=== PATIENT | female | born 1960 | race Caucasian/White ===

== ENCOUNTER 2018-10-12 08:25 | Outpatient (REF) | payer BC, SELFPAY ==
[2018-10-12 15:25] LABS: ALT 30 U/L (12-78); AST 21 U/L (15-37); Calculated LDL 143 mg/dL; Cholesterol 227 mg/dL (50-200); HDL Cholesterol 69 mg/dL (40-60); Triglyceride 79 mg/dL (30-150)
== END 2018-10-12 08:45 ==
LOC: NCHCN 08:25
PROVIDERS: PCP Nurse Practitioner Family; Visit Provider Nurse Practitioner Family
DX: Z13.220 Encounter for screening for lipoid disorders (principal)
CPT/HCPCS: 80061; 83721; 84450; 84460

== ENCOUNTER 2018-10-29 13:44 | Outpatient (REF) | payer BC, SELFPAY ==
--- NOTE | 2018-10-29 09:45 | PAPFT_PTH ---
PATIENT: Whitney Fam LOC: [facility] U#:[id number] AGE/SX: 58/F ROOM: RE10/29/[address]: Bernice Cheung : 1960 BED: DIS: 10/29/2018 SPEC #: [id number] RECD: 10/30/18 13:01 STATUS: KYLE REViri #: [id number] SETH: 10/29/18 09:[address]: Bernice Cheung DEPT: [facility] Cytology RECD BY: Xiomara Rees Tissues: 1 - CX/ENDOCX FOR PAP SMEARS Procedures: PAP THIN PREP/UVM Screening HPV DNA PROBE Comments: [id number]
== END 2018-10-29 14:04 ==
LOC: NCHCN 13:44
PROVIDERS: PCP Nurse Practitioner Family; Visit Provider Nurse Practitioner Family
DX: Z00.00 Encounter for general adult medical examination without abnormal findings (principal); Z12.4 Encounter for screening for malignant neoplasm of cervix; Z11.51 Encounter for screening for human papillomavirus (HPV); Z01.419 Encounter for gynecological examination (general) (routine) without abnormal findings
CPT/HCPCS: 88142; 87624

== ENCOUNTER 2018-12-28 01:28 | Outpatient (CLI) | payer BC, SELFPAY ==
--- NOTE | 2018-12-28 10:58 | DI.MAMMO_ITS ---
EXAM: MG MAMMO SCREENING CLINICAL HISTORY: SCREENING, Z12.31 TECHNIQUE: Mammograms were interpreted according to the usual protocol including computer analysis w [employer]ocent CAD system, tomosynthesis and C-view imaging. COMPARISON: [id number] FINDINGS: The breasts are composed of scattered areas of fibroglandular density, breast density category B. Th ere are no suspicious masses or suspicious microcalcifications. There is no significant interval lim ge when compared with the previous images. IMPRESSION: Category 1, negative mammogram. Yearly screening mammography is recommended. BI-RADS Cat 1 - Negative Breast Density - Category B - Scattered areas of fibroglandular density
== END 2018-12-28 01:48 ==
PROVIDERS: PCP Nurse Practitioner Family; Visit Provider Nurse Practitioner Family
DX: Z12.31 Encounter for screening mammogram for malignant neoplasm of breast (principal)
CPT/HCPCS: 77063; 77067

== ENCOUNTER 2019-10-08 17:56 | Outpatient (REF) | payer BC, SELFPAY | END 2019-10-08 18:16 | LOC: NCHCN 17:56 | PROVIDERS: PCP Nurse Practitioner Family; Visit Provider Family Medicine | DX: N39.0 Urinary tract infection, site not specified (principal) | CPT/HCPCS: 87077; 87086; 87186 ==

== ENCOUNTER 2020-02-07 02:24 | Outpatient (CLI) | payer BC, SELFPAY ==
[2020-02-08 20:59] LABS: COVID-19 RT-PCR UVMMC Result Negative (Negative)
== END 2020-02-07 02:44 ==
PROVIDERS: PCP Nurse Practitioner Family; Visit Provider Surgery
DX: Z11.59 Encounter for screening for other viral diseases (principal); Z01.818 Encounter for other preprocedural examination
CPT/HCPCS: U0003

== ENCOUNTER 2020-02-29 02:52 | Outpatient (CLI) | payer BC, SELFPAY ==
[2020-03-01 19:29] LABS: COVID-19 RT-PCR UVMMC Result Negative (Negative)
== END 2020-02-29 03:12 ==
PROVIDERS: PCP Nurse Practitioner Family; Visit Provider Surgery
DX: Z11.59 Encounter for screening for other viral diseases (principal); Z01.818 Encounter for other preprocedural examination
CPT/HCPCS: U0003

== ENCOUNTER 2021-03-05 01:34 | Outpatient (CLI) | payer BC, SELFPAY ==
--- NOTE | 2021-03-05 | DI.MAMMO_ITS ---
Exam(s) MAMMO SCREENING EXAM: MAMMO SCREENING CLINICAL HISTORY: SCREENING, Z12.31 TECHNIQUE: Mammograms were interpreted according to the usual protocol including computer analysis w Deep-[employer]ure CAD system, tomosynthesis and C-view imaging. COMPARISON: FINDINGS: The breasts are of moderate density with fairly symmetrical distribution of fibroglandular tissue. N o dominant mass or clumped microcalcification is identified in either breast. The current examinatio n is compared with previous examinations including December 2018 and there has been no gross interval change in appearance in comparison with the prior studies. IMPRESSION: No specific evidence of malignancy at this time. Routine screening examinations are suggested at yea rly intervals in this age group according to the ACS ACR guidelines. BI-RADS Category 1 - Negative Breast Density - Category B - Scattered areas of fibroglandular density
== END 2021-03-05 01:54 ==
PROVIDERS: PCP Nurse Practitioner Family; Visit Provider Nurse Practitioner Family
DX: Z12.31 Encounter for screening mammogram for malignant neoplasm of breast (principal)
CPT/HCPCS: 77063; 77067

== ENCOUNTER 2021-08-20 11:06 | Outpatient (REF) | payer BC, SELFPAY ==
--- NOTE | 2021-08-20 10:20 | PAPFT_PTH ---
PATIENT: Whitney Fam LOC: [facility] U#:[id number] AGE/SX: 61/F ROOM: RE08/20/[address]: Juliette Cates DO : 1960 BED: DIS: 08/20/2021 SPEC #: [id number] RECD: 08/20/21 13:14 STATUS: KYLE REQ #: [id number] SETH: 08/20/21 10:[address]: Juliette Cates DEPT: [facility] Cytology RECD BY: Xiomara Rees ENTERED: 08/20/21 13:15 SP TYPE: PAPFT OTHR DR: Bernice Cheung Tissues: 1 - CX/ENDOCX FOR PAP SMEARS Procedures: PAP THIN PREP/UVM Screening HPV DNA PROBE Comments: [id number]
== END 2021-08-20 11:07 | disposition home or self-care (01) ==
LOC: LBN 11:06
PROVIDERS: PCP Nurse Practitioner Family; Visit Provider Obstetrics & Gynecology
DX: Z11.51 Encounter for screening for human papillomavirus (HPV) (principal)
CPT/HCPCS: 88142; 87624

== ENCOUNTER 2021-10-25 16:15 | Outpatient (REF) | payer BC, SELFPAY ==
--- NOTE | 2021-10-25 16:00 | ENDOMET_PTH ---
PATIENT: Whitney Fam LOC: [facility] U#:[id number] AGE/SX: 61/F ROOM: RE10/25/[address]: Juliette Cates DO : 1960 BED: DIS: 10/25/2021 SPEC #: [id number] RECD: 10/25/21 17:20 STATUS: KYLE REQ #: [id number] SETH: 10/25/21 16:[address]: Juliette Cates DEPT: Surgical Specimen RECD BY: Xiomara Rees ENTERED: 10/25/21 17:22 SP TYPE: Endomet OTHR DR: Bernice Cheung Tissues: 1 - ENDOMETRIUM BX/LUCIANO Procedures: GROSS AND MICRO LEVEL 4 Comments: [id number]
== END 2021-10-25 16:16 | disposition home or self-care (01) ==
LOC: LBN 16:15
PROVIDERS: PCP Nurse Practitioner Family; Visit Provider Obstetrics & Gynecology
DX: R87.618 Other abnormal cytological findings on specimens from cervix uteri (principal)
CPT/HCPCS: 88305

== ENCOUNTER 2023-10-08 01:15 | Outpatient (CLI) | payer BC, SELFPAY ==
--- OUTSIDE RECORDS SUMMARY | 2023-10-08 01:16 | XMS_ITS | Encounter Summary ---
Author Organization [facility] Address [address] [place] [address] Care Team Providers Care Stitcher Hand Name Role Phone Unavailable Primary Care Provider Unavailabl e Encounter Details Date Type Department Care Team (Late st Contact Info) Description 12/06/2011 Results Only [facility] Laboratory Services - [facility] [place] [place] [address] [place] [address] Brigitte Almanza MD [address] [place] [phone] Social History Tobacco Use Types Packs/Day Years Used Date Smoking Tobacco: Never Assessed Sex and Gender Information Value Date Recorded Sex Assigned at Not on file Gender Identity Not on file Sexual Orientation Not on file documented as of this encounter Plan of Treatment Not on file documented as of this encounter Procedures Procedure Name Priority Date/Time Associated Diagnosis Comments PAP TEST- RESULT ONLY Routine 12/06/2011 0:00 EDT documented in this encounter Results * PAP TEST- RESULT ONLY (12/06/2011 0:00 EDT) Pathology Report: CYTOPATHOLOGY REPORT Reports generated via electronic interface contain original data; however they are lacking the format of the original report. Caution should be taken when reading/interpreti ng unformatted reports. Name: ? RAY FAM ? Accession #: ? [id number] ? : ? 1960 (Age: 51) ??F ?Collect Date: ? 12/06/2011 ? Location: ? [facility] ? Receive Date: ? 12/10/2011 ? Provider: BRIGITTE ALMANZA MD Copy to: ? Final Report SPECIMEN ADEQUACY ? Satisfactory for Evaluation - transformation zone component present GENERAL CATEGORIZATION ? Other, see interpretation INTERPRETATION ? Reactive cellular changes associated with inflammation present (includes repair). Endometrial cells present in a woman equal to or greater than age 40. Negative for Intraepithelial Lesion. EDUCATIONAL NOTES/RECOMMENDATI ONS ? Benign appearing endometrial cells on Pap tests are usually a normal finding in women with regular menstrual cycles, especially if the Pap test was collected during the first half of the menstrual cycle. There is data showing that endometrial cells on Pap tests may be associated with endometrial/uterin e abnormalities in post menopausal women or in perimenopausal women with abnormal bleeding. There is limited data on the significance of benign endometrial cells in post menopausal women on HRT. ??Clinical correlation is recommended. Note: ??The Pap test is not an accurate test for the screening of endometrial lesions and should not be used as a follow up in patients with clinical suspicion of endometrial pathology. Specimen/Source: ??Pap Test, Endocervix, ThinPrep Imaging System with manual evaluation Document reviewed and electronically signed by: ? BRIGITTE PISANO MD ? Report ??Date: 12/16/2011 16:49 HPV with Pap Test ? Date Ordered: ? 12/16/2011 ? Status: ?? Signed Out ?Date Complete: ? 12/18/2011 ? By: ??System Interface ? Date Reported: ? 12/18/2011 ? Interpretation RESULT: Negative for HPV. No E6 or E7 mRNA is detected from HPV types 16,18,31,33,35, 39,45,51,52,56,58, 59,66, and 68 by ship boss mediated amplification. Comments Document reviewed and electronically signed by: ? System Interface ? Report date: 12/18/2011 By the signature above, the attending physician certifies that he/she has personally conducted a gross and/or microscopic examination of the described specimens and rendered or confirmed the above diagnosis. End of Report SHARRON MURPHY 12/06/2011 12/10/2011 Brigitte Almanza MD PATHOLOGY ORDERABLES Performing Organization Address City/State/[facility] Co de Phone Number SHARRON MURPHY [address] [place] [address] documented in this encounter Visit Diagnoses Not on filedocumented in this encounter
--- OUTSIDE RECORDS SUMMARY | 2023-10-08 01:16 | XMS_ITS | Encounter Summary ---
Author Organization [facility] Address [address] [place] [address] Care Team Providers Care Shampoo Technician Name Role Phone Unavailable Primary Care Provider Unavailabl e Encounter Details Date Type Department Care Team (Late st Contact Info) Description 10/29/2018 Results Only [facility]- [facility] [phone] Reed Cheung FNP [address] [facility] [address] [place] [address] Social History Tobacco Use Types Packs/Day Years [...] Diagnosis Comments PAP TEST- RESULT ONLY Routine 10/29/2018 0:00 EDT documented in this encounter Results * PAP TEST- RESULT ONLY (10/29/2018 0:00 EDT) Pathology Report: CYTOPATHOLOGY REPORT Reports generated via electronic interface contain original data; however they are lacking the format of the original report. Caution should be taken when reading/interpreti ng unformatted reports. Name: ? RAY FAM ? Accession #: ? [id number] ? : ? 1960 (Age: 58) ??F ?Collect Date: ? 10/29/2018 ? Location: ? [facility] ? Receive Date: ? 11/02/2018 ? Provider: REED CHEUNG MUSICAL INSTRUMENT SUPERVISOR Copy to: ? Final Report SPECIMEN ADEQUACY ? Satisfactory for Evaluation - transformation zone component present GENERAL CATEGORIZATION ? Negative for Intraepithelial Lesion or Malignancy ?? Menstrual/Pregnanc y Status: ??Menopausal Other: Additional clinical information: Z00.00 Z12.4 Z01.419 Specimen/Source: ??Pap Test, Cervix/Endocervix, ThinPrep Imaging System with manual evaluation Document reviewed and electronically signed by: ? Fe Foreman, CT(ASCP) ? Report ??Date: 11/05/2018 11:38 HPV with Pap Test ? Date Ordered: ? 11/05/2018 ? Status: ?? Signed Out ?Date Complete: ? 11/06/2018 ? By: ??System Interface ? Date Reported: ? 11/06/2018 ? Interpretation RESULT: Negative for HPV. No E6 or E7 mRNA is detected from HPV types 16,18,31,33,35, 39,45,51,52,56,58, 59,66, and 68 by paramedic rn mediated amplification. Comments Document reviewed and electronically signed by: ? System Interface ? Report date: 11/06/2018 By the signature above, the attending physician certifies that he/she has personally conducted a gross and/or microscopic examination of the described specimens and rendered or confirmed the above diagnosis. End of Report [facility] 10/29/2018 11/02/2018 Reed Cheung MUSICAL INSTRUMENT SUPERVISOR PATHOLOGY ORDERABLES [facility] [address] [place] [address] documented in this encounter Visit Diagnoses Not on filedocumented in this encounter
--- OUTSIDE RECORDS SUMMARY | 2023-10-08 01:16 | XMS_ITS | Clinical Summary ---
Author Organization [facility] Address [address] [place] [address] Care Team Providers Care Junior High Math Teacher Name Role Phone Bernice Cheung ANA Primary Care Provider [phone] Social History Tobacco Use Types Packs/Day Years Used Date Smoking Tobacco: Never Assessed Sex and Gender Information Value Date Recorded Sex Assigned at Not on file Gender Identity Not on file Sexual Orientation Not on file Plan of Treatment Health Maintenance Due Date Last Done Comments Hepatitis C Screen 1960 RSV Immunization ( o r 60+ Years) (1 - 1-dose 60+ series) 2021 COVID-19 Vaccine (2022-24 season) 2022 Care Teams Junior High Math Teacher Relationship Specialty Start Date End Date Bernice Cheung FNP [address] [place] [phone] PCP - General 10/25/21
--- OUTSIDE RECORDS SUMMARY | 2023-10-08 01:16 | XMS_ITS | Encounter Summary ---
Author Organization [facility] Address [address] [place] [address] Care Team Providers Care Head Waiter Name Role Phone Bernice Cheung ANA Primary Care Provider [phone] Encounter Details Date Type Department Care Team (Late st Contact Info) Description 08/21/2021 Lab Requisition [facility] Pathology & Laboratory Medicine - [address] [address] Juliette Cates [address] [place] [address] [place] [address] Encounter for other general examination Social History Tobacco Use Types Packs/Day Years Used Date Smoking Tobacco: Never Assessed Sex and Gender Information Value Date Recorded Sex Assigned at Not on file Gender Identity Not on file Sexual Orientation Not on file documented as of this encounter Plan of Treatment Not on file documented as of this encounter Procedures Procedure Name Priority Date/Time Associated Diagnosis Comments PAP TEST Today 08/20/2021 10:20 EDT Encounter for other general examination HPV DNA DETECTION WITH GENOTYPING, PCR Today 08/20/2021 10:20 EDT Encounter for other general examination documented in this encounter Results * HUMAN PAPILLOMAVIRUS (HPV) DETECTION-HIGH RISK TYPES (08/20/2021 10:20 EDT) HPV other High Risk types, PCR Negative Negative 08/25/2021 7:55 EDT [facility] Comment:No E6 or E7 mRNA is detected from HPV types 16,18,31,33,35,39,45,51,52,56,58,59,66, and 68 by adult education manager mediated amplification. Papanicolaou smear specimen (specimen) CERVIX UTERI STRUCTURE / Unknown 08/20/2021 10:20 EDT 08/23/2021 11:00 EDT Juliette Cates MICROBIOLOGY - GENER AL ORDERABLES [facility] [address] [place] [address] * PAP TEST (08/20/2021 10:20 EDT) Specimens A. Cervix and/or Endocervix , ThinPrep Imaging System with Manual Evaluation 08/25/2021 7:55 EDT [facility] Specimen Adequacy Satisfactory for Evaluation - transformation zone component present 08/25/2021 7:55 EDT [facility] General Categorization Negative for intraepithelial lesion or malignancy 08/25/2021 7:55 EDT [facility] Attestation . 08/25/2021 7:55 T [facility] at 0755 Clinical History See below 08/26/19 7:55 T [facility] HPV The result for the Human Papillomavirus (HPV) Detection-High Risk Types is Negative. No E6 or E7 mRNA is detected from HPV types 16,18,31,33,35,39 ,45,51,52,56,58,5 9,66, and 68 by adult education manager mediated amplification.Amanda ting was performed on specimen [id number] and was resulted on 08/25/2021 0753 EDT by [facility], LAB INSTRUMENT RESULTS IN 08/25/2021 7:55 EDT [facility] Performing Lab [facility] 08/25/2021 7:55 EDT [facility] Scanned Images 08/25/2021 7:55 EDT [facility] Papanicolaou smear specimen (specimen) CERVIX UTERI STRUCTURE / Unknown 08/20/2021 10:20 EDT 08/21/2021 15:49 EDT Juliette Cates PATHOLOGY ORDERABLES [facility] [address] [place] [address] documented in this encounter Visit Diagnoses Diagnosis Encounter for other general examination documented in this encounter Care Teams Head Waiter Relationship Specialty Start Date End Date Bernice Cheung FNP [address] [facility] [address] [place] [phone] PCP - General 10/25/21 documented as of this encounter
--- OUTSIDE RECORDS SUMMARY | 2023-10-08 01:16 | XMS_ITS | Encounter Summary ---
Author Organization [facility] Address [address] [place] [address] Care Team Providers Care Die Tripper Name Role Phone Unavailable Primary Care Provider Unavailabl e Encounter Details Date Type Department Care Team (Late st Contact Info) Description 08/09/2013 Results Only [facility] Laboratory Services - [facility] ([facility] [address] [place] [phone] Yessi Valles, SHARLENE Social History Tobacco Use Types Packs/Day Years [...] Diagnosis Comments PAP TEST- RESULT ONLY Routine 08/09/2013 0:00 EDT documented in this encounter Results * PAP TEST- RESULT ONLY (08/09/2013 0:00 EDT) Pathology Report: CYTOPATHOLOGY REPORT Reports generated via electronic interface contain original data; however they are lacking the format of the original report. Caution should be taken when reading/interpreti ng unformatted reports. Name: ? RAY FAM ? Accession #: ? [id number] ? : ? 1960 (Age: 53) ??F ?Collect Date: ? 08/09/2013 ? Location: ? [facility] ? Receive Date: ? 08/10/2013 ? Provider: YESSI VALLES NP Copy to: POLLO TOLEDO MD ? Final Report SPECIMEN ADEQUACY ? Satisfactory for Evaluation - transformation zone component present GENERAL CATEGORIZATION ? Negative for Intraepithelial Lesion or Malignancy ?? Hormonal/Contracep tive status: Yes: Mirena Specimen/Source: ??Pap Test, Cervix/Endocervix, ThinPrep Imaging System with manual evaluation Document reviewed and electronically signed by: ? Laisha Roth, CT(ASCP) ? Report ??Date: 08/16/2013 12:59 HPV with Pap Test ? Date Ordered: ? 08/16/2013 ? Status: ?? Signed Out ?Date Complete: ? 08/17/2013 ? By: ??System Interface ? Date Reported: ? 08/17/2013 ? Interpretation RESULT: Negative for HPV. No E6 or E7 mRNA is detected from HPV types 16,18,31,33,35, 39,45,51,52,56,58, 59,66, and 68 by geropsychologist mediated amplification. Comments Document reviewed and electronically signed by: ? System Interface ? Report date: 08/17/2013 By the signature above, the attending physician certifies that he/she has personally conducted a gross and/or microscopic examination of the described specimens and rendered or confirmed the above diagnosis. End of Report SHARRON MURPHY 08/09/2013 08/10/2013 Yessi Valles NP PATHOLOGY ORDERABLES SHARR[facility] MURPHY [address] [place] [address] documented in this encounter Visit Diagnoses Not on filedocumented in this encounter
--- OUTSIDE RECORDS SUMMARY | 2023-10-08 01:16 | XMS_ITS ---
Author Organization Unknown Address [address] [place] [phone] Phone Care Team Providers Care Rn Ambulatory Name Role Phone MARGOT CUEVAS Registered Nurse Unavailable SERA Portillo Attending Unavailable UNLISTED PROVIDER - REQUESTED Xhandoff Un available Social History Type Status Start Date End Date Code Code Syst em Smoking History Unknown if ever smoked [address] Sex Female Vital Signs Vital Sign Value Unit [place] Value [place] Unit Date/Time Recent/Initial? Code Code System Body Mass Index 19.20 kg/m2 10/14/2021 17:59 Initial 79982 -[address] [facility] Systolic Blood Pressure 137 mm[Hg] 10/14/2021 17:59 Initial 8480- 6 LOINC Diastolic Blood Pressure 96 mm[Hg] 10/14/2021 17:59 Initial 8462- 4 LOINC Body Surface Area 1.69 m2 10/14/2021 17:59 Initial 3140- 1 LOINC Height 175.260 0 cm 69.00 in 10/14/2021 17:59 Initial 8302- 2 LOINC O2 Saturation 98 % 2021 17:59 Initial 67778 -5 INC Pulse 78.0 /min 10/14/2021 17:59 Initial 8867- 4 LOINC Respiration 16 /min 10/15/19 17:59 Initial 9279- 1 LOINC Temperature 36.6 Adelina 97.9 F 10/15/19 17:59 Initial 8310- 5 LOINC Weight 58.97 kg 130.00 lbs 10/14/2021 17:59 Initial 29507 -7 [facility] Medications Medication Start Date End Date Route Frequency Dose Code Code System Medication Instructions Home Meds Ibuprofen 200MG Oral Tablet 10/14/2021 Unknown ORAL EVERY 6 HOURS 3 TABLET 156649 RxNorm TAKE 3 TABLET ORAL EVERY 6 HOURS FOR 24 HOURS THEN NEEDED FOR PAIN Erythromycin 5MG/1GM Ophthalmic Ointment 10/14/2021 Unknown RIGHT EYE FOUR TIMES A DAY 043166 RxNorm PLACE 1/4 INCH RIGHT EYE FOUR TIMES A DAY until pain free for 24 hours Ketorolac Tromethamine 0.5% Ophthalmic Solution 10/14/2021 Unknown OPHTHALMIC NEEDED FOUR TIMES A DAY [address] 1 DROP OPHTHALMIC NEEDED FOUR TIMES A DAY Assessment You had the following problems:LEFT CORNEAL ABRASION Hospital Discharge Instructions Should you have any questions prior to discharge, please contact a member of your healthcare team. If you have left the hospital and have any questions, please contact your primary care physician. Reason For Referral No Data Found Problems Problem Start Date Resolved Date Status Code Code System LEFT CORNEAL ABRASION active [id number] SNOMED-CT Allergies and Adverse Reactions Allergy Substance Reaction Severity Start Date Concern Status Co de Code System No Known Drug Allergies Active 678032888 SNOMED-CT Plan of Treatment OUTPATIENT PLAN: Discharge Medications Medication Dosage Route Frequency Prescribing MD Special Instructions Ibuprofen 200MG Oral Tablet 3 TABLET ORAL EVERY 6 HOURS MARSAN PAPI J TAKE 3 TABLET ORAL EVERY 6 HOURS FOR 24 HOURS THEN NEEDED FOR PAIN Erythromycin 5MG/1GM Ophthalmic Ointment RIGHT EYE FOUR TIMES A DAY MARSAN PAPI J PLACE 1/4 INCH RIGHT EYE FOUR TIMES A DAY until pain free for 24 hours Ketorolac Tromethamine 0.5% Ophthalmic Solution 1 DROP OPHTHALMIC NEEDED FOUR TIMES A DAY MARSAN PAPI J PLACE 1 DROP OPHTHALMIC NEEDED FOUR TIMES A DAY Your prescription was printed. Follow up: Please see your ophtometrist in 1-2 days. If you are unable to get in to see them, Please Call Dr. Christopher cheung at [facility] and let them know [facility] wanted you to be seen by an cutter hot knife or band master within 1 to 2 days and you were unable to get into see your own doctor. Dr. Christopher Cheung [facility] [phone] Other Instructions: Cool compresses for comfort. May patch eye also as discussed. Encounters Encounter Diagnosis Start Date Code Code Sys tem Injury of conjunctiva and co rneal abrasion without foreign body, left eye, initial encounter 10/14/2021 SNOMED-CT Personal Care Team Section Performer Name Performer Role Active Date Inactive Da te
--- OUTSIDE RECORDS SUMMARY | 2023-10-08 01:16 | XMS_ITS | Referral Summary ---
Author Organization [facility] Address [address] [place] [address] Care Team Providers Care Administrative Support Specialist Name Role Phone Bernice Cheung [facility] Primary Care Provider [phone] Social History Tobacco Use Types Packs/Day Years Used Date Smoking Tobacco: Never Assessed Sex and Gender Information Value Date Recorded Sex Assigned at Not on file Gender Identity Not on file Sexual Orientation Not on file Plan of Treatment Not on file Care Teams Administrative Support Specialist Relationship Specialty Start Date End Date Bernice Cheung FNP [address] [place] [phone] PCP - General 10/25/21
--- OUTSIDE RECORDS SUMMARY | 2023-10-08 01:16 | XMS_ITS | Encounter Summary ---
Author Organization [facility] Address [address] [place] [address] Care Team Providers Care Ceramic Painter Name Role Phone Bernice Cheung ANA Primary Care Provider [phone] Encounter Details Date Type Department Care Team (Late st Contact Info) Description 10/26/2021 Lab Requisition [facility] Pathology & Laboratory Medicine - [address] [address] Juliette Cates [address] [place] [address] [place] [address] Encounter for other general examination [...] Procedure Name Priority Date/Time Associated Diagnosis Comments SURGICAL PATHOLOGY Today 10/25/2021 16 :00 EDT Encounter for other general examination documented in this encounter Results * SURGICAL PATHOLOGY (10/25/2021 16:00 EDT) Note to Patient The following pathology results have been interpreted by your pathologist and may be available to you before your health provider has had the opportunity to review them. Please allow time for your provider to receive these results and explore management options, if applicable. 11/06/2021 19:22 EDT [facility] Final Diagnosis A. ENDOMETRIUM, BIOPSY: - Superficial strips of inactive endometrium with tubal metaplasia. - Scant fragments of benign endocervical tissue. 11/06/2021 19:22 EDT [facility] Attestation There was significant resident/fellow involvement in the diagnostic evaluation of this case. By the signature below, the attending physician certifies that they have personally conducted a gross and/or microscopic examination of the described specimens and rendered or confirmed the above diagnosis. 11/06/2021 19:22 EDT [facility] at [address] Clinical History Postmenopausal bleeding 11/06/2021 19:22 EDT [facility] Gross Description A. Received in formalin labelled with proper patient identification (initials B, R) and endometrial Bx is an aggregate of translucent mucus (1.3 x 0.9 x 0.1 cm). Entirely submitted in A1. RAY HARRISON 10/26/2021 10:50 11/06/2021 19:22 EDT [facility] Resident/Elier w: Nguyễn Borjas MD 11/06/2021 19:22 EDT [facility] Performing Lab [facility] 11/06/2021 19:22 EDT [facility] Scanned Images 11/06/2021 19:22 T [facility] Tissue ENTIRE ENDOMETRIUM / Unknown 10/25/2021 16:00 EDT 10/26/2021 9:26 EDT Juliette Cates PATHOLOGY ORDERABLES [facility] [address] [place] [address] documented in this encounter Visit Diagnoses Diagnosis Encounter for other general examination documented in this encounter Care Teams Ceramic Painter Relationship Specialty Start Date End Date Bernice Cheung FNP [address] [facility] [address] [place] [phone] PCP - General 10/25/21 documented as of this encounter
--- OUTSIDE RECORDS SUMMARY | 2023-10-08 01:16 | XMS_ITS | Encounter Summary ---
Author Organization [facility] Address [address] [place] [address] Care Team Providers Care Stud Driver Name Role Phone Bernice Cheung ANA Primary Care Provider [phone] Encounter Details Date Type Department Care Team (Late st Contact Info) Description 02/29/2020 Lab Requisition [facility] Pathology & Laboratory Medicine - [address] [address] Outr Resulting Lab, Provider Social History Tobacco Use Types Packs/Day Years Used Date Smoking Tobacco: Never Assessed Sex and Gender Information Value Date Recorded Sex Assigned at Not on file Gender Identity Not on file Sexual Orientation Not on file documented as of this encounter Plan of Treatment Not on file documented as of this encounter Procedures Procedure Name Priority Date/Time Associated Diagnosis Comments ZZCOVID-19 TEST [facility] PCR Today 02/29/2020 8:45 EST COVID-19 TESTING Routine 02/29/2020 8:45 EST documented in this encounter Results * COVID-19 TEST [facility] PCR (02/29/2020 8:45 EST) Swab ENTIRE NASOPHARYNX / Unknown 02/29/2020 8:45 EST 02/29/2020 15:54 EST Provider Outr Resulting Lab MICROBIOLOGY - GENERAL ORDERABLES [facility] [address] [place] [address] * COVID-19 TESTING (02/29/2020 8:45 EST) COVID-19 rt-PCR Result Negative Negative 03/01/2020 19:[address] [facility] Comment: Negative results do not preclude 2019-nCoV infection and should not be used as the sole basis for treatment or other patient management decisions. Negative results must be combined with clinical observations, patient history, and epidemiological information. This test was developed and its performance characteristics determined by [facility]. It has not been cleared or approved by the US Food and Drug Administration. FDA does not require this test to go through premarket FDA review. This test is used for clinical purposes. It should not be regarded as investigational or for research. This laboratory is certified under the Clinical Laboratory Improvement Amendments (CLIA) as qualified to perform high complexity clinical laboratory testing. This test is based on the [facility] COVID-19 Emergency Use Authorization (EUA) assay, with minor modification as defined by the FDA Performed on the Playbasis 7 Flex. Performing Lab [facility] 03/01/2020 19:[address] [facility] Swab 02/29/2020 8:45 EST 02/29/2020 15:54 EST Provider Outr Resulting Lab MICROBIOLOGY - GENERAL ORDERABLES [facility] [address] [place] [address] documented in this encounter Visit Diagnoses Not on filedocumented in this encounter Care Teams Stud Driver Relationship Specialty Start Date End Date Bernice Cheung FNP [address] [place] [address] [address] [place] [phone] PCP - General 10/25/21 documented as of this encounter
--- OUTSIDE RECORDS SUMMARY | 2023-10-08 01:16 | XMS_ITS | Encounter Summary ---
Author Organization [facility] Address [address] [place] [address] Care Team Providers Care Cigarette Machine Filler Name Role Phone Bernice Cheung ANA Primary Care Provider [phone] Encounter Details Date Type Department Care Team (Late st Contact Info) Description 02/07/2020 Lab Requisition [facility] Pathology & Laboratory Medicine - [address] [id number] Outr Resulting Lab, Provider Social History Tobacco [...] Priority Date/Time Associated Diagnosis Comments ZZCOVID-19 TEST [facility] PCR Today 02/07/2020 9:21 EST COVID-19 TESTING Routine 02/07/2020 9:21 EST documented in this encounter Results * COVID-19 TEST [facility] PCR (02/07/2020 9:21 EST) Swab ENTIRE NASOPHARYNX / Unknown 02/07/2020 9:21 EST 02/07/2020 15:37 EST Provider Outr Resulting Lab MICROBIOLOGY - GENERAL ORDERABLES [facility] [address] [place] [address] * COVID-19 TESTING (02/07/2020 9:21 EST) COVID-19 rt-PCR Result Negative Negative 02/08/2020 20:55 EST [facility] Comment: This test has not been FDA cleared or approved. This test has been authorized by FDA under an EUA for use by authorized laboratories. This test has been authorized only for detection of nucleic acid from 2019-nCoV, not for any other viruses or pathogens. This test is only authorized for the duration of the declaration that circumstances exist justifying the authorization of emergency use of in vitro diagnostic tests for detection and/or diagnosis of 2019-nCoV under section 564(b)(1) of Act, 21 U.S.C ?? 360bbb-3(b) (1), unless the authorization is terminated or revoked sooner. Negative results do not preclude 2019-nCoV infection and should not be used as the sole basis for treatment or other patient management decisions. Negative results must be combined with clinical observations, patient history, and epidemiological information. Performed on the Strap Fusion instrument Performing Lab [place] [facility] 02/08/2020 20:55 EST [facility] Swab 02/07/2020 9:21 EST 02/07/2020 15:37 EST Provider Outr Resulting Lab MICROBIOLOGY - GENERAL ORDERABLES [facility] [address] [place] [address] documented in this encounter Visit Diagnoses Not on filedocumented in this encounter Care Teams Cigarette Machine Filler Relationship Specialty Start Date End Date Bernice Cheung FNP [address] [place] [address] [address] [place] [phone] PCP - General 10/25/21 documented as of this encounter
--- OUTSIDE RECORDS SUMMARY | 2023-10-08 01:17 | XMS_ITS | Encounter Summary ---
Author Organization [facility] Address [facility] [place] [address] Care Team Providers Care Ware Carrier Name Role Phone Brigitte Almanza MD Primary Care Provider [phone] Reason for Visit * Auth/Cert - Closed Specialty Diagnoses / Procedures Referred By Wan sloan Referred To Contact Diagnoses Right carpal tunnel syndrome Procedures ENDOSCOPY WRIST W/ RELEASE TRANSVERSE CARPAL LIGAMENT Referral ID Status Reason Start Date Expiration Date Visits Re quested Visits Authorized [id number] Closed 1 1 Encounter Details Date Type Department Care Team (Latest Contact Info) Description 02/07/2015 12:56 PM EST - 02/07/2015 4:49 PM EST Hospital Encounter [facility] [phone] Kingsley Perry MD [facility] [place] [address] Discharge Disposition: Home Social History Tobacco Use Types Packs/Day Years Used Date Smoking Tobacco: Former Smokeless Tobacco: Never Alcohol Use Standard Drinks/Week Comments No 0 (1 standard drink = 0.6 oz pur e alcohol) Sex and Gender Information Value Date Recorded Sex Assigned at Not on file Gender Identity Not on file Sexual Orientation Not on file documented as of this encounter Last Filed Vital Signs Vital Sign Reading Time Taken Comments Blood Pressure 129/67 02/07/2015 4:17 PM EST Pulse 76 02/07/2015 4:17 PM EST Temperature 36.4 ??C (97.5 ??F) 02/07/2015 4:17 PM ES T Respiratory Rate 20 02/07/2015 4:17 PM EST Oxygen Saturation 97% 02/07/2015 4:17 PM EST Inhaled Oxygen Concentration - - Weight 64.9 kg (143 lb) 02/07/2015 1:13 PM EST Height 175.3 cm (5' 9) 02/07/2015 1:13 PM EST Body Mass Index 21.12 02/07/2015 1:13 PM EST documented in this encounter Discharge Instructions * Discharge Instructions* Kaykay Fernández RN - 02/07/2015 1:33 PM EST Tylenol 1000 mg and Gabapentin 300 mg ws given at 1:30 pm. You may take Tylenol again after 9:30 pm. Moderate Sedation You may have received medication before and/or during your procedure, which affects your judgement and reaction time. Do not drive, operate machinery, drink alcoholic beverages, or make any legal decisions for 24 hours. Be careful on stairs, as you may be unsteady on your feet. You may eat a regular diet as tolerated. Do not smoke if you are alone. IV site -- slight redness, or tenderness is normal, you can use a warm compress. If tenderness and redness increases or foul drainage occurs, please contact your M. D. Questions or problems after 5pm or on a weekend: Call the [facility] hand miter operator and ask for the physician water reclamation systems operator covering for your doctor. * Patient Instructions* Abdelrahman Ashford - 02/07/2015 4:13 PM EST Orthopaedic Surgery Discharge Instructions Surgery: Endoscopic Right Carpal Tunnel Release Diet: You may eat a regular diet as tolerated. Driving: No, not until you are cleared to do so by your Orthopedic clinic. Ideally you should not drive while you are on narcotic pain meds as these can affect judgement and reaction time. Call your Surgeon with any questions. Medications: 1. The pain medication you are on can cause constipation so increase your intake of fluids and fiber while you are on them. You can also take an lwoy-clc-bekhkin stool softener, colace or senna, to facilitate a bowel movement. 2. If you need a renewal on your narcotic pain medication, you need to give the Orthopedic clinic enough time to process your request. This can take up to three days, so plan accordingly. Wound: Keep operative hand clean and dry, do not submerge in water until follow- up. You may remove the dressing in 48 hours and then apply a bandaid until follow-up. Activity: Light activity only in the operative hand. Be careful on stairs, as you may be unsteady on your feet. You should also keep the hand elevated after surgery. This will help to decrease swelling and improve comfort. Ice may be applied but make sure it is double- bagged as to not get the incision or dressings wet. Call your doctor (#[phone]) if: ?? You have a fever > 101.5 or experience chills Increased discharge from the incision Any redness or swelling around the incision Increased pain or change in the pain that is not controlled by your pain medications WHERE TO CALL WITH QUESTIONS [facility] Ask for the resident water reclamation systems operator for your provider [facility] (7:00am - 5:00pm) documented in this encounter Medications at Time of Discharge Medication Sig Dispensed Refills Start Date End Date oxyCODONE (ROXICODONE) 5 mg Tablet Take 1 tablet by mouth every 4 hours as needed for Pain. 5 tablet 0 03/03/2015 03/16/2015 HYDROcodone-acetaminoph en (NORCO) 5-325 mg Tablet Take 1-2 tablets by mouth every 6 hours as needed for Pain. 15 tablet 0 02/07/2015 03/03/2015 naproxen sodium (ANAPROX) 220 mg Tablet Take 220 mg by mouth as needed. 03/16/2015 documented as of this encounter H&P Notes * Kingsley Perry MD - 02/07/2015 1:31 PM EST Patient Name: Whitney Fam Patient Age: 54 y.o. Birthdate: 1960 Admit date: 02/07/2015 Attending Physician: Kingsley Perry MD I interviewed and examined Whitney Fam. There have been no apparent interval changes in her health status since the most recent history and physical was done. KINGSLEY PERRY MD * Kingsley Perry MD - 02/06/2015 5:03 PM EST Patient Name: Whitney Fam Patient Age: 54 y.o. Birthdate: 1960 Admit date: (Not on file) Attending Physician: Kingsley Perry MD See scanned document for pre-procedural H&P completed on 01/17/15. documented in this encounter Miscellaneous Notes * Op Note - Kingsley Perry MD - 02/07/2015 3:09 PM EST [facility] [place] Operative Note Patient Name: Whitney Fam : [id number] MR#: [id number] Case Date: 02/07/2015 Surgeon: Surgeon(s) and Role: * Kingsley Perry MD - Primary * Abdelrahman Ashford MD PREOPERATIVE DIAGNOSIS: Right carpal tunnel syndrome. POSTOPERATIVE DIAGNOSIS: Right carpal tunnel syndrome. PROCEDURE PERFORMED: Endoscopic right carpal tunnel decompression. ANESTHESIA: Local with sedation. OPERATIVE INDICATION: The patient is a 54 y.o.-year-old female with EMG proven right carpal syndrome. It was refractory to conservative treatment. She was brought to the operating room for endoscopicright carpal tunnel decompression. SUMMARY OF PROCEDURE: After 2 gm of intravenous cefazolin was administered, the patient's right upper extremity was prepped with Hibiclens scrub and ChloraPrep. Her right arm was draped in a sterile fashion. A preoperative time-out was performed as per [facility] [place] protocol. 6mL of 1% lidocaine with epinephrine buffered with sodium bicarbonate was injected over the median nerve at the level of the wrist as well as over the palmar side of the patient's right hand. Her right arm was then exsanguinated with an Esmarch bandage. A brachial tourniquet was inflated to 250 mmHg. A transverse incision was made at the palmar wrist crease in line with the ring finger ray. Subcutaneous spreading was performed in a blunt fashion down to the level of the investing fascia of the palmar surface of the forearm. Throughout this dissection, care was taken to avoid injury to subcutaneous neurovascular structures. The investing fascia was incised. It was elevated as a distally based flap which allowed for entry into the carpal tunnel. A synovial elevator was then used to dissect synovium from the undersurface of the transverse carpal ligament. Small and large hamate finders were inserted into the carpal tunnel to confirm the proper level of entry. The Jaron endoscopic carpal tunnel release device was inserted into the carpal tunnel. It was passed distally until the distal edge of the transverse carpal ligament was well visualized. The blade was elevated. The device was withdrawn, transecting the transverse carpal ligament. The device was reinserted and complete release of the transverse carpal ligament was confirmed. Under direct vision, the investing fascia at of the palmar surface of forearm was released well proximal to the wrist incision site using tenotomy scissors. The incision was irrigated and was closed with 4-0 nylon suture. A sterile soft dressing was applied. The tourniquet was released with a total tourniquet time of 6 minutes. All digits rapidly became pink and warm with brisk capillary refill. She was then transferred to the recovery room in stable condition. Estimated blood loss was minimal. IV fluid replacement was 600 mL of crystalloid. She tolerated the procedure well without apparent complications. Attestation: Case Date: 02/07/2015 I was present and I participated during the entire procedure. KINGSLEY PERRY MD 02/07/2015 * Brief Op Note - Kingsley Perry MD - 02/07/2015 3:08 PM EST Brief Operative Note Patient Name: Whitney Fam : [id number] MR#: [id number] Case Date: 02/07/2015 Surgeon: Surgeon(s) and Role: * Kingsley Perry MD - Primary * Abdelrahman Ashford MD Preoperative diagnosis: Right carpal tunnel syndrome Postoperative diagnosis: Right carpal tunnel syndrome Procedure(s): ENDOSCOPY WRIST W/ RELEASE TRANSVERSE CARPAL LIGAMENT Anesthesia: MAC Complications: none Fluids: 600 cc crystalloid Estimated Blood Loss: None Disposition: aroused from sedation, and taken to the recovery room in a stable condition Condition: doing well without problems Attestation: Case Date: 02/07/2015 I was present and I participated during the entire procedure. (Please see the Surgical Encounter Summary for any Implant and Specimen details pertinent to this patient.) documented in this encounter Plan of Treatment Upcoming Encounters Date Type Department Care Team (Late st Contact Info) Description 04/13/2024 2:00 PM EST Office Visit Dermatology at [place] [address] [address] Wan Wellington MD [address] [place] [address] documented as of this encounter Procedures Procedure Name Priority Date/Time Associated Diagnosis Comments ENDOSCOPY WRIST W/ RELEASE TRANSVERSE CARPAL LIGAMENT (WRVU 6.39) 02/07/2015 3:51 PM EST Bilateral carpal tunnel syndrome documented in this encounter Visit Diagnoses Diagnosis Carpal tunnel syndrome s/p R ECTR 02/07/15 (Vicky)- Primary Carpal tunnel syndrome documented in this encounter Administered Medications Inactive Administered Medications - up to 3 most recent administrations Medication Order MAR Action Action Date Dose Rate Site acetaminophen (TYLENOL) tablet 1,000 mg 1,000 mg, Oral, ONCE, 1 dose, On Fri02/07/15 at 1315, Maximum dose of acetaminophen is 4000 mg from all sources in 24 hours., Routine Given 02/07/2015 1:15 PM EST 1,000 mg gabapentin (NEURONTIN) capsule 300 mg 300 mg, Oral, ONCE, 1 dose, On Fri02/07/15 at 1315, Routine Given 02/07/2015 1:15 PM EST 300 mg lactated ringers infusion 1,000 mL 1,000 mL, at 100 mL/hr, Intravenous, CONTINUOUS, Starting on Fri02/07/15 at 1330, Until Fri02/07/15 at 1647, Day of Surgery (Day of Procedure) New Bag 02/07/2015 1:26 PM EST 1,000 mLs 100 mL/hr documented in this encounter Active and Recently Administered Medications Times are shown in EST. Scheduled Medication Order 02/05/2015 02/06/2015 02/07/2015 acetaminophen (TYLENOL) tablet 1,000 mg (COMPLETED) 1,000 mg, Oral, ONCE, 1 dose, On Fri02/07/15 at 1315, Maximum dose of acetaminophen is 4000 mg from all sources in 24 hours., Routine 1315 (Given - Provid er: Kaykay Jeff RN) gabapentin (NEURONTIN) capsule 300 mg (COMPLETED) 300 mg, Oral, ONCE, 1 dose, On Fri02/07/15 at 1315, Routine 1315 (Given - Provid er: Kaykay Jeff RN) Continuous Medication Order 02/05/2015 02/06/2015 02/07/2015 lactated ringers infusion 1,000 mL (CANCELED) 1,000 mL, at 100 mL/hr, Intravenous, CONTINUOUS, Starting on Fri02/07/15 at 1330, Until Fri02/07/15 at 1647, Day of Surgery (Day of Procedure) 1326 (New Bag - Prov ider: Kaykay Jeff RN)1603 (Anesthesia Volume Adjustment - Provider: Yu Medellin CRNA) PRN Medication Order 02/05/2015 02/06/2015 02/07/2015 lidocaine-EPINEPHrine 1 %-1:100,000 injection (CANCELED) ONCE PRN, Starting on Fri02/07/15 at 1532, Until Fri02/07/15 at 1647, Intra-Operative (Intra-Procedure), Routine 1532 (Given - Provid er: Kingsley Perry MD - Comment: 20ml of 1% lido with epi mixed with 2ml of 8.4% sodium bicarb. 6ml administered to patient pre-op.) sodium bicarbonate 8.4 % (1 mEq/mL) injection (CANCELED) ONCE PRN, Starting on Fri02/07/15 at 1605, Until 02/07/15 at 1647, Intra-Operative (Intra-Procedure), Routine 1605 (Given - Provid er: Kingsley Perry MD - Comment: 20ml of 1% lido with epi mixed with 2ml of 8.4% sodium bicarb. 6ml administered to patient pre-op.) No Frequency Medication Order 02/05/2015 02/06/2015 02/07/2015 ceFAZolin (ANCEF) 2 gram/50 mL infusion (COMPLETED) 1 dose, Starting on Fri02/07/15 at 1309, Until Fri02/07/15 at 1553, KAYKAY FERNÁNDEZ: cabinet override 1553 (Given - Provid er: Yu Medellin CRNA) documented in this encounter Care Teams Ware Carrier Relationship Specialty Start Date End Date Brigitte Almanza MD [address] [place] [address] PCP - General 08/19/14 12/29/18 documented as of this encounter
--- OUTSIDE RECORDS SUMMARY | 2023-10-08 01:17 | XMS_ITS | Encounter Summary ---
Author Organization [facility] Address [address] [place] [address] Care Team Providers Care Automation Machine Builder Name Role Phone Unavailable Primary Care Provider Unavailabl e Encounter Details Date Type Department Care Team (Late st Contact Info) Description 04/26/2005 Results Only [facility] Family Medicine - [address] [address] Brigitte Almanza MD [address] [place] [phone] Social History Tobacco Use Types Packs/Day Years Used Date Smoking Tobacco: Never Assessed Sex and Gender Information Value Date Recorded Sex Assigned at Not on file Gender Identity Not on file Sexual Orientation Not on file documented as of this encounter Plan of Treatment Not on file documented as of this encounter Procedures Procedure Name Priority Date/Time Associated Diagnosis Comments CYTOPATHOLOGY Routine 04/26/2005 0:00 EST documented in this encounter Results * CYTOPATHOLOGY (04/26/2005 0:00 EST) Pathology Report: CYTOPATHOLOGY REPORT Reports generated via electronic interface contain original data; however they are lacking the format of the original report. Caution should be taken when reading/interpreti ng unformatted reports. Name: ? RAY FAM ? Accession #: ? [id number] : ? 1960 (Age: 44) ??F ?Collect Date: ? 04/26/2005 Location: ? [facility] ? Receive Date: ? 04/30/2005 Provider: ?BRIGITTE ALMANZA MD Copy to: ? Specimen/Source: ?ThinPrep Pap Test, Endocervix, processed on [employer] ThinPrep Imaging System, with manual evaluation Last Menstrual Period: ? Hormonal/Contracep tive Status: ? Intrauterine device Other: ? HPVA - HPV testing requested if ASC-US on the current ThinPrep Pap test. ? SPECIMEN ADEQUACY ? Satisfactory for Evaluation - transformation zone component present GENERAL CATEGORIZATION ? Negative for Intraepithelial Lesion or Malignancy ? Document reviewed and electronically signed by: ? ARANZA Schwartz(ASCP) ? Report Date: ??05/02/2005 10:49 End of Report SHARRON MURPHY 04/26/2005 04/30/2005 Brigitte Almanza MD PATHOLOGY ORDERABLES Performing Organization Address City/State/[facility] Co de Phone Number SHARRON MURPHY [address] [place] [address] documented in this encounter Visit Diagnoses Not on filedocumented in this encounter
--- OUTSIDE RECORDS SUMMARY | 2023-10-08 01:17 | XMS_ITS | Encounter Summary ---
Author Organization [facility] [place] [address] Care Team Providers Care Building Supplies Salesperson Retail Name Role Phone Brigitte Almanza MD Primary Care Provider [phone] Reason for Visit * Auth/Cert Specialty Diagnoses / Procedures Referred By Wan sloan Referred To Contact Diagnoses Left carpal tunnel syndrome Procedures PRO WRIST ARTHROSCOP, RELEASE XVERS LIG ENDOSCOPY WRIST W/ RELEASE TRANSVERSE CARPAL LIGAMENT Referral ID Status Reason Start Date Expiration Date Visits Re quested Visits Authorized [id number] 1 1 Encounter Details Date Type Department Care Team (Late st Contact Info) Description 03/03/2015 3:25 PM EST - 03/03/2015 3:55 PM EST Surgery [facility] [place] [phone] Kingsley Perry MD [facility] [place] [address] ENDOSCOPY WRIST W/ RELEASE TRANSVERSE CARPAL LIGAMENT (WRVU 6.39) Social History Tobacco Use Types Packs/Day Years [...] Sign Reading Time Taken Comments Blood Pressure 111/53 03/03/2015 3:45 PM EST Pulse 68 03/03/2015 3:45 PM EST Temperature 37.1 ??C (98.8 ??F) 03/03/2015 3:30 PM ES T Respiratory Rate 16 03/03/2015 3:45 PM EST Oxygen Saturation 99% 03/03/2015 3:45 PM EST Inhaled Oxygen Concentration - - Weight 64.4 kg (142 lb) 03/03/2015 2:35 PM EST Height 174 cm (5' 8.5) 03/03/2015 2:35 PM EST Body Mass Index 21.27 03/03/2015 2:35 PM EST documented in this encounter Discharge Instructions * Discharge Instructions* Friend, Che Ro RN - 03/03/2015 2:57 PM EST At 3 pm you received 1000 mg of acetaminophen- Your next dose should not be taken before 8 hours have passed. Next dose not before- 11 pm You should not take more than a total of 3000 mg of acetaminophen in a 24 hour period. General Anesthesia Discharge Instructions Go home and rest. You may be sleepy for several hours. Take it easy as sudden position changes may cause nausea and/or dizziness. Use caution on stairs. Follow a light to regular diet as tolerated today. If nausea occurs, start with clear liquids, and progress slowly to a regular diet. Do not drive, operate machinery, drink alcoholic beverages or make any legal decisions after havinggeneral anesthesia. The medications given change your reaction time and alter your judgement. IV site -- slight redness is normal, you can use warm compresses. If tenderness and redness increases or foul drainage occurs, please contact your M.D. Patients who have had endotracheal tubes/LMA (tubes used by the anesthesia staff to ensure a safe airway during your operation) may have a sore throat. This is normal and cold liquids or soothing lozengers will help ease this discomfort. Narcotic pain medications can cause constipation, please ask the surgeons office what they recommend for prevention of this. Some non-pharmaceutical means of constipation prevention include increasing intake of fluids, eating more fruits and vegetables as well as fruit juices. If you are uncomfortable and/or unable to urinate within 8 hours of discharge and it is before 5 pm, call your physician. If it is after 5pm go to the closest emergency room or call the hospital laydown machine operator at [phone] and ask for physician lithopone mill worker covering for your physician. Questions or problems after 5pm or on a weekend: Call the [facility] laydown machine operator at and ask for the physician lithopone mill worker covering for your doctor. * Patient Instructions* Travis Martinez - 03/03/2015 2:18 PM EST Surgery: Left Wrist Endoscopic Carpal Tunnel Release Diet: You may eat [...] on them. You can also take an lmsl-lvh-nibolag stool softener, colace or senna, to facilitate a bowel movement. 2. If you need a renewal on your narcotic pain medication, you need to give the Orthopedic clinic enough time to process your request. This can take up to three days, so plan accordingly. Wound: Keep dressing on for 48 hours, then you may apply a band-aid until follow-up. Activity: Light activity only in the operative hand. Be careful on stairs, as you may be unsteady on your feet. Call your doctor (#[phone]) if: 1. You have a fever > 101.5 or experience chills ??? Increased discharge from the incision ??? Any redness or swelling around the incision ??? Increased pain or change in the pain that is not controlled by your pain meds WHERE TO CALL WITH QUESTIONS [facility] Ask for the resident lithopone mill worker for your provider [facility] (7:00am - 5:00pm) Future Appointments Date Time Provider Department Center 03/16/2015 1:30 PM Francine Campoverde PA [facility] documented in this encounter Medications at Time of Discharge Medication Sig Dispensed Refills Start Date End Date oxyCODONE (ROXICODONE) 5 mg Tablet Take 1 tablet by mouth every 4 hours as needed for Pain. 5 tablet 0 03/03/2015 03/16/2015 naproxen sodium (ANAPROX) 220 mg Tablet Take 220 mg by mouth as needed. 03/16/2015 documented as of this encounter Progress Notes * Valeria Subramanian RN - 03/03/2015 4:27 PM EST Patient discharge instructions and medications reviewed with patient and , questions answered, both verbalized understanding. documented in this encounter H&P Notes * Kingsley Perry MD - 03/03/2015 2:50 PM EST Patient Name: Whitney Fam Patient Age: 54 y.o. Birthdate: 1960 Admit date: 03/03/2015 Attending Physician: Kingsley Perry MD I interviewed and examined Whitney Fam. There have been no apparent interval changes in her health status since the most recent history and physical was done. She has responded well to her recentright carpal tunnel release and she presents today for left carpal tunnel release. KINGSLEY PERRY MD * Kingsley Perry MD - 03/02/2015 8:47 PM EST Patient Name: Whitney Fam Patient Age: 54 y.o. Birthdate: 1960 Admit date: (Not on file) Attending Physician: Kingsley Perry MD See scanned document for pre-procedural H&P completed on 02/27/15. documented in this encounter Miscellaneous Notes * Brief Op Note - Kingsley Perry MD - 03/03/2015 3:28 PM EST Brief Operative Note Patient Name: Whitney Fam : [id number] MR#: [id number] Case Date: 03/03/2015 Surgeon: Surgeon(s) and Role: * Kingsley Perry MD - Primary * Travis Martinez MD Preoperative diagnosis: Left carpal tunnel syndrome Postoperative diagnosis: Left carpal tunnel syndrome Procedure(s): ENDOSCOPY WRIST W/ RELEASE TRANSVERSE CARPAL LIGAMENT Anesthesia: MAC Complications: none Fluids: 200cc crystalloid Estimated Blood Loss: * No values recorded between 03/03/2015 3:15 PM and 03/03/2015 3:25 PM * Drains: None Disposition: aroused from sedation, and taken to the recovery room in a stable condition Condition: doing well without problems Attestation: Case Date: 03/03/2015 I was present and I participated during the entire procedure. (Please see the Surgical Encounter Summary for any Implant and Specimen details pertinent to this patient.) * Op Note - Kingsley Perry MD - 03/03/2015 2:51 PM EST [facility] Operative Note Patient Name: Whitney Fam : [id number] MR#: [id number] Case Date: 03/03/2015 Surgeon: Surgeon(s) and Role: * Kingsley Perry MD - Primary * Travis Martinez MD PREOPERATIVE DIAGNOSIS: Left carpal tunnel syndrome. POSTOPERATIVE DIAGNOSIS: Left carpal tunnel syndrome. PROCEDURE PERFORMED: Endoscopic left carpal tunnel decompression. ANESTHESIA: Local with sedation. OPERATIVE INDICATION: The patient is a 54 y.o.-year-old Female with EMG proven left carpal syndrome. It was refractory to conservative treatment. She has responded very well to her right carpal tunnel release. She was brought to the operating room for endoscopic left carpal tunnel decompression. SUMMARY OF PROCEDURE: After 2 gm of intravenous cefazolin was administered, the patient's left upper extremity was prepped with Hibiclens scrub and ChloraPrep. Her left arm was draped in a sterile fashion. A preoperative time-out was performed as per [facility] protocol. 7 mL of 1% lidocaine with epinephrine buffered with sodium bicarbonate was injected over the median nerve at the level of the wrist as well as over the palmar side of the patient's left hand. Her left arm was then exsanguinated with an Esmarch [...] released with a total tourniquet time of 8 minutes. All digits rapidly became pink and warm with brisk capillary refill. She was then transferred to the recovery room in stable condition. Estimated blood loss was minimal. IV fluid replacement was 200 mL of crystalloid. She tolerated the procedure well without apparent complications. Attestation: Case Date: 03/03/2015 I was present and I participated during the entire procedure. KINGSLEY PERRY MD 03/03/2015 documented in this encounter Plan of Treatment Upcoming Encounters Date Type Department Care Team (Late st Contact Info) Description 04/13/2024 2:00 PM EST Office Visit Dermatology at [place] [address] [facility] [place] [address] Wan Wellington MD [address] [facility] [place] [address] documented as of this encounter Procedures Procedure Name Priority Date/Time Associated Diagnosis Comments ENDOSCOPY WRIST W/ RELEASE TRANSVERSE CARPAL LIGAMENT (WRVU 6.39) 03/03/2015 3:04 PM EST Bilateral carpal tunnel syndrome documented in this encounter Visit Diagnoses Diagnosis s/p L endoscopic carpal tunnel release Carpal tunnel syndrome Bilateral carpal tunnel syndrome Carpal tunnel syndrome documented in this encounter Administered Medications Inactive Administered Medications - up to 3 most recent administrations Medication Order MAR Action Action Date Dose Rate Site acetaminophen (TYLENOL) tablet 1,000 mg 1,000 mg, Oral, 30 MIN PRE-OP, 1 dose, On Fri03/03/15 at 1500, Maximum dose of acetaminophen is 4000 mg from all sources in 24 hours., Routine Given 03/03/2015 2:47 PM EST 1,000 mg gabapentin (NEURONTIN) 300 mg capsule 1 dose, Starting on Fri03/03/15 at 1452, Until Fri03/03/15 at 1452, CHE FRIEND: chsae override gabapentin (NEURONTIN) capsule 300 mg 300 mg, Oral, 30 MIN PRE-OP, 1 dose, On 03/04/15 at 0000, Day of Surgery (Day of Procedure), Routine Given 03/03/2015 2:52 PM EST 300 mg lactated ringers infusion 1,000 mL 1,000 mL, at 100 mL/hr, Intravenous, CONTINUOUS, Starting on Fri03/03/15 at 1445, Until Fri03/03/15 at 1618, Day of Surgery (Day of Procedure) New Bag 03/03/2015 2:47 PM EST 1,000 mLs 100 mL/hr lidocaine-EPINEPHrine 1 %-1:100,000 injection ONCE PRN, Starting on Fri03/03/15 at 1514, Until Fri03/03/15 at 1618, Intra-Operative (Intra-Procedure), Routine Given 03/03/2015 3:14 PM EST 7 mLs 19- Surgical Site sodium bicarbonate 8.4 % (1 mEq/mL) injection ONCE PRN, Starting on Fri03/03/15 at 1515, Until Fri03/03/15 at 1618, Intra-Operative (Intra-Procedure), Routine Given 03/03/2015 3:15 PM EST 2 mEq 19- Surgical Site documented in this encounter Active and Recently Administered Medications Times are shown in EST. Scheduled Medication Order 03/01/2015 03/02/2015 03/03/2015 acetaminophen (TYLENOL) tablet 1,000 mg (COMPLETED) 1,000 mg, Oral, 30 MIN PRE-OP, 1 dose, On Fri03/03/15 at 1500, Maximum dose of acetaminophen is 4000 mg from all sources in 24 hours., Routine 1447 (Given - Provid er: Che Sagastume, MONE) gabapentin (NEURONTIN) capsule 300 mg (COMPLETED) 300 mg, Oral, 30 MIN PRE-OP, 1 dose, On 03/04/15 at 0000, Day of Surgery (Day of Procedure), Routine 1452 (Given - Provid er: Che Sagastume RN) Continuous Medication Order 03/01/2015 03/02/2015 03/03/2015 lactated ringers infusion 1,000 mL (CANCELED) 1,000 mL, at 100 mL/hr, Intravenous, CONTINUOUS, Starting on Fri03/03/15 at 1445, Until Fri03/03/15 at 1618, Day of Surgery (Day of Procedure) 1447 (New Bag - Prov ider: Che Sagastume RN)1503 (Canceled Entry - Provider: Jane Dunne CRNA)1530 (Anesthesia Volume Adjustment - Provider: Jane Dunne CRNA) PRN Medication Order 03/01/2015 03/02/2015 03/03/2015 lidocaine-EPINEPHrine 1 %-1:100,000 injection (CANCELED) ONCE PRN, Starting on Fri03/03/15 at 1514, Until Fri03/03/15 at 1618, Intra-Operative (Intra-Procedure), Routine 1514 (Given - Provid er: Kingsley Perry MD - Comment: buffered with 2ml (2mEq)8.4% sodium bicarbonate) sodium bicarbonate 8.4 % (1 mEq/mL) injection (CANCELED) ONCE PRN, Starting on Fri03/03/15 at 1515, Until Fri03/03/15 at 1618, Intra-Operative (Intra-Procedure), Routine 1515 (Given - Provid er: Kingsley Perry MD - Comment: mixed with lidocaine 1% with epi [id number]) documented in this encounter Care Teams Building Supplies Salesperson Retail Relationship Specialty Start Date End Date Brigitte Almanza MD [address] [place] [address] PCP - General 08/19/14 12/29/18 documented as of this encounter
--- OUTSIDE RECORDS SUMMARY | 2023-10-08 01:17 | XMS_ITS | Encounter Summary ---
Author Organization [facility] Address [facility] [place] [address] Care Team Providers Care Bushel Girl Name Role Phone Jonatan Bernice RICK Primary Care Provider [phone] Encounter Details Date Type Department Care Team (Late st Contact Info) Description 05/17/2008 Orders Only Dermatology at [address] [phone] Wan Wellington MD [address] [place] [address], [facility] [place] [address] Social History Tobacco Use Types Packs/Day Years Used Date Smoking Tobacco: Never Assessed Sex and Gender Information Value Date Recorded Sex Assigned at Not on file Gender Identity Not on file Sexual Orientation Not on file documented as of this encounter Plan of Treatment Upcoming Encounters Date Type Department Care Team (Late st Contact Info) Description 04/13/2024 2:00 PM EST Office Visit Dermatology at [address] [phone] Wan Wellington MD [address] [facility], [facility] [place] [address] documented as of this encounter Procedures Procedure Name Priority Date/Time Associated Diagnosis Comments SURGICAL PATHOLOGY REPORT Routine 05/17/2008 6:32 PM EDT documented in this encounter Results * Surgical Pathology Report (05/17/2008 6:32 PM EDT) Surgical Pathology Report [id number] ? Location: [facility] The signing pathologist has (i) examined the relevant preparation(s) for the specimen(s) and (ii) rendered or confirmed the diagnosis(es). . ?Pathology Surgical Pathology Final Report Clinical Information Specimen Submitted: A - (R) lower eyelid/lateral, Shave (1): Clinical History: Pearly papule x 2 years TX'ed with shave C&D Clinical Diagnosis: BCCA Report to: Wan Wellington MD, III [facility] [place], [place] ??[address] Gross Description Labeled/Fixativ e: ? Labeled with the patient's name and medical record ?number, formalin. Qty/Size/Weight : ?Single shave, 0.4 cm, with a granular, briceño-yu skin ?surface. Sections/Proces sing: ??Bisected. ??(T1) ??aje/PPS Microscopic Description Slides reviewed, microscopic description not recorded. Diagnosis Skin, (R) lower eyelid/lateral, Shave: ?Basal cell carcinoma. CR-0 05/19/08 JBB 05/19/08 Verified by: ? Drew HOLBROOK, Hayden Ag ?Dermatopathol ogist ?(Electronic Signature) The attending pathologist whose signature appears on this report has reviewed all diagnostic slides and has edited the gross and/or microscopic portion of the report in rendering the final pathologic diagnosis. [facility] 05/17/2008 6:32 PM EDT Wan Wellington MD PATHOLOGY/CYTOLOGY O RDERABLES [facility] documented in this encounter Visit Diagnoses Not on filedocumented in this encounter Care Teams Bushel Girl Relationship Specialty Start Date End Date Bernice Cheung APRN [address] [place] [address] PCP - General Family Medicine 04/01/22 documented as of this encounter
--- OUTSIDE RECORDS SUMMARY | 2023-10-08 01:17 | XMS_ITS | Encounter Summary ---
Author Organization [facility] [place] [place] [address] Care Team Providers Care Filter Press Tender Name Role Phone KeoRomeo DDS Primary Care Provider [phone] Reason for Visit * Reason Comments Skin Check Encounter Details Date Type Department Care Team (Late st Contact Info) Description 03/12/2022 4:15 PM EST Office Visit Dermatology at [address] [address] Wan Wellington MD [address] [facility] [address] History of basal cell carcinoma Social History Tobacco Use Types Packs/Day Years Used Date Smoking Tobacco: Never Smokeless Tobacco: Never Alcohol Use Standard Drinks/Week Comments No 0 (1 standard drink = 0.6 oz pur e alcohol) Sex and Gender Information Value Date Recorded Sex Assigned at Not on file Gender Identity Not on file Sexual Orientation Not on file documented as of this encounter Progress Notes * Wan Wellington MD - 03/12/2022 4:15 PM EST Problem: 1. Skin checkup. ?? 2. History of BCCA right lower lateral eyelid, April 2008 Whitney follows up and is now 61. She notes new lesions of concern. I last saw her in November 2014. Physical examination reveals a pleasant 61-year-old woman who has a fibrous papule on the left mid nasal sidewall. She has a hyperkeratotic papule 6 mm in diameter on the left lateral calf concerningfor SCC versus BCCA. She is darkly tanned after just returning 2 days ago from a trip to [facility]. She has benign examination of the face and neck the chest the back hands and forearms thighs and calves otherwise. Assessment plan: Rule out SCCA left lateral calf 1. After obtaining consent site was anesthetized and with shave biopsy and light C&D 2. If this is positive she has 2 or 3 additional sites that should also be similarly treated at other sites on her calves, albeit smaller. 3. We will notify patient of biopsy results in 1 week. Wound care instructions and supplies given. 4. After curettage the site measured 7 mm in diameter. Tinea versicolor 1. Currently she has no areas of hypopigmentation despite her dark briceño. 2. Tinea versicolor appears to be in remission. Angiofibroma left left nasal sidewall 1. Patient reassured 2. No treatment necessary CC: Romeo Crowley DDS documented in this encounter Plan of Treatment Upcoming Encounters Date Type Department Care Team (Late st Contact Info) Description 04/13/2024 2:00 PM EST Office Visit Dermatology at [place] [address] [place] [address] Wan Wellington MD [address] [facility] [place] [address] documented as of this encounter Visit Diagnoses Diagnosis History of basal cell carcinoma Personal history of other malignant neoplasm of skin documented in this encounter Care Teams Filter Press Tender Relationship Specialty Start Date End Date Romeo Crowley DDS [address] [place] [address] PCP - General Dental Doughnut Machine Operator 12/30/18 3 documented as of this encounter
--- OUTSIDE RECORDS SUMMARY | 2023-10-08 01:17 | XMS_ITS | Encounter Summary ---
Author Organization [facility] Address [address] [place] [address] Care Team Providers Care Air Vice Marshal Name Role Phone Unavailable Primary Care Provider Unavailabl e Encounter Details Date Type Department Care Team (Late st Contact Info) Description 11/08/2003 Results Only [facility] Family Medicine - [address] [address] Brigitte Almanza MD [address] [place] [phone] Social History Tobacco Use Types Packs/Day Years Used Date Smoking Tobacco: Never Assessed Sex and Gender Information Value Date Recorded Sex Assigned at Not on file Gender Identity Not on file Sexual Orientation Not on file documented as of this encounter Plan of Treatment Not on file documented as of this encounter Procedures Procedure Name Priority Date/Time Associated Diagnosis Comments CYTOPATHOLOGY Routine 11/08/2003 0:00 EDT documented in this encounter Results * CYTOPATHOLOGY (11/08/2003 0:00 EDT) Pathology Report: CYTOPATHOLOGY REPORT Reports generated via electronic interface contain original data; however they are lacking the format of the original report. Caution should be taken when reading/interpreti ng unformatted reports. Name: ? RAY FAM ? Accession #: ? [id number] : ? 1960 (Age: 43) ??F ?Collect Date: ? 11/08/2003 Location: ? [facility] ? Receive Date: ? 11/10/2003 Provider: ?BRIGITTE ALMANZA MD Copy to: ? Specimen/Source: ?ThinPrep Pap Test, Endocervix Last Menstrual Period: ? 11/03/2003 Hormonal/Contracep tive Status: ? Intrauterine device Other: ? HPVA - HPV testing requested if ASC-US on the current ThinPrep Pap test. ? SPECIMEN ADEQUACY ? Satisfactory for Evaluation - transformation zone component present GENERAL CATEGORIZATION ? Negative for Intraepithelial Lesion or Malignancy ? Document reviewed and electronically signed by: ? LESLI Kramer(ASCP) ? Report Date: ??11/16/2003 08:48 End of Report SHARRON MURPHY 11/08/2003 11/10/2003 Brigitte Almanza MD PATHOLOGY ORDERABLES SHARRON MURPHY [address] [place] [address] documented in this encounter Visit Diagnoses Not on filedocumented in this encounter
--- OUTSIDE RECORDS SUMMARY | 2023-10-08 01:17 | XMS_ITS | Encounter Summary ---
Author Organization [facility] [place] [address] Care Team Providers Care Food Demonstrator Name Role Phone Bernice Cheung APRN Primary Care Provider [phone] Encounter Details Date Type Department Care Team (Latest Contact Info) Description 04/01/2023 10:14 PM EST - 04/01/2023 11:59 PM EST Hospital [place] [phone] Discharge Disposition: Home Social History Tobacco Use Types Packs/Day Years Used Date Smoking Tobacco: Never Smokeless Tobacco: Never Alcohol Use Standard Drinks/Week Comments No 0 (1 standard drink = 0.6 oz pur e alcohol) Sex and Gender Information Value Date Recorded Sex Assigned at Not on file Gender Identity Not on file Sexual Orientation Not on file documented as of this encounter Medications at Time of Discharge Medication Sig Dispensed Refills Start Date End Date selenium sulfide 2.5 % Lotion Apply topically on a daily basis applying to the chest and torso for 1 week, rinse off after 3 minutes, then use once weekly thereafter 120 mL 5 04/01/2023 fluconazole (Diflucan) 150 mg tablet Take one tablet now , then repeat again in 7 days. 2 tablet 04/01/2023 estradioL (Estrace) 1 mg Tablet Take 1 mg by mouth daily. 12/17/2021 proGESTerone (Prometrium) 100 mg Capsule Take 100 mg by mouth daily. 12/18/2021 documented as of this encounter Plan of Treatment Upcoming Encounters Date Type Department Care Team (Late st Contact Info) Description 04/13/2024 2:00 PM EST Office Visit Dermatology at [address] [phone] Wan Wellington MD [address], [place] [address] documented as of this encounter Procedures Procedure Name Priority Date/Time Associated Diagnosis Comments SURGICAL PATHOLOGY REPORT Routine 04/01/2023 4:10 PM EST documented in this encounter Results * (ABNORMAL) Surgical Pathology Report (04/01/2023 4:10 PM EST) Final Diagnosis [id number] ? Location: [facility] The signing pathologist has (i) examined the relevant preparation(s) for the specimen(s) and (ii) rendered or confirmed the diagnosis(es). . ?Surgical Pathology DIAGNOSIS Left posterior ankle, skin shave biopsy ED&C: - ??Basal cell carcinoma, superficial, nodular and focally infiltrating patterns, ??present at the peripheral and deep specimen edges Electronically signed by: ?Beata HOLBROOK, Isa Verified: ??04/08/2023 12:22 ??Dermatopatholo gist Performed at: ??-[facility] Dept. of Pathology, [place] [address] Strap Machine Operator: Nacho Tamayo MD, AP, ??CLIA Certificate: [id number] DISCUSSION THIS RESULT REQUIRES PHYSICIAN/A.P.P. FOLLOW UP SPECIMEN(S) SUBMITTED A - L posterior ankle, ED&C Referring Identifier: ?(not provided) CLINICAL INFORMATION Painful scaly patch. ??Fam's/SBCCA, treated with shave C and D SPECIMEN PROCESSING A - Labeled/Fixative : Patient demographics, formalin. Quantity/Size: ??Single, 1.0 x 0.9 x 0.1 cm. Tissue Description: Irregular shave of mottled, briceño-yu skin. Sections/Process ing: Inked, serially sectioned and entirely submitted in 1 cassette labeled A1. ??pps(A) 04/08/2023 12:22 PM EST [facility] SPECIMEN FROM SKIN / Unknown 04/01/2023 4:10 PM EST 04/01/2023 4:10 PM EST Wan Wellington MD PATHOLOGY/CYTOLOGY O SIMBA Performing Organization Address City/State/[facility] Co de Phone Number [facility] [place] [phone] [facility] [place] [address] documented in this encounter Visit Diagnoses Not on filedocumented in this encounter Care Teams Food Demonstrator Relationship Specialty Start Date End Date Bernice Cheung APRN [address] [place] [address] PCP - General Family Medicine 04/01/22 documented as of this encounter
--- OUTSIDE RECORDS SUMMARY | 2023-10-08 01:17 | XMS_ITS | Encounter Summary ---
Author Organization [facility] Address [address] [place] [address] Care Team Providers Care Mid Level Java Developer Name Role Phone Unavailable Primary Care Provider Unavailabl e Encounter Details Date Type Department Care Team (Late st Contact Info) Description 01/11/2009 Orders Only [facility] Family Medicine [address] [address] Brigitte Almanza MD [address] [place] [phone] Social History Tobacco Use Types Packs/Day Years Used Date Smoking Tobacco: Never Assessed Sex and Gender Information Value Date Recorded Sex Assigned at Not on file Gender Identity Not on file Sexual Orientation Not on file documented as of this encounter Plan of Treatment Not on file documented as of this encounter Procedures Procedure Name Priority Date/Time Associated Diagnosis Comments CYTOPATHOLOGY Routine 01/11/2009 0:00 EST documented in this encounter Results * CYTOPATHOLOGY (01/11/2009 0:00 EST) Pathology Report: CYTOPATHOLOGY REPORT ? Reports generated via electronic interface contain original data; ? however they are lacking the format of the original report. ? Caution should be taken when reading/interpreti ng unformatted reports. ? Name: ? KATY, RAY ? Accession #: ? [id number] ? : ? 1960 (Age: 48) ??F ?Collect Date: ? 01/11/2009 ? Location: ? [facility] ? Receive Date: ? 01/12/2009 ? Provider: ?BRIGITTE FINE MD ? Copy to: ? Specimen/Source: ?Pap Test, Endocervix, ThinPrep Imaging System with ? manual evaluation ? Last Menstrual Period: ? Other: ? HPVA - HPV testing requested if ASC-US on the current ThinPrep Pap test. ? SPECIMEN ADEQUACY ? Satisfactory for Evaluation ? - transformation zone component present ? GENERAL CATEGORIZATION ? Negative for Intraepithelial Lesion or Malignancy ? Document reviewed and electronically signed by: ? Fe Ahsan, CT(ASCP) ? Report Date: ??01/18/2009 12:32 ? End of Report ? SHARRON MURPHY 01/11/2009 01/12/2009 Brigitte Almanza MD PATHOLOGY ORDERABLES [facility] [address] [place] [address] documented in this encounter Visit Diagnoses Not on filedocumented in this encounter
--- OUTSIDE RECORDS SUMMARY | 2023-10-08 01:17 | XMS_ITS | Encounter Summary ---
Author Organization [facility] [place] [address] Care Team Providers Care Senior Core Java Developer Name Role Phone Brigitte Almanza MD Primary Care Provider [phone] Reason for Visit * Auth/Cert Specialty Diagnoses / Procedures Referred By Wan t Referred To Contact Diagnoses Left carpal tunnel syndrome Procedures PRO WRIST ARTHROSCOP, RELEASE XVERS LIG ENDOSCOPY WRIST W/ RELEASE TRANSVERSE CARPAL LIGAMENT Referral ID Status Reason Start Date Expiration Date Visits Re quested Visits Authorized [id number] 1 1 Encounter Details Date Type Department Care Team (Late st Contact Info) Description 03/03/2015 3:05 PM EST Anesthesia Event [facility] [place] [address] Neyda Stringer MD [facility] [address] [place] [address] Alin Soto MD [facility] [place] [address] Anesthesia Record Procedure Summary Procedure Name Responsible Anesthesiologist Anesthesia Start Time Anesthesia Stop Time ENDOSCOPY WRIST W/ RELEASE TRANSVERSE CARPAL LIGAMENT (WRVU 6.39) (Left: Wrist) Neyda Stringer MD 03/03/15 1505 03/03/15 1533 Events Date Time Event Comment 03/03/2015 1427 1505 Start 1507 AN Verify 1507 An Start Data 1507 Anesthesia Ready 1524 Quick Note Tourniquet time 8 minutes 1527 an stop data 1533 Recovery or ICU Handoff Natalie ent care was transferred to the destination unit staff after review of the patient's medical history, current anesthetic/surgical status and plan, according to the Provider Handoff Checklist. 1533 Stop Meds Name Total Midazolam 2 mg fentaNYL 75 mcg Propofol 90 mg Propofol INF 28.98 mg Ketorolac 30 mg acetaminophen (TYLENOL) tablet 1,000 mg 0 mg ceFAZolin 2 g Dexmedetomidine 12 mcg Ondansetron 4 mg lactated ringers infusion 1,000 mL 200 m L * Agents Name O2 Sevoflurane (et) * Blood No blood administrations on file. Lines, Drains, and Airways Type Details Placement Removal Incision 02/07/15; wrist; 10/22/21 (LDA cleanup utility RA#[id number]); 1715 (LDA cleanup utility RA#[id number]) 02/07/15 0000 by Vida Cavazos 10/22/21 1715 by Coby Read Incision 03/03/15; wrist; 03/03/15 (Healed unknown date and time); 1617 03/03/15 0000 by Daly Che RN 03/03/15 1617 by Valeria Subramanian, MONE (RETIRED) Peripheral IV Line - Single Lumen 03/03/15; 1446; metacarpal vein right (top of hand); [id number] catheter system; 22 gauge, 1 in length; letty DOMINGUEZ; intradermal injection, tolerated well, appears comfortable; 0; 03/03/15; 1607 03/03/15 1446 by Che Sagastume RN 03/03/15 1607 by Valeria Subramanian, RN documented in this encounter Social History Tobacco Use Types Packs/Day Years Used Date Smoking Tobacco: Former Smokeless Tobacco: Never Alcohol Use Standard Drinks/Week Comments No 0 (1 standard drink = 0.6 oz pur e alcohol) Sex and Gender Information Value Date Recorded Sex Assigned at Not on file Gender Identity Not on file Sexual Orientation Not on file documented as of this encounter OR Notes * Anesthesia Postprocedure Evaluation - Neyda Stringer MD - 03/03/2015 3:37 PM EST [facility] Department of Anesthesiology Post-procedure Note Patient: Whitney Fam Procedure Summary Date Anesthesia Start Anesthesia Stop Room / Location 03/03/15 1505 1533 [facility] OR [address] [place] [address] [facility] Procedure Diagnosis Surgeon Responsible Provider ENDOSCOPY WRIST W/ RELEASE TRANSVERSE CARPAL LIGAMENT (Left Wrist) Bilateral carpal tunnel syndromeDominic Perry MD Welch, Marnie B, MD (Left carpal tunnel syndrome) Last (1hr) Vitals: BP 121/48 mmHg (03/03/15 1530) Temp 37.1 ??C (98.8 ??F) (03/03/15 1530) Pulse 73 (03/03/15 1530) Resp 18 (03/03/15 1530) SpO2 95 % (03/03/15 1530) Patient Location: PACU/SD Level of Consciousness: Awake and Alert Pain Management: Satisfactory Analgesia PONV: None Cardiovascular Status: At Baseline and Hemodynamically Stable Respiratory Status: At Baseline and Room Air Postoperative Fluid Status: Intravascular EUvolemia Possible Anesthetic Complications: NONE apparent at time of evaluation Final Primary Anesthesia Type: MAC (The anesthetic type performed was the same as planned.) Comments: Pt very happy with care NEYDA STRINGER MD * Anesthesia Preprocedure Evaluation - Neyda Stringer MD - 03/03/2015 11:11 AM EST Pre-Anesthesia Evaluation for: Whitney Fam a 54 y.o. female. Procedure(s): ENDOSCOPY WRIST W/ RELEASE TRANSVERSE CARPAL LIGAMENT Patient Active Problem List Diagnosis ??? Chronic low back pain ??? Chronic neck pain ??? Tinea versicolor ??? History of basal cell carcinoma ??? Nevus ??? Carpal tunnel syndrome s/p R ECTR 02/07/15 (Vicky) ??? Travel foreign Past Medical History Diagnosis Date ??? Scoliosis Past Surgical History Procedure Laterality Date ??? Breast lumpectomy ??? Pro wrist arthroscop, release xvers lig Right 02/07/2015 ENDOSCOPY WRIST W/ RELEASE TRANSVERSE CARPAL LIGAMENT performed by Dominic Perry MD at [facility] History Substance Use Topics ??? Smoking status: Former Smoker ??? Smokeless tobacco: Never Used ??? Alcohol Use: No History Drug Use No No Known Allergies Medications: MAR and/or home medications have been reviewed. Physical Exam: There were no vitals filed for this visit. There is no height or weight on file to calculate BMI. Airway Assessment: Mallampati: II TM distance: >3 FB Neck ROM: full Cardiovascular Assessment: Rhythm: regular Pulmonary Assessment: breath sounds clear to auscultation Dental Assessment: Misc Assessment: IV access: Peripheral line Anesthesia Plan: ASA 2 MAC, with a(n) intravenous induction 54 y/o here for endoscopy wrist LEFT wrist Healthy except has neck and back pain PSH: CTR dec, no issues Today, no changes in her health, no GERD, NPO, no URIs, good fx capacity Plan : repeat plan, LMAC The patient was informed of the risks of anesthesia, and consent was obtained. These risks include,but are not limited to, PONV, pain, intraop awareness (expected), conversion to general anesthesia,and other rare but serious complications such as major organ damage, allergies, blood transfusions,and dental/lip trauma. Region - Other Informed Consent: Anesthetic plan and risks discussed with patient. Plan discussed with CASE FINISHING MACHINE ADJUSTER. PAT Staff Note documented in this encounter Plan of Treatment Upcoming Encounters Date Type Department Care Team (Late st Contact Info) Description 04/13/2024 2:00 PM EST Office Visit Dermatology at [place] [address] [facility] [place] [address] Wan Wellington MD [address] [facility], [place] [address] documented as of this encounter Visit Diagnoses Not on filedocumented in this encounter Administered Medications Inactive Administered Medications - up to 3 most recent administrations Medication Order MAR Action Action Date Dose Rate Site ceFAZolin (ANCEF) 1g in dextrose 5% 50mL PRN, Starting on Fri03/03/15 at 1507, Until Fri03/03/15 at 1533, Administer over 30 Minutes, Anesthesia Intra-op Given 03/03/2015 3:07 PM EST 2 g dexmedetomidine (PRECEDEX) injection PRN, Starting on Fri03/03/15 at 1507, Until Fri03/03/15 at 1533, Anesthesia Intra-op, Routine Given 03/03/2015 3:20 PM EST 4 mcg Given 03/03/2015 3:16 PM EST 4 mcg Given 03/03/2015 3:07 PM EST 4 mcg fentaNYL 50 mcg/mL multi-dose injection PRN, Starting on Fri03/03/15 at 1507, Until Fri03/03/15 at 1533, Pain, Anesthesia Intra-op, Routine Given 03/03/2015 3:14 PM EST 25 mcg Given 03/03/2015 3:10 PM EST 25 mcg Given 03/03/2015 3:07 PM EST 25 mcg ketorolac (TORADOL) injection PRN, Starting on Fri03/03/15 at 1510, Until Fri03/03/15 at 1533, Pain, Anesthesia Intra-op, Routine Given 03/03/2015 3:10 PM EST 30 mg midazolam (PF) (VERSED) 1 mg/mL multi-dose injection PRN, Starting on Fri03/03/15 at 1507, Until Fri03/03/15 at 1533, Sleep, Anesthesia Intra-op, Routine Given 03/03/2015 3:07 PM EST 2 mg ondansetron (ZOFRAN) injection PRN, Starting on Fri03/03/15 at 1510, Until Fri03/03/15 at 1533, Nausea, Anesthesia Intra-op, Routine Given 03/03/2015 3:10 PM EST 4 mg propofol (DIPRIVAN) 10 mg/mL bolus injection (Anesthesia) PRN, Starting on Fri03/03/15 at 1510, Until Fri03/03/15 at 1533, Anesthesia Intra-op Given 03/03/2015 3:18 PM EST 20 mg Given 03/03/2015 3:13 PM EST 20 mg Given 03/03/2015 3:12 PM EST 30 mg propofol (DIPRIVAN) infusion CONTINUOUS PRN, Starting on Fri03/03/15 at 1512, Until Fri03/03/15 at 1533, Anesthesia Intra-op, Routine New Bag 03/03/2015 3:12 PM EST 150 mcg/kg/min 58 mL/hr documented in this encounter Care Teams Senior Core Java Developer Relationship Specialty Start Date End Date Brigitte Almanza MD [address] [place] [address] PCP - General 08/19/14 12/29/18 documented as of this encounter
--- OUTSIDE RECORDS SUMMARY | 2023-10-08 01:17 | XMS_ITS | Encounter Summary ---
Author Organization [facility] Address [facility] [place] [address] Care Team Providers Care Pulverizer Feeder Name Role Phone Brigitte Almanza MD Primary Care Provider [phone] Encounter Details Date Type Department Care Team (Late Contact Info) Description 03/04/2015 Telephone [place] [phone] Cb Iqbal MD [facility] [place] [address] Social History Tobacco Use Types Packs/Day Years Used Date Smoking Tobacco: Former Smokeless Tobacco: Never Alcohol Use Standard Drinks/Week Comments No 0 (1 standard drink = 0.6 oz pur e alcohol) Sex and Gender Information Value Date Recorded Sex Assigned at Not on file Gender Identity Not on file Sexual Orientation Not on file documented as of this encounter Miscellaneous Notes * Telephone Encounter - Cb Iqbal - 03/04/2015 12:42 PM EST Patient called and had lots of nausea after taking oxycodone. She had carpal tunnel surgery yesterday. I stated that I could not call in a different narcotic, as a prescription is needed. I reviewed taking tylenol and ibuprofen and she felt that this would be adequate. No other concerning symptoms. documented in this encounter Plan of Treatment Upcoming Encounters Date Type Department Care Team (Late Contact Info) Description 04/13/2024 2:00 PM EST Office Visit Dermatology at [place] [address] [place] [address] Wan Wellington MD [address], [place] [address] documented as of this encounter Visit Diagnoses Not on filedocumented in this encounter Care Teams Pulverizer Feeder Relationship Specialty Start Date End Date Brigitte Almanza MD [address] [place] [address] PCP - General 08/19/14 12/29/18 documented as of this encounter
--- OUTSIDE RECORDS SUMMARY | 2023-10-08 01:17 | XMS_ITS | Encounter Summary ---
Author Organization [facility] Address [address] [place] [address] Care Team Providers Care Biodiesel Engineering Manager Name Role Phone Unavailable Primary Care Provider Unavailabl e Encounter Details Date Type Department Care Team (Late st Contact Info) Description 01/09/2004 Results Only [facility] conversion [address] [place] [address] Amrik Trivedi MD [address] [place] [address] Social History Tobacco Use Types Packs/Day Years Used Date Smoking Tobacco: Never Assessed Sex and Gender Information Value Date Recorded Sex Assigned at Not on file Gender Identity Not on file Sexual Orientation Not on file documented as of this encounter Plan of Treatment Not on file documented as of this encounter Procedures Procedure Name Priority Date/Time Associated Diagnosis Comments SURGICAL PATHOLOGY Routine 01/09/2004 0:00 EST documented in this encounter Results * SURGICAL PATHOLOGY (01/09/2004 0:00 EST) Pathology Report: SURGICAL PATHOLOGY REPORT Reports generated via electronic interface contain original data; however they are lacking the format of the original report. Caution should be taken when reading/interpreti ng unformatted reports. Name: ? FAM RAY ? Accession #: ? [id number] ? : ? 1960 (Age: 43) ??F ? Collect Date: ? 01/09/2004 ? Location: ? [facility] ? Receive Date: ? 01/10/2004 ? Provider: AMRIK TRIVEDI MD Copy to: POLLO TOLEDO MD ? Final Pathologic Diagnosis: ? Colon, sigmoid, 40 cm, polyp, biopsy: 1. ?Hyperplastic polyp. 2. ?No adenomatous mucosa identified. Document reviewed and electronically signed by: CARMENZA MOODY MD Report ??Date: 01/11/2004 15:58 By the signature above, the attending physician certifies that he/she has personally conducted a gross and/or microscopic examination of the described specimens and rendered or confirmed the above diagnosis. Specimen(s) Received: ? Bx @ 40 cm sigmoid Clinical History: ? Family hx colon Ca (Mom), recurrent Ca recently, two sisters with polyp hx Gross Description: ? Received in Hollande's fixative labeled Fam and biopsy sigmoid 40 cm is an irregular 0.2 x 0.1 x 0.1 cm briceño-pink soft tissue. ??Submitted in toto in one cassette. ??(Ran Alonzo)/tmg ?? End of Report SHARRON MURPHY 01/09/2004 01/10/2004 15: 11 EST Amrik Trivedi MD PATHOLOGY ORDERABLE S [facility]ARR[facility] MURPHY [address] [place] [address] documented in this encounter Visit Diagnoses Not on filedocumented in this encounter
--- OUTSIDE RECORDS SUMMARY | 2023-10-08 01:17 | XMS_ITS | Encounter Summary ---
Author Organization [facility] Address [facility] [place] [address] Care Team Providers Care Emblem Cutter Name Role Phone Brigitte Almanza MD Primary Care Provider [phone] Reason for Visit * Reason Comments Right Wrist Pain Encounter Details Date Type Department Care Team (Late st Contact Info) Description 01/11/2015 1:50 PM EST Office [place] [address] Dominic Perry MD [facility] [place] [address] Bilateral carpal tunnel syndrome Social History Tobacco Use Types Packs/Day Years [...] Sign Reading Time Taken Comments Blood Pressure 120/77 01/11/2015 1:47 PM EST Pulse 78 01/11/2015 1:47 PM EST Temperature - - Respiratory Rate - - Oxygen Saturation - - Inhaled Oxygen Concentration - - Weight 63.5 kg (140 lb) 01/11/2015 1:47 PM EST v erbal Height 175.3 cm (5' 9) 01/11/2015 1:47 PM EST Body Mass Index 20.67 01/11/2015 1:47 PM EST documented in this encounter Progress Notes * Nahomy Beatty RN - 01/11/2015 2:50 PM EST Pre op teaching done for endoscopic carpal tunnel release. Emphasis placed on post op hand elevation with hand above heart,fingers above palm,palm above wrist and wrist above elbow. Discussed importance of flexing fingers against original dressing.Take dressing off on day 3 and fully flex and extend fingers.Place Band-Aid over suture,no ointments. Reviewed suggestions for takingpost op pain medication. Questions solicited and answered to patient satisfaction. Written material provided. Patient knows to call with any additional questions or concerns. Of note patient lives at a distance and may possibly have PCP remove stitch 10- 14 days post surgeryif weather prohibits travel here. * Dominic Perry MD - 01/11/2015 2:19 PM EST I saw Whitney Fam with Damon Bah MD. She has EMG proven bilateral carpal tunnel syndrome. Her right hand is more symptomatic than left. She has had this for a long period of time and now wishes to have this addressed. She has nocturnal dysesthesias, daytime numbness, clumsiness, symptoms while reading a book, symptoms while driving a car. She no longer uses splint. She does have some type of cervical issues also and uses a cervical traction at bedtime. She is an avid climber and hopes to return to climbing this spring and feels as though her lack of sensation in her fingertips has made rock climbing more dangerous for her. I reviewed these circumstances with her. I did tell her that carpal tunnel decompression would put the nerve in a milieu which would hopefully allow it to heal, but there is a possibility that the numbness may not improve to the extent that she is desiring. I also expressed my concern about potential adjunct trainer weakness postop, which may affect her ability to rock climb, I told her that with time her strength will probably improve. She is aware this likely will be done endoscopically, although an open procedure may need to be done. She is aware the risks of carpal tunnel decompression include but are not limited to infection, neurovascular or tendon injury, incomplete or no relief of neurogenic symptoms, pillar pain, adjunct trainer weakness, and recurrence of carpal tunnel syndrome. She wishes to proceed with her right hand followed by her left hand perhaps in February. We will schedule this to be done as per her request. documented in this encounter Plan of Treatment Upcoming Encounters Date Type Department Care Team (Late st Contact Info) Description 04/13/2024 2:00 PM EST Office Visit Dermatology at [place] [address] [facility] [place] [address] Wan Wellington MD [address] [place] [address] documented as of this encounter Visit Diagnoses Diagnosis Bilateral carpal tunnel syndrome Carpal tunnel syndrome documented in this encounter Care Teams Emblem Cutter Relationship Specialty Start Date End Date Brigitte Almanza MD [address] [place] [address] PCP - General 08/19/14 12/29/18 documented as of this encounter
--- OUTSIDE RECORDS SUMMARY | 2023-10-08 01:17 | XMS_ITS | Encounter Summary ---
Author Organization Formerly [facility], 1928–1983 Address [facility] [place] [address] Care Team Providers Care Continuity Coordinator Name Role Phone Jonatan Bernice RICK Primary Care Provider [phone] Encounter Details Date Type Department Care Team (Late Contact Info) Description 04/08/2023 Telephone Dermatology at [address] [address] Alla Guillen RN Social History Tobacco Use Types Packs/Day Years [...] encounter Miscellaneous Notes * Telephone Encounter - Alla Guillen RN - 04/08/2023 5:25 PM EST Patient called and informed of her pathology results. Patient had a shave ED&C biopsy left posterior ankle on 04/01/2023. Diagnosis: Basal cell carcinoma. Per Dr. Wellington's recommendation no further treatment is needed and patient to return to the clinic in one year for repeat skin check. Patient has a follow up appointment on 04/13/2024. Patient informed and stated that she understood. Patient reminded of her follow up appointment on 04/13/2024. documented in this encounter Plan of Treatment Upcoming Encounters Date Type Department Care Team (Late st Contact Info) Description 04/13/2024 2:00 PM EST Office Visit Dermatology at [place] [address] [place] [address] Wan Wellington MD [address], [place] [address] documented as of this encounter Visit Diagnoses Not on filedocumented in this encounter Care Teams Continuity Coordinator Relationship Specialty Start Date End Date Bernice Cheung APRN [address] [place] [address] PCP - General Family Medicine 04/01/22 documented as of this encounter
--- OUTSIDE RECORDS SUMMARY | 2023-10-08 01:17 | XMS_ITS | Clinical Summary ---
Author Organization [facility] Address [facility] [place] [address] Care Team Providers Care Merchant Patroller Name Role Phone Bernice Cheung APRN Primary Care Provider [phone] Allergies No known active allergies Medications Medication Sig Dispensed Refills Start Date End Date Status estradioL (Estrace) 1 mg Tablet Take 1 mg by mouth daily. 12/17/2021 Active proGESTerone (Prometrium) 100 mg Capsule Take 100 mg by mouth daily. 12/18/2021 Active selenium sulfide 2.5 % Lotion Apply topically on a daily basis applying to the chest and torso for 1 week, rinse off after 3 minutes, then use once weekly thereafter 120 mL 5 04/01/2023 Active fluconazole (Diflucan) 150 mg tablet Take one tablet now , then repeat again in 7 days. 2 tablet 04/01/2023 Active Active Problems Problem Noted Date Diagnosed Date s/p L endoscopic carpal tunnel release 6 Chronic low back pain 01/17/2015 Chronic neck pain 01/17/2015 Tinea versicolor 12/20/2014 History of basal cell carcinoma 12/20/2014 Nevus 12/20/2014 Carpal tunnel syndrome s/p R ECTR 02/07/15 (Warh old) 12/13/2014 Travel foreign 03/06/2012 Immunizations Name Administration Dates Next Due Influenza Trivalent w/Preservative 03/03/2012 Meningococcal Conjugate 03/03/2012 Tdap 12/06/2011 Yellow Fever Vaccine 03/03/2012 Family History Medical History Relation Comments Cancer Mother Relation Status Comments Mother Social History Tobacco Use Types Packs/Day Years Used Date Smoking Tobacco: Never Smokeless Tobacco: Never Alcohol Use Standard Drinks/Week Comments No 0 (1 standard drink = 0.6 oz pur e alcohol) Sex and Gender Information Value Date Recorded Sex Assigned at Not on file Gender Identity Not on file Sexual Orientation Not on file Last Filed Vital Signs Vital Sign Reading Time Taken Comments Blood Pressure 110/72 03/16/2015 1:48 PM EST Pulse 76 03/16/2015 1:48 PM EST Temperature 37.1 ??C (98.8 ??F) 03/03/2015 3:30 PM ES T Respiratory Rate 16 03/03/2015 4:00 PM EST Oxygen Saturation 100% 03/03/2015 4:00 PM EST Inhaled Oxygen Concentration - - Weight 63 kg (139 lb) 03/16/2015 1:48 PM EST kevin bal Height 175.3 cm (5' 9) 03/16/2015 1:48 PM EST v erbal Body Mass Index 20.53 03/16/2015 1:48 PM EST Plan of Treatment Upcoming Encounters Date Type Department Care Team (Late st Contact Info) Description 04/13/2024 2:00 PM EST Office Visit Dermatology at [place] [address] [place] [phone] Wan Wellington MD [address], [place] [address] Health Maintenance Due Date Last Done Comments CT Colonography 1961 Colonoscopy 1961 Colorectal Cancer Screening 1961 FIT DNA 1961 FIT 1961 Sigmoidoscopy (10 year) with FIT yearly 1961 Sigmoidoscopy 1961 HIV screen 07/15/1979 Hepatitis C Screening 07/15/1979 HPV test 07/15/1991 PAP Smear 07/15/1991 Breast Cancer Share Decision Needed 2001 Breast Cancer screening 2001 Zoster vaccine (1 of 2) 07/15/2011 Advance Directive 2016 Tetanus vaccine 12/05/2021 12/06/2011 Covid-19 Vaccine ( season) 2022 Influenza (Flu) vaccine (1 o f 1 - Influenza standard series) 10/26/2023 03/03/2012 Tdap adult Completed 12/06/2011 Advance Directives * Full Code (Latest Code Status on File) Date Activated Date Inactivated Comments 03/03/2015 2:50 PM 03/03/2015 6:33 PM Question Answer Comments Does patient have capacity to make decision: Yes * Full Code Date Activated Date Inactivated Comments 02/07/2015 1:31 PM 02/07/2015 6:50 PM Question Answer Comments Does patient have capacity to make decision: Yes Care Teams Merchant Patroller Relationship Specialty Start Date End Date Bernice Cheung APRN [address] [place] [address] PCP - General Family Medicine 04/01/22
--- OUTSIDE RECORDS SUMMARY | 2023-10-08 01:17 | XMS_ITS | Encounter Summary ---
Author Organization [facility] [place] [address] Care Team Providers Care Driller And Broacher Name Role Phone Bernice Cheung APRN Primary Care Provider Encounter Details Date Type Department Care Team (Late st Contact Info) Description 04/01/2023 Refill Dermatology at [address] [phone] Alla Guillen RN Social History Tobacco Use [...] 2:00 PM EST Office Visit Dermatology at [address] [phone] Wan Wellington MD [address] [place] [address], [place] [address] documented as of this encounter Visit Diagnoses Not on filedocumented in this encounter Care Teams Driller And Broacher Relationship Specialty Start Date End Date Bernice Cheung APRN [address] [place] [address] PCP - General Family Medicine 04/01/22 documented as of this encounter
--- OUTSIDE RECORDS SUMMARY | 2023-10-08 01:17 | XMS_ITS | Encounter Summary ---
Author Organization [facility] Address [facility] [place] [address] Care Team Providers Care Canary Breeder Name Role Phone Brigitte Almanza MD Primary Care Provider [phone] Encounter Details Date Type Department Care Team (Late Contact Info) Description 10/19/2014 - 10/19/2014 11:59 PM EDT Hospital Encounter [place] [phone] Ananda Livingston MD [facility] [place] [address] Pain Social History Tobacco Use Types Packs/Day Years Used Date Smoking Tobacco: Never Assessed Sex and Gender Information Value Date Recorded Sex Assigned at Not on file Gender Identity Not on file Sexual Orientation Not on file documented as of this encounter Medications at Time of Discharge Medication Sig Dispensed Refills Start Date End Date cholecalciferol, Vitamin D3, 400 unit tablet Take 400 Units by mouth daily. 12/13/2014 [place]-3 Fatty Acids (FISH OIL) 500 mg Cap Take by mouth. 11/25 B-complex with vitamin C tablet Take 1 tablet by mouth daily. 12/13/2014 atovaquone-proguanil (MALARONE) 250-100 mg per tablet Take 1 tablet by mouth daily. Start 1 day prior to travel; Take daily in malaria area; continue for 7 days after return 24 tablet 0 03/03/2012 12/13/2014 documented as of this encounter Plan of Treatment Upcoming Encounters Date Type Department Care Team (Late st Contact Info) Description 04/13/2024 2:00 PM EST Office Visit Dermatology at [place] [address] [place] [address] Wan Wellington MD [address], [place] [address] documented as of this encounter Procedures Procedure Name Priority Date/Time Associated Diagnosis Comments FILM LIBRARY STORAGE ONLY DX SPINE Routine 10/19/2014 12:00 AM EDT Pain documented in this encounter Results * Film Library- Storage only DX Spine (10/19/2014 12:00 AM EDT) Narrative [facility] - 12/02/2014 10:58 AM EDT See PACS for result report. Ananda Livingston MD IMG FILM LIBRARY ORD ERABLES Performing Organization Address City/State/[facility] Co de Phone Number [place], [place] documented in this encounter Visit Diagnoses Diagnosis Pain Generalized pain documented in this encounter Care Teams Canary Breeder Relationship Specialty Start Date End Date Brigitte Almanza MD [address] [place] [address] PCP - General 08/19/14 12/29/18 documented as of this encounter
--- OUTSIDE RECORDS SUMMARY | 2023-10-08 01:17 | XMS_ITS | Encounter Summary ---
Author Organization [facility] [address] Care Team Providers Care Excel Expert Name Role Phone Brigitte Almanza MD Primary Care Provider [phone] Reason for Referral * Physical Therapy (Routine) - Closed Specialty Diagnoses / Procedures Referred By Contac t Referred To Contact Physical Therapy Diagnoses Chronic low back pain Delfino Guerrero MD [facility] [place] [address] [facility] [place] [address] Referral ID Status Reason Start Date Expiration Date V isits Requested Visits Authorized [id number] Closed Evaluate and Treat 01/17/2015 01/17/2016 6 6 Reason for Visit * Reason Comments Neck Pain numbness to arms Low Back Pain With Radicular Pain hips a nd butt Encounter Details Date Type Department Care Team (Late st Contact Info) Description 01/17/2015 8:40 AM EST Office [place] [phone] Delfino Guerrero MD [facility] [place] [address] Chronic low back pain; Chronic neck pain Social History Tobacco Use Types Packs/Day Years [...] Sign Reading Time Taken Comments Blood Pressure - - Pulse - - Temperature - - Respiratory Rate - - Oxygen Saturation - - Inhaled Oxygen Concentration - - Weight 65.8 kg (145 lb) 01/17/2015 8:28 AM EST Height 172.7 cm (5' 8) 01/17/2015 8:28 AM EST Body Mass Index 22.05 01/17/2015 8:28 AM EST documented in this encounter Progress Notes * Delfino Guerrero MD - 01/17/2015 9:27 AM EST CHIEF COMPLAINT: Chronic back and neck pain. SUBJECTIVE: She thinks she has had problems both with back pain and neck pain for many years, at least dating back to 2006 and perhaps quite a bit further back. She has had two traumas in the interim falling off a horse and falling off a ladder, but these postdate the onset of these problems. Her neck pain has a mechanical pattern of pain radiating from the back of her neck down through at times the ulnar portion of her forearm, but not into her hand. This has a very on and off pattern over the years. She does have quite severe bilateral carpal tunnel problems for which she is planning to have releases in 01/2015 and 02/2015. 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 Her lower back pain is a matter of right side lumbosacral pain, sometimes radiating down the back of her calf with numbness, but she does not have a fixed pattern of radicular pain, power or sensory loss, or bowel or bladder control problems. Over the years, she has tried chiropractic, physical therapy, massage, and acupuncture, all with limited or no benefit. She uses Aleve up to once a day on an as-needed basis with some benefit and no stomach upset. All this is occurring in the context of her not being able to do her usual work and more particularly not being able to do rock climbing and she is anticipating an intensive canoeing and rock climbing event in 05/2015. OBJECTIVE: Her affect is bright and speech is in good time and to the point. Her cervical range of motion is mildly restricted in side flexions because of right side neck pain, but at no end range including with sustained Spurling's maneuvers does she have any upper extremity symptoms. Her touch sensation is dysesthetic in the palmar distribution bilaterally, and I did not repeat Tinel's signs since she has a confirmed diagnosis of carpal tunnel syndrome on both sides. Otherwise, her strength testing and reflexes are normal, and she has no Yue sign and no ataxia with tandem walking. Her lumbar spine movement includes 20 degrees extension and 80 degrees forward flexion with evidence of low-grade biconvex thoracolumbar scoliosis with minimal rotational component. She has no complaint today at either end range, certainly no leg pain and seated straight leg raises are negative. Touch sensation, power screen, and deep tendon reflexes are all normal in the lower extremities. Her plain x-rays of the cervical spine show degenerative changes through the mid and lower disk spaces with straightening of the usual lordosis. Her lumbar spine films also show her low grade scoliosis, but with grade 1 degenerative spondylolisthesis at L4-L5 and some facet sclerotic changes along with low grade degenerative disk changes. ASSESSMENT: These are multiyear histories of neck and back pain with partial radicular patterns occurring in the context of bilateral carpal tunnel syndrome and also she mentions incidentally that she has had a previous history of treated breast cancer. However, given the long-term history of these problems and their very mechanical pattern, we have talked about the pros and cons of imaging and surgical injection considerations at length, but we have mutually decided as she does not want to pursue these approaches to take out a more mechanical approach to this seeing if she could respond to mechanical diagnosis and treatment and then thinking in the broader sense about intensive rehabilitation toward her functional recovery goals as above depending on her outcomes from her carpal tunnel releases. After discussing all this for 30 of this 45-minute visit, we have mutually decided to proceed as follows. PLAN: She is going to return for mechanical diagnosis and treatment with the spine center physical therapy staff. Depending on her response to this, we would go forward either with imaging or with a goals, assessment, and physical capacity evaluation to better assess her need for and likelihood of benefit from intensive rehabilitation. documented in this encounter Plan of Treatment Upcoming Encounters Date Type Department Care Team (Late st Contact Info) Description 04/13/2024 2:00 PM EST Office Visit Dermatology at [place] [address] [place] [phone] Wan Wellington MD [address], [place] [address] Scheduled Referrals Name Type Priority Associated Diagnoses Orde r Schedule Referral to Physical Therapy Outpatient Referral Routine Chronic low back pain Ordered: 01/17/2015 documented as of this encounter Visit Diagnoses Diagnosis Chronic low back pain Lumbago Chronic neck pain Cervicalgia documented in this encounter Care Teams Excel Expert Relationship Specialty Start Date End Date Brigitte Almanza MD [address] [place] [address] PCP - General 08/19/14 12/29/18 documented as of this encounter
--- OUTSIDE RECORDS SUMMARY | 2023-10-08 01:17 | XMS_ITS | Encounter Summary ---
Author Organization [facility] [place] [address] Care Team Providers Care Brothel Keeper Name Role Phone Brigitte Almanza MD Primary Care Provider [phone] Reason for Visit * Auth/Cert Specialty Diagnoses / Procedures Referred By Wan sloan Referred To Contact Diagnoses Left carpal tunnel syndrome Procedures PRO WRIST ARTHROSCOP, RELEASE XVERS LIG ENDOSCOPY WRIST W/ RELEASE TRANSVERSE CARPAL LIGAMENT Referral ID Status Reason Start Date Expiration Date Visits Re quested Visits Authorized [id number] 1 1 Encounter Details Date Type Department Care Team (Latest Contact Info) Description 03/03/2015 2:22 PM EST - 03/03/2015 4:15 PM EST Hospital Encounter [facility] [place] [phone] Kingsley Perry MD [facility] [place] [address] Discharge Disposition: Home Social History Tobacco Use [...] Sign Reading Time Taken Comments Blood Pressure 140/75 03/03/2015 4:00 PM EST Pulse 65 03/03/2015 4:00 PM EST Temperature 37.1 ??C (98.8 ??F) [...] closest emergency room or call the hospital catalyst operator gasoline at [phone] and ask for physician health occupations teacher covering for your physician. Questions or problems after 5pm or on a weekend: Call the [facility] catalyst operator gasoline at and ask for the physician health occupations teacher covering for your doctor. * Patient Instructions* [...] on them. You can also take an awem-jmo-[id number] stool softener, colace or senna, to facilitate [...] unsteady on your feet. Call your doctor (#[phone]) if: 1. You have a fever > 101.5 or experience chills ??? Increased discharge from the incision ??? Any redness or swelling around the incision ??? Increased pain or change in the pain that is not controlled by your pain meds WHERE TO CALL WITH QUESTIONS [facility] Ask for the resident health occupations teacher for your provider [facility] (7:00am [...] Operative Note Patient Name: Whitney Fam : [id number] MR#: [id number] Case Date: 03/03/2015 Surgeon: Surgeon(s) and Role: [...] Perry MD - 03/03/2015 2:51 PM EST [facility] Operative Note Patient Name: Whitney Fam : [id number] MR#: [id number] Case Date: 03/03/2015 Surgeon: Surgeon(s) and Role: [...] A preoperative time-out was performed as per [facility] protocol. 7 mL of 1% lidocaine with [...] 2:00 PM EST Office Visit Dermatology at [place] [address] [facility] [place] [address] Wan Wellington MD [address] [facility] [facility], [place] [address] (work) documented as of this encounter Procedures Procedure Name Priority Date/Time Associated Diagnosis Comments ENDOSCOPY WRIST W/ RELEASE TRANSVERSE CARPAL LIGAMENT (WRVU 6.39) 03/03/2015 3:04 PM EST Bilateral carpal tunnel syndrome documented in this encounter Visit Diagnoses Diagnosis s/p L endoscopic carpal tunnel release Carpal tunnel syndrome documented in this encounter [...] 1452, Until Fri03/03/15 at 1452, CHE FRIEND: cabinet override gabapentin (NEURONTIN) capsule 300 mg 300 [...] 2:47 PM EST 1,000 mLs 100 mL/hr documented [...] Routine 1447 (Given - Provid er: Che Sagastume RN) gabapentin (NEURONTIN) capsule 300 mg (COMPLETED) [...] Comment: mixed with lidocaine 1% with epi [id number]) documented in this encounter Care Teams Brothel Keeper Relationship Specialty Start Date End Date Brigitte Almanza MD [address] [place] [address] PCP - General 08/19/14 12/29/18 documented as of this encounter
--- OUTSIDE RECORDS SUMMARY | 2023-10-08 01:17 | XMS_ITS | Encounter Summary ---
Author Organization [place] [address] Care Team Providers Care Small Business Sales Representative Name Role Phone Bernice Cheung APRN Primary Care Provider [phone] Encounter Details Date Type Department Care Team (Latest Contact Info) Description 04/01/2023 Travel Social History Tobacco Use Types Packs/Day Years [...] 2:00 PM EST Office Visit Dermatology at [place] [address] [place] [address] Wan Wellington MD [address] [facility], [place] [address] documented as of this encounter Visit Diagnoses Not on filedocumented in this encounter Care Teams Small Business Sales Representative Relationship Specialty Start Date End Date Bernice Cheung APRN [address] [place] [address] PCP - General Family Medicine 04/01/22 documented as of this encounter
--- OUTSIDE RECORDS SUMMARY | 2023-10-08 01:17 | XMS_ITS | Encounter Summary ---
Author Organization [facility] Address [facility] [place] [address] Care Team Providers Care Blueprint Trimmer Name Role Phone Brenice Cheung RICK Primary Care Provider [phone] Encounter Details Date Type Department Care Team (Late st Contact Info) Description 04/09/2022 Telephone Dermatology at [address] [address] Alla Guillen RN Social History [...] Telephone Encounter - Alla Guillen RN - 04/09/2022 9:40 AM EST Patient called and informed of her pathology results. Patient had a shave biopsy right lateral calfon 04/01/2022. Diagnosis: Squamous cell carcinoma. Dr. Wellington's recommendation is no further treatment is needed. Patient informed this and stated that she understood. Patient does have a follow up on 04/01/2023 and reminded of her appointment. documented in this encounter Plan of Treatment Upcoming Encounters Date Type Department Care Team (Late st Contact Info) Description 04/13/2024 2:00 PM EST Office Visit Dermatology at [address] [phone] Wan Wellington MD [address] [place] [address] RD, [place] [address] documented as of this encounter Visit Diagnoses Not on filedocumented in this encounter Care Teams Blueprint Trimmer Relationship Specialty Start Date End Date Bernice Cheung APRN [address] [place] [address] PCP - General Family Medicine 04/01/22 documented as of this encounter
--- OUTSIDE RECORDS SUMMARY | 2023-10-08 01:17 | XMS_ITS | Encounter Summary ---
Author Organization [facility] [place] [address] Care Team Providers Care Automatic Dispenser Mechanic Name Role Phone Jonatan Bernice RICK Primary Care Provider [phone] Reason for Visit * Reason Comments Annual Exam Encounter Details Date Type Department Care Team (Late st Contact Info) Description 04/01/2023 3:45 PM EST Office Visit Dermatology at [address] [phone] Wan [place] MD [address] [facility], [place] [address] History of basal cell carcinoma; History of SCC (squamous cell carcinoma) of skin Social History Tobacco Use Types Packs/Day Years [...] Progress Notes * Wan [place] MD - 04/01/2023 3:45 PM EST Problem: 1. Skin checkup. 2. History of BCCA right lower lateral eyelid, April 2008 3. History of SCCA, right lateral calf March 2022 Whitney follows up for annual skin checkup. She has noted a few new lesions of concern. Physical examination is a pleasant 62-year-old woman who has what appears to be Glenda or superficial BCC on the left posterior ankle. She has benign examination otherwise of the head and the neck the chest the back the hands arms forearms thighs and calves. There is no evidence of recurrent tumorsat the above-noted prior treatment sites. She has active tinea versicolor in the axillary vaults, and on the upper chest and. Assessment plan: Fam's disease versus superficial BCCA left posterior ankle 1. After obtaining informed consent site was anesthetized and removed with shave C&D 2. After curettage, site measured 1 cm in diameter 3. Wound care instructions and supplies given 4. Return to clinic in a year for repeat check. Tinea versicolor: 1. Tinea versicolor is again active. She is having difficulty clearing it. 2. Will prescribe selenium sulfide 2.5% lotion. Use on a daily basis applying to the chest and torso for 1 week, rinse off after 3 minutes, then use once weekly thereafter dispense 120 mL with 5 refills 3. Will prescribe Diflucan/fluconazole take 150 mg x 1, repeat again in 7 days dispense 2 pills with 0 refills. This is worked well for her in the past she states. CC: Bernice Cheung APRN documented in this encounter Plan of Treatment Upcoming Encounters Date Type Department Care Team (Late st Contact Info) Description 04/13/2024 2:00 PM EST Office Visit Dermatology at [place] [address] [place] [address] Wan [place] MD [address] [facility], [place] [address] documented as of this encounter Visit Diagnoses Diagnosis History of basal cell carcinoma Personal history of other malignant neoplasm of skin History of SCC (squamous cell carcinoma) of skin Personal history of other malignant neoplasm of skin documented in this encounter Care Teams Automatic Dispenser Mechanic Relationship Specialty Start Date End Date Bernice Cheung APRN [address] [place] [address] PCP - General Family Medicine 04/01/22 documented as of this encounter
--- OUTSIDE RECORDS SUMMARY | 2023-10-08 01:17 | XMS_ITS | Encounter Summary ---
Author Organization [facility] Address [facility] [place] [address] Care Team Providers Care Repairer Helper Name Role Phone Jonatan Bernice CABRERA Primary Care Provider [phone] Reason for Visit * Reason Comments Follow-up Encounter Details Date Type Department Care Team (Late st Contact Info) Description 04/01/2022 2:30 PM EST Office Visit Dermatology at [address] [phone] Wan [place] MD [address] [facility], [place] [address] History of basal cell carcinoma; History of [...] Progress Notes * Wan [place] MD - 04/01/2022 2:30 PM EST Problem: 1. ??Follow-up for treatment of likely SCC/BCCA's on legs 2. ??History of BCCA right lower lateral eyelid, April 2008 3. History of SCCA left lateral calf February 2022 Whitney follows up for treatment of a right lateral calf hyperkeratotic lesion suspicious for probable SCCA. Physical exam again reveals an 8 mm hyperkeratotic papule on the right lateral calf. Assessment plan: Probable SCCA right lateral calf 1. Today the site was anesthetized and removed with shave C&D 2. Triple antibiotic ointment and bandage placed. After curettage site measured 8 mm in diameter 3. Return to clinic in another year for repeat check. CC: Bernice Cheung APRN documented in this encounter Plan of Treatment Upcoming Encounters Date Type Department Care Team (Late st Contact Info) Description 04/13/2024 2:00 PM EST Office Visit Dermatology at [place] [address] [facility] [address] Wan [place] MD [address] [facility], [place] [address] documented as of this encounter Visit Diagnoses Diagnosis History of basal cell carcinoma Personal history of other malignant neoplasm of skin History of SCC (squamous cell carcinoma) of skin Personal history of other malignant neoplasm of skin documented in this encounter Care Teams Repairer Helper Relationship Specialty Start Date End Date Bernice Cheung APRN [address] [place] [address] PCP - General Family Medicine 04/01/22 documented as of this encounter
--- OUTSIDE RECORDS SUMMARY | 2023-10-08 01:17 | XMS_ITS | Encounter Summary ---
Author Organization [facility] Address [facility] [place] [address] Care Team Providers Care Printing Gray Cloth Tender Name Role Phone Brigitte Almanza MD Primary Care Provider [phone] Reason for Visit * Auth/Cert - Closed Specialty Diagnoses / Procedures Referred By Contbelkys t Referred To Contact Diagnoses Right carpal tunnel syndrome Procedures ENDOSCOPY WRIST W/ RELEASE TRANSVERSE CARPAL LIGAMENT Referral ID Status Reason Start Date Expiration Date Visits Re quested Visits Authorized [id number] Closed 1 1 Encounter Details Date Type Department Care Team (Late st Contact Info) Description 02/07/2015 3:48 PM EST Anesthesia Event [facility] [place] [phone] Chandni Scott MD [facility] [place] [address] Ivonne Sanderson CRNA [facility] [place] [address] Anesthesia Record Procedure Summary Procedure Name Responsible Anesthesiologist Anesthesia Start Time Anesthesia Stop Time ENDOSCOPY WRIST W/ RELEASE TRANSVERSE CARPAL LIGAMENT (WRVU 6.39) (Right: Wrist) Chandni Scott MD 02/07/15 1548 02/07/15 1618 Events Date Time Event Comment 02/07/2015 1521 1548 Start 1551 AN Verify 1551 An Start Data 1553 Anesthesia Ready 1609 An Tourn Deflated 6 minutes. 1612 an stop data 1616 Recovery or ICU Handoff Natalie ent care was transferred to the destination unit staff after review of the patient's medical history, current anesthetic/surgical status and plan, according to the Provider Handoff Checklist. 1618 Stop Meds Name Total Midazolam 2 mg fentaNYL 100 mcg IV Lidocaine 50 mg Propofol 50 mg Propofol INF 90.86 mg ceFAZolin (ANCEF) 2 gram/50 mL infusion 2 g Ondansetron 8 mg Dexamethasone 4 mg lactated ringers infusion 1,000 mL 600 m L * Agents Name O2 * Blood No blood administrations on file. Lines, Drains, and Airways Type Details Placement Removal Incision 02/07/15; wrist; 10/22/21 (LDA cleanup utility RA#[id number]); 1715 (LDA cleanup utility RA#[id number]) 02/07/15 0000 by Vida Cavazos 10/22/21 1715 by Coby Read (RETIRED) Peripheral IV Line - Single Lumen 02/07/15; 1337; median cubital vein left (antecubital fossa); [id number] catheter system; 20 gauge, 1 in length; intradermal injection; 02/07/15; 1647 02/07/15 1337 by Kaykay Fernández I, RN 02/07/15 1647 by Luz Bowens RN documented in this encounter Social History [...] OR Notes * Anesthesia Postprocedure Evaluation - Chandni Scott MD - 02/07/2015 4:52 PM EST [facility] [place] Anesthesiology Post-procedure Note Patient: Whitney Fam Procedure Summary Date Anesthesia Start Anesthesia Stop Room / Location 02/07/15 1548 1618 [facility] OR [address] [place] [address] [facility] Procedure Diagnosis Surgeon Responsible Provider ENDOSCOPY WRIST W/ RELEASE TRANSVERSE CARPAL LIGAMENT (Right Wrist) Bilateral carpal tunnel syndrome Dominic Perry MD Seiffert, Ellen A, MD (Right carpal tunnel syndrome) Last (1hr) Vitals: BP 129/67 mmHg (02/07/15 1617) Temp 36.4 ??C (97.5 ??F) (02/07/151616) Pulse 76 (02/07/151616) Resp 20 (02/07/151616) SpO2 97 % (02/07/151616) Patient Location: [facility] Level of Consciousness: Awake and Alert Pain Management: Satisfactory Analgesia PONV: Cardiovascular Status: At Baseline Respiratory Status: Room Air and At Baseline Postoperative Fluid Status: Intravascular EUvolemia Possible Anesthetic Complications: NONE apparent at time of evaluation Final Primary Anesthesia Type: MAC (The anesthetic type performed was the same as planned.) Comments: * Anesthesia Preprocedure Evaluation - Chandni Scott MD - 02/07/2015 3:21 PM EST Pre-Anesthesia Evaluation for: Whitney Fam a 54 y.o. female. Procedure(s): ENDOSCOPY WRIST W/ RELEASE TRANSVERSE CARPAL LIGAMENT Patient Active Problem List Diagnosis ??? Chronic low back pain ??? Chronic neck pain ??? Tinea versicolor ??? History of basal cell carcinoma ??? Nevus ??? Carpal tunnel syndrome ??? Travel foreign Past Medical History Diagnosis Date ??? Scoliosis Past Surgical History Procedure Laterality Date ??? Breast lumpectomy History Substance Use Topics ??? Smoking status: Former Smoker ??? Smokeless tobacco: Never Used ??? Alcohol Use: No History Drug Use No No Known Allergies Medications: MAR and/or home medications have been reviewed. Physical Exam: Filed Vitals: 02/07/15 1313 BP: 129/75 Pulse: 70 Temp: 36.5 ??C (97.7 ??F) Resp: 20 Body mass index is 21.11 kg/(m^2). Height: 175.3 cm (5' 9) Weight - Scale: 64.864 kg (143 lb) Airway Assessment: Mallampati: II TM distance: >3 FB Neck ROM: full Cardiovascular Assessment: Pulmonary Assessment: Dental Assessment: Misc Assessment: IV access: Peripheral line Anesthesia Plan: ASA 1 MAC, with a(n) intravenous induction Ms. Fam is a 54 year old female with PMHx of anxiety who presents for CTR. Pt has NKDA. Plan for Tylenol, gabapentin, MAC (pre-procedure midazolam). Risks were discussed at length, and all questions and concerns were addressed. Consent was obtained, and the appropriate paperwork was placed in the patient's chart. Region - Other Informed Consent: Anesthetic plan and risks discussed with patient. Plan discussed with PEPPER CUTTER. PAT Staff Note documented in this encounter Plan of Treatment Upcoming Encounters Date Type Department Care Team (Late st Contact Info) Description 04/13/2024 2:00 PM EST Office Visit Dermatology at [place] [address] [place] [address] Wan [place] MD [address] [facility] [address], [place] [address] documented as of this encounter Visit Diagnoses Not on filedocumented in this encounter Administered Medications Inactive Administered Medications - up to 3 most recent administrations Medication Order MAR Action Action Date Dose Rate Site ceFAZolin (ANCEF) 2 gram/50 mL infusion 1 dose, Starting on Fri02/07/15 at 1309, Until Fri02/07/15 at 1553, KAYKAY FERNÁNDEZ: cabinet override Given 02/07/2015 3:53 PM EST 2 g dexamethasone (DECADRON) injection PRN, Starting on Fri02/07/15 at 1554, Until Fri02/07/15 at 1618, Anesthesia Intra-op, Routine Given 02/07/2015 3:54 PM EST 4 mg fentaNYL 50 mcg/mL multi-dose injection PRN, Starting on Fri02/07/15 at 1550, Until Fri02/07/15 at 1618, Pain, Anesthesia Intra-op, Routine Given 02/07/2015 3:58 PM EST 25 mcg Given 02/07/2015 3:55 PM EST 25 mcg Given 02/07/2015 3:52 PM EST 25 mcg lidocaine (PF) (XYLOCAINE) 100 mg/5 mL (2 %) injection PRN, Starting on Fri02/07/15 at 1553, Until Fri02/07/15 at 1618, Anesthesia Intra-op, Routine Given 02/07/2015 3:53 PM EST 50 mg midazolam (PF) (VERSED) 1 mg/mL multi-dose injection PRN, Starting on Fri02/07/15 at 1548, Until Fri02/07/15 at 1618, Sleep, Anesthesia Intra-op, Routine Given 02/07/2015 3:48 PM EST 2 mg ondansetron (ZOFRAN) injection PRN, Starting on Fri02/07/15 at 1611, Until Fri02/07/15 at 1618, Nausea, Anesthesia Intra-op, Routine Given 02/07/2015 4:11 PM EST 8 mg propofol (DIPRIVAN) 10 mg/mL bolus injection (Anesthesia) PRN, Starting on Fri02/07/15 at 1553, Until Fri02/07/15 at 1618, Anesthesia Intra-op Given 02/07/2015 3:53 PM EST 50 mg propofol (DIPRIVAN) infusion CONTINUOUS PRN, Starting on Fri02/07/15 at 1553, Until Fri02/07/15 at 1618, Anesthesia Intra-op, Routine Rate/Dose Change 02/07/2015 4:03 PM EST 100 mcg/kg/min 38.9 mL/hr Rate/Dose Change 02/07/2015 3:59 PM EST 150 mcg/kg/min 58. 4 mL/hr New Bag 02/07/2015 3:53 PM EST 100 mcg/kg/min 38.9 mL/h r documented in this encounter Care Teams Printing Gray Cloth Tender Relationship Specialty Start Date End Date Brigitte Almanza MD [address] [place] [address] PCP - General 08/19/14 12/29/18 documented as of this encounter
--- OUTSIDE RECORDS SUMMARY | 2023-10-08 01:17 | XMS_ITS | Encounter Summary ---
Author Organization [facility] [place] [address] Care Team Providers Care Customer Management Specialist Name Role Phone Bernice Cheung APRN Primary Care Provider [phone] Encounter Details Date Type Department Care Team (Latest Contact Info) Description 04/01/2022 Travel Social History Tobacco Use Types Packs/Day [...] 2:00 PM EST Office Visit Dermatology at [place] [address] [place] [address] Wan [place] MD [address] [facility] [place] [address] documented as of this encounter Visit Diagnoses Not on filedocumented in this encounter Care Teams Customer Management Specialist Relationship Specialty Start Date End Date Bernice Cheung APRN [address] [place] [address] PCP - General Family Medicine 04/01/22 documented as of this encounter
--- OUTSIDE RECORDS SUMMARY | 2023-10-08 01:17 | XMS_ITS | Encounter Summary ---
Author Organization [facility] Address [facility] [place] [address] Care Team Providers Care Bicycle Mechanic Name Role Phone Brigitte Almanza MD Primary Care Provider [phone] Reason for Visit * Reason Onset Date Comments Bumped Appointment 11/10/2014 Encounter Details Date Type Department Care Team (Late st Contact Info) Description 11/10/2014 Telephone [place] [phone] Dominic Perry MD [facility] [place] [address] Bumped Appointment Social History Tobacco Use Types Packs/Day Years Used Date Smoking Tobacco: Never Assessed Sex and Gender Information Value Date Recorded Sex Assigned at Not on file Gender Identity Not on file Sexual Orientation Not on file documented as of this encounter Miscellaneous Notes * Telephone Encounter - Heather Foley - 11/11/2014 10:10 AM EDT Patient scheduled * Telephone Encounter - Kelsey Cifuentes - 11/10/2014 10:11 AM EDT Patient's appointment was bumped. Left message for them to call back and reschedule. May use Francine or Whitney same day documented in this encounter Plan of Treatment Upcoming Encounters Date Type Department Care Team (Late st Contact Info) Description 04/13/2024 2:00 PM EST Office Visit Dermatology at [place] [address] [place] [phone] Wan [place] MD [address] [facility], [place] [address] documented as of this encounter Visit Diagnoses Not on filedocumented in this encounter Care Teams Bicycle Mechanic Relationship Specialty Start Date End Date Brigitte Almanza MD [address] [place] [address] PCP - General 08/19/14 12/29/18 documented as of this encounter
--- OUTSIDE RECORDS SUMMARY | 2023-10-08 01:17 | XMS_ITS | Encounter Summary ---
Author Organization [facility] Address [facility] [place] [address] Care Team Providers Care Pulp Making Plant Operator Name Role Phone Brigitte Almanza MD Primary Care Provider Reason for Visit * Reason Comments Follow Up Surgery L CTR DOS 03/03/15 Encounter Details Date Type Department Care Team (Late st Contact Info) Description 03/16/2015 1:30 PM EST Office [place] [address] Francine Campoverde PA [address] [place] [address] [place] [address] Bilateral carpal tunnel syndrome Social History Tobacco [...] Pulse 76 03/16/2015 1:48 PM EST Temperature - - Respiratory Rate - - Oxygen Saturation - - Inhaled Oxygen Concentration - - Weight 63 kg (139 lb) 03/16/2015 1:48 PM EST kevin bal Height 175.3 cm (5' 9) 03/16/2015 1:48 PM EST v erbal Body Mass Index 20.53 03/16/2015 1:48 PM EST documented in this encounter Progress Notes * Francine Campoverde PA - 03/16/2015 2:03 PM EST This 54-year-old female comes in today status post left endoscopic carpal tunnel release, 03/03/2015, Dr. Perry. She is also status post right endoscopic carpal tunnel release, 02/07/2015, Dr. Perry. She is doing well. She has not had any numbness or tingling. No significant pain in the hands. She did have some nausea from the oxycodone, but was able to manage her pain with [id number] nonsteroidals and Tylenol. Examination of her left hand shows no significant swelling. The incision is well healed without evidence of infection. Full range of motion of all fingers. Examination of her right hand shows that she still has some swelling in the area of the incision. No erythema. It is sensitive to touch. IMPRESSION: Status post left endoscopic carpal tunnel release, 03/03/2015 and right endoscopic carpal tunnel release, 02/07/2015; Dr. Perry. TREATMENT: Sutures were removed from the left wrist. She may now get this wet. She can gradually increase the use of her hands as she feels comfortable. We discussed not returning to all activities at once and gradually increasing it over the course of the next four weeks. On the right, she will continue with scar massage and hopefully, this will get less sensitive with time. She will follow up here p.r.n. documented in this encounter Plan of Treatment Upcoming Encounters Date Type Department Care Team (Late st Contact Info) Description 04/13/2024 2:00 PM EST Office Visit Dermatology at [place] [address] [facility] [place] [address] Wan [place] MD [address] [facility], [place] [address] documented as of this encounter Visit Diagnoses Diagnosis Bilateral carpal tunnel syndrome Carpal tunnel syndrome documented in this encounter Care Teams Pulp Making Plant Operator Relationship Specialty Start Date End Date Brigitte Almanza MD [address] [place] [address] PCP - General 08/19/14 12/29/18 documented as of this encounter
--- OUTSIDE RECORDS SUMMARY | 2023-10-08 01:17 | XMS_ITS | Encounter Summary ---
Author Organization [facility] Address [facility] [place] [address] Care Team Providers Care Pull Out Operator Name Role Phone OusmaneJaz Rand CABRERA Primary Care Provider [phone] Reason for Visit * Reason Comments Travel Consult Encounter Details Date Type Department Care Team (Late st Contact Info) Description 03/03/2012 2:30 PM EST Office Visit Infectious Disease at [facility] [place] [phone] Bethany Blanton venereal disease control head foreign (Primary Dx) Discharge Disposition: Home Social History Tobacco Use Types Packs/Day Years Used Date Smoking Tobacco: Never Assessed Sex and Gender Information Value Date Recorded Sex Assigned at Not on file Gender Identity Not on file Sexual Orientation Not on file documented as of this encounter Progress Notes * Bird Gr MD - 03/06/2012 3:36 PM EST I agree with the recommendations of Bethany Blanton after review of her note. * Bethany Blanton RN - 03/05/2012 1:16 PM EST Adult Travel Clinic Reason for Visit: Whitney Fam is a 51 y.o. old patient who comes to travel clinic today for pre-travel evaluation, vaccination and traveler's health education. 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 History of adverse vaccine reactions: None. History of latex allergy: None. Not or . Medications: Current Outpatient Prescriptions Medication Sig Dispense Refill ??? cholecalciferol, Vitamin D3, 400 unit tablet Take 400 Units by mouth daily. ??? [place]-3 Fatty Acids (FISH OIL) 500 mg Cap Take by mouth. ??? B-complex with vitamin C tablet Take 1 tablet by mouth daily. ??? ciprofloxacin (CIPRO) 500 mg tablet Take 1 tablet by mouth 2 times daily for 3 days. As needed for traveler's diarrhea accompanied by fever; stop calcium medications 6 tablet 0 ??? atovaquone-proguanil (MALARONE) 250-100 mg per tablet Take 1 tablet by mouth daily. Start 1 dayprior to travel; Take daily in malaria area; continue for 7 days after return 24 tablet 0 Allergies: Review of patient's allergies indicates no known allergies. Patient advised to carry all medications in carry on luggage. Travel Health and Safety Issues: A discussion of travel health hazards and safety issues was done, including the following topics: (x) Traffic-accidents (alcohol, seatbelts) (x) Crime (x) Alcohol related issues (x) Sun exposure/heat illness (x) Schistosomiasis and other fresh water exposures (x) Rabies (x) HIV infections, Hepatitis (x) TB (x) Health insurance coverage/[employer] (x) Other: embassy information Discussed food and water precautions and patient handout provided. The following strategies were recommended for the management of traveler's diarrhea according to severity: For treatment of mild diarrhea: hydration and over the counter antidiarrheal recommended. For treatment of diarrhea accompanied by fever or systemic illness: hydration and empiric treatmentwith antibiotic recommended. A prescription for cipro, twice daily for three days,sent to [facility] For severe or bloody diarrhea, or diarrhea accompanied by vomiting: patient advised to seek medicaltreatment. Vector-borne Disease Prevention Discussed insect bite prevention to reduce risk of malaria, dengue and other insect borne illnesses. Handout given. Malaria Risk: (x) Significant risk of malaria on this itinerary. Discussed malaria chemoprophylaxis and possible side effects. [facility] [place] Altitude: (x) This trip does not involve high altitude. . Follow-up Recommendations: A recommendation was made that the patient have a tst placed about 3 months after returning from this trip. The patient may either call the travel clinic or get this done through their primary healthcare consultant. Patient advised to call travel clinic if they return from trip with any illness. Time spent in travel counselin min with group Note written by BETHANY BLANTON RN Travel Clinic Immunization History and Orders Immunizations Last dose Give today Give at future date Tetanus/diphtheria (0.5 ml IM) Td 2000 Tdap 03/03/2012 MMR (0.5 ml IM) One dose; may have had 2nd dose Will call PCP office to check; understands Recommendation is to have 2nd dose if she has not had Polio (0.5 ml SC) Primary series Hepatitis A (Adult-1.0 ml IM) (Pedi-0.5 ml IM) 1.does not want- strongly urged her to have this vaccine; education provided 2. 1. 2. Immune serum globulin (specify route/dose) Hepatitis B (adult-1 ml IM X 3) (pedi-0.5 ml IM X 3) never 1. 2. 3. 1. 2. 3. Twinrix (Hep A/B) (1.0 ml IM) 1. 2. 3. 1. 2. 3. Typhoid (specify route/dose) Does not want Yellow fever (0.5 ml IM) 03/03/2012 Meningococcal (0.5 ml IM) 03/03/2012 Rabies (specify type/dose) 1.education provided; knows actions to take if exposed 2. 3. 1. 2. 3. Ukrainian Encephalitis 1. 2. 3. 1. 2. 3. 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 documented in this encounter Plan of Treatment Upcoming Encounters Date Type Department Care Team (Late st Contact Info) Description 04/13/2024 2:00 PM EST Office Visit Dermatology at [place] [address] [place] [phone] Wan Wellington MD [address], [place] [address] documented as of this encounter Visit Diagnoses Diagnosis Travel foreign- Primary Other specified conditions influencing health status documented in this encounter Care Teams Pull Out Operator Relationship Specialty Start Date End Date Jaz Romeo APRN [address] [place] [address] PCP - General 01/16/10 08/18/14 documented as of this encounter
--- OUTSIDE RECORDS SUMMARY | 2023-10-08 01:17 | XMS_ITS | Encounter Summary ---
Author Organization [facility] Address [facility] [place] [address] Care Team Providers Care Energy Attorney Name Role Phone KeoRomeo DDS Primary Care Provider [phone] Encounter Details Date Type Department Care Team (Late st Contact Info) Description 01/04/2019 Telephone Medical Genetics at [address] [address] Chery Cedeno [facility] [place] [place] [address] Social History Tobacco Use Types Packs/Day Years [...] encounter Miscellaneous Notes * Telephone Encounter - Chery Cedeno LGC - 01/04/2019 1:37 PM EST Sister was diagnosed with FTD at age 58 and was seen at [facility]. [facility] has reported that they think is very likely that she has a genetic condition based on finding on MRI and other scans. Her mother wasalso affected, but did not have genetic testing. Her sister lives in [place]. Her sister has not had genetic testing yet, but testing is planned for next May. Based on the family history if this isin fact genetic, then Whitney has up to a 50% risk to have inherited the condition. I explained whywe need to have testing on her sister first since it is possible that her sister's testing is negative. She will discuss with her sister and then contact us with additional questions. documented in this encounter Plan of Treatment Upcoming Encounters Date Type Department Care Team (Late st Contact Info) Description 04/13/2024 2:00 PM EST Office Visit Dermatology at [place] [address] [facility] [place] [address] Wan Wellington MD [address] [facility] [place] [address] documented as of this encounter Visit Diagnoses Not on filedocumented in this encounter Care Teams Energy Attorney Relationship Specialty Start Date End Date Romeo Crowley, JULIS [address] [place] [address] PCP - General Dental Twister In 12/30/18 3 documented as of this encounter
--- OUTSIDE RECORDS SUMMARY | 2023-10-08 01:17 | XMS_ITS | Encounter Summary ---
Author Organization [facility] Address [facility] [place] [address] Care Team Providers Care Learning And Development Consultant Name Role Phone Brigitte Almanza MD Primary Care Provider [phone] Reason for Visit * Auth/Cert - Closed Specialty Diagnoses / Procedures Referred By Wan sloan Referred To Contact Diagnoses Right carpal tunnel syndrome Procedures ENDOSCOPY WRIST W/ RELEASE TRANSVERSE CARPAL LIGAMENT Referral ID Status Reason Start Date Expiration Date Visits Re quested Visits Authorized [id number] Closed 1 1 Encounter Details Date Type Department Care Team (Late st Contact Info) Description 02/07/2015 2:45 PM EST - 02/07/2015 3:15 PM EST Surgery [facility] [place] [phone] Kingsley Perry MD [facility] [place] [address] ENDOSCOPY WRIST W/ RELEASE TRANSVERSE CARPAL LIGAMENT [...] Sign Reading Time Taken Comments Blood Pressure 129/75 02/07/2015 1:13 PM EST Pulse 70 02/07/2015 1:13 PM EST Temperature 36.5 ??C (97.7 ??F) 02/07/2015 1:13 PM ES T Respiratory Rate 20 02/07/2015 1:13 PM EST Oxygen Saturation 98% 02/07/2015 1:13 PM EST Inhaled Oxygen Concentration - - [...] 5pm or on a weekend: Call the [facility] xerox machine operator and ask for the physician button pusher covering for your doctor. * Patient Instructions* [...] on them. You can also take an hedl-ftm-ypckawa stool softener, colace or senna, to facilitate [...] incision or dressings wet. Call your doctor (#[phone]) if: ?? You have a fever > 101.5 or experience chills Increased discharge from the incision Any redness or swelling around the incision Increased pain or change in the pain that is not controlled by your pain medications WHERE TO CALL WITH QUESTIONS [facility] Ask for the resident button pusher for your provider [facility] (7:00am [...] Perry MD - 02/07/2015 3:09 PM EST [facility] Operative Note Patient Name: Whitney Fam : [id number] MR#: [id number] Case Date: 02/07/2015 Surgeon: Surgeon(s) and Role: [...] A preoperative time-out was performed as per [facility] protocol. 6mL of 1% lidocaine with epinephrine [...] Operative Note Patient Name: Whitney Fam : [id number] MR#: [id number] Case Date: 02/07/2015 Surgeon: Surgeon(s) and Role: [...] 2:00 PM EST Office Visit Dermatology at [place] [address] [facility] [place] [address] Wan Wellington MD [address] [facility], [place] [address] documented as of this encounter Procedures Procedure Name Priority Date/Time Associated Diagnosis Comments ENDOSCOPY WRIST W/ RELEASE TRANSVERSE CARPAL LIGAMENT (WRVU 6.39) 02/07/2015 3:51 PM EST Bilateral carpal tunnel syndrome documented in this encounter Visit Diagnoses Diagnosis Bilateral carpal [...] 1:26 PM EST 1,000 mLs 100 mL/hr lidocaine-EPINEPHrine 1 %-1:100,000 injection ONCE PRN, Starting on Fri02/07/15 at 1532, Until Fri02/07/15 at 1647, Intra-Operative (Intra-Procedure), Routine Given 02/07/2015 3:32 PM EST 20 mLs 19- Surgical Site sodium bicarbonate 8.4 % (1 mEq/mL) injection ONCE PRN, Starting on Fri02/07/15 at 1605, Until Fri02/07/15 at 1647, Intra-Operative (Intra-Procedure), Routine Given 02/07/2015 4:05 PM EST 2 mEq 19- Surgical Site [...] mEq/mL) injection (CANCELED) ONCE PRN, Starting on 02/07/15 at 1605, Until Fri02/07/15 at 1647, Intra-Operative (Intra-Procedure), Routine 1605 (Given [...] CRNA) documented in this encounter Care Teams Learning And Development Consultant Relationship Specialty Start Date End Date Brigitte Almanza MD [address] [place] [address] PCP - General 08/19/14 12/29/18 documented as of this encounter
--- OUTSIDE RECORDS SUMMARY | 2023-10-08 01:17 | XMS_ITS | Encounter Summary ---
Author Organization [facility] [place] [address] Care Team Providers Care Embedded Systems Designer Name Role Phone Romeo Crowley DDS Primary Care Provider [phone] Encounter Details Date Type Department Care Team (Latest Contact Info) Description 03/12/2022 Travel Social History Tobacco Use Types Packs/Day [...] 2:00 PM EST Office Visit Dermatology at [address] [place] [address] Wan Wellington MD [address] [facility] [place] [address] documented as of this encounter Visit Diagnoses Not on filedocumented in this encounter Care Teams Embedded Systems Designer Relationship Specialty Start Date End Date Romeo Crowley DDS [address] [place] [address] PCP - General Dental Anthropological Linguist 12/30/18 2/ 3 documented as of this encounter
--- OUTSIDE RECORDS SUMMARY | 2023-10-08 01:17 | XMS_ITS | Encounter Summary ---
Author Organization [facility] [place] [address] Care Team Providers Care Business Development Representative Name Role Phone Brigitte Almanza MD Primary Care Provider Reason for Referral * Surgical (Routine) - Closed Specialty Diagnoses / Procedures Referred By Contbelkys t Referred To Contact Orthopaedics Diagnoses Bilateral carpal tunnel syndrome Procedures ARTHROSCOPY WRIST W/ RELEASE TRANSVERSE CARPAL LIGAMENT Whitney Casey PA [facility] [place] [address] [address] Referral ID Status Reason Start Date Expiration Date V isits Requested Visits Authorized [id number] Closed Specialty Service Requested 12/13/2014 12/13/2015 1 1 * Surgical (Routine) - Closed Specialty Diagnoses / Procedures Referred By Contac t Referred To Contact Orthopaedics Diagnoses Bilateral carpal tunnel syndrome Procedures ARTHROSCOPY WRIST W/ RELEASE TRANSVERSE CARPAL LIGAMENT Whitney Casey PA [facility] [place] [address] [facility] [address] [address] Referral ID Status Reason Start Date Expiration Date V isits Requested Visits Authorized [id number] Closed Specialty Service Requested 12/13/2014 12/13/2015 1 1 Reason for Visit * Reason Comments Bilateral Wrist Pain Encounter Details Date Type Department Care Team (Late st Contact Info) Description 12/13/2014 1:00 PM EDT Office Visit Orthopaedics at [facility] [place] [address] Whitney Casey PA [facility] DR [place] [address] Bilateral carpal tunnel syndrome Social History Tobacco [...] Sign Reading Time Taken Comments Blood Pressure 130/82 12/13/2014 1:04 PM EDT Pulse 81 12/13/2014 1:04 PM EDT Temperature - - Respiratory Rate - - Oxygen Saturation - - Inhaled Oxygen Concentration - - Weight - - Height 175.3 cm (5' 9) 12/13/2014 1:04 PM EDT Body Mass Index - - documented in this encounter Progress Notes * Whitney Casey PA - 12/13/2014 1:40 PM EDT PATIENT NAME: Whitney Fam AGE: 54 y.o. MR#: [id number] DATE OF VISIT: 12/13/2014 DATE OF INJURY/ONSET: Chronic STAFF: Dr. Peryr CHIEF COMPLAINT: R>L hand numbness HISTORY OF PRESENT ILLNESS: Ms. Fam is a right hand dominant 54 y.o. female who comes into clinictoday for evaluation of the bilateral hands. She was referred to [facility] by Brigitte Almanza. She states her symptoms have been present for over 10 years. She has had progressive numbness into the median nerve distribution. Her symptoms are more noticeable on the right. She denies having any known history of fractures or major trauma. She finds that her hand numbness is worse at bedtime and with driving. She also feels that her hands are very clumsy and weak. She enjoys rock climbing and finds that she is having difficulty with this activity in particular due to her lack of sensation and weakness. She has not had any prior wrist surgeries. She has tried using splints in the past and found that these were more uncomfortable than helpful. She denies having any history of diabetes or thyroiddisease. She presents today after having nerve conduction studies over the summer. She was told that she had bilateral carpal tunnel syndrome and is here to discuss surgical treatment. Medications and Allergies were reviewed in eD-H PAST MEDICAL HX: Past Medical History Diagnosis Date ??? Scoliosis PAST SURGICAL HX: Past Surgical History Procedure Laterality Date ??? 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 Smoking status: Never Smoker ??? Smokeless tobacco: Never Used ??? Alcohol Use: No ??? Drug Use: No ??? Sexual Activity: Not on file Activities: rock climbing, outdoor activities ROS: Constitutional: neg HEENT: neg Cardiac: neg Pulmonary: neg GI/: neg Endocrine: neg Skin: neg Musculoskeletal: see HPI PHYSICAL EXAM: Ms. Fam is a 54 y.o. female who is alert and oriented. She appears in no acute discomfort and is resting comfortably in the exam room. Inspection: No erythema, ecchymosis, or swelling involving the patient's bilateral wrists. Palpation: No point tenderness over the wrists. She finds at times that she has a generalized aching sensation over the volar aspect of the wrist that radiates towards her shoulders when her symptomsare exacerbated. She also has scoliosis and finds that she has neck and back pain at times and is scheduled to see the spine center. ROM/Strength: She is able to perform active wrist and finger range of motion. She states that her fingers will lock while rock climbing at times, but she had no reproducible triggering at the A1 manisha on exam today. She had some weakness with palmar abduction on the right. Orthopedic testing: Markedly positive Tinel's over the right carpal tunnel, negative Tinel's over the left carpal tunnel. Positive Phalen's and Pasotra's compression bilaterally. Negative Spurling's, although this did cause some neck pain. She had no reproducible ulnar nerve symptoms. Neurovascular: At baseline she reports diminished sensation into the right median nerve distribution. Sensation into the ulnar and radial nerve distributions remains intact bilaterally. Hands are well perfused. RADIOLOGICAL STUDIES: No x-rays were obtained. She had nerve conduction studies at [facility] and showed a right median motor nerve latency of 5.9 ms and a left median motor nerve latency of 4.7 ms. She also had prolonged sensory latencies bilaterally. ASSESSMENT: Bilateral carpal tunnel syndrome PLAN: Ms. Fam and Tomer discussed her radiologic findings and physical exam findings. We discussed treatment options to include splinting, cortisone injection, and surgical decompression. She is interested in definitive treatment. Booking orders for staged carpal tunnel releases were submitted. She would like to start with her right wrist and then proceed with her left wrist two weeks later. We discussed that in cases where there is severe, chronic nerve compression there may not be a complete resolution of symptoms even with surgical treatment. If anything this would help prevent further progression of her symptoms. She is scheduled to participate in a canoeing trip later this spring. We discussed that as long as her recovery goes according to plan she should be able to resume her normal level of activity by this time. She may find that she still has some weakness, persistent tingling, and some palmar pain, but she most likely will be able to work through this. She will return for follow up to meet with Dr. Perry. The patient understands to contact us if they have any other questions or concerns. The above documentation was completed using [employer] voice recognition software. documented in this encounter Plan of Treatment Upcoming Encounters Date Type Department Care Team (Late st Contact Info) Description 04/13/2024 2:00 PM EST Office Visit Dermatology at [place] [address] [facility] [place] [phone] Wan Wellington MD [address] [place] [address] documented as of this encounter Procedures Procedure Name Priority Date/Time Associated Diagnosis Comments ARTHROSCOPY WRIST W/ RELEASE TRANSVERSE CARPAL LIGAMENT Routine 12/13/2014 1:37 PM EDT Bilateral carpal tunnel syndrome ARTHROSCOPY WRIST W/ RELEASE TRANSVERSE CARPAL LIGAMENT Routine 12/13/2014 1:36 PM EDT Bilateral carpal tunnel syndrome documented in this encounter Visit Diagnoses Diagnosis Bilateral carpal tunnel syndrome Carpal tunnel syndrome documented in this encounter Care Teams Business Development Representative Relationship Specialty Start Date End Date Brigitte Almanza MD [address] [place] [address] PCP - General 08/19/14 12/29/18 documented as of this encounter
--- OUTSIDE RECORDS SUMMARY | 2023-10-08 01:17 | XMS_ITS | Encounter Summary ---
Author Organization [facility] Address [facility] [place] [address] Care Team Providers Care Drug Abuse Counselor Name Role Phone Brigitte Almanza MD Primary Care Provider Reason for Visit * Reason Comments Skin Check Encounter Details Date Type Department Care Team (Late st Contact Info) Description 12/20/2014 10:15 AM EDT Office Visit Dermatology at [address] [phone] Wan Wellington MD [address] [facility], [place] [address] Tinea versicolor; History of basal cell carcinoma; Nevus Social History Tobacco Use Types Packs/Day Years Used Date Smoking Tobacco: Never Smokeless Tobacco: Never Alcohol Use Standard Drinks/Week Comments No 0 (1 standard drink = 0.6 oz pur e alcohol) Sex and Gender Information Value Date Recorded Sex Assigned at Not on file Gender Identity Not on file Sexual Orientation Not on file documented as of this encounter Patient Instructions * Patient Instructions* Yaquelin Starr LPN - 12/20/2014 10:33 AM EDT [facility] Actinic Keratosis: After Your Visit Your Care Instructions Actinic keratosis is a skin growth caused by sun damage. It can turn into skin cancer, but this isn't common. Actinic keratoses, also called solar keratoses, are small red, brown, or skin-colored scaly patches. They are most common on the face, neck, hands, and forearms. Your doctor can remove these growths by freezing or scraping them off or by putting medicines on them. Follow-up care is a blackmon part of your treatment and safety. Be sure to make and go to all appointments, and call your doctor if you are having problems. It's also a good idea to know your test resultsand keep a list of the medicines you take. How can you care for yourself at home? ?? If your doctor removes the growth, clean the area with soap and water 2 times a day unless your doctor gives you different instructions. Don't use hydrogen peroxide or alcohol, which can slow healing. ?? You may cover the wound with a thin layer of petroleum jelly, such as Vaseline, and a nonstick bandage. To prevent actinic keratosis ?? Always wear sunscreen on exposed skin. Make sure the sunscreen blocks ultraviolet rays (both UVAand UVB) and has a sun protection factor (SPF) of at least 15. Use it every day, even when it is cloudy. Some doctors may recommend a higher SPF, such as 30. ?? Wear long sleeves, a hat, and pants if you are going to be outdoors for a long time. ?? Avoid the sun between 10 a.m. and 4 p.m., the peak time for UV rays. ?? Do not use tanning booths or sunlamps. When should you call for help? Watch closely for changes in your health, and be sure to contact your doctor if: ?? The areas that were treated are red, drain pus, or have red streaks leading from them. ?? You see other growths that do not go away. ?? You do not get better as expected. Where can you learn more? Visit our health information library at [email or web address] You can also view health information on [email or web address], your personal patient account. Log in or sign up today. Enter L364 in the search box to learn more about Actinic Keratosis: After Your Visit. ?? [id number] [employer]. Care instructions adapted under license by [facility]. This care instruction is for use with your licensed healthcare professional. If you have questions about a medical condition or this instruction, always ask your healthcare professional. [employer] disclaims any warranty or liability for your use of this information. Content Version: 10.4.116904; Current as of: September 23, 2013 documented in this encounter Progress Notes * Wan Wellington MD - 12/20/2014 11:12 AM EDT Problem: 1. Skin checkup. 2. History of BCCA right lower lateral eyelid, April 2008. Whitney follows up and is now 54. She would like to have a general skin checkup. There is a family history of melanoma in her sister and she has a personal history herself of the basal cell carcinoma as noted above. She enjoys growing all of her own food. She works outside a lot in the sun but does try to protect herself. Physical Examination: Reveals a pleasant 54-year-old woman who has tinea versicolor present on her back and upper chest. This is coming back after recent single dosing of fluconazole by her PCP. Fortunately, however, examination of the head and neck, the chest, the back, hands, arms, thighs, and calves is otherwise benign. There is no evidence of any malignant lesions. She has numerous junctional melanocytic nevi in the 1 to 3-mm diameter range that are unremarkable. Assessment and Plan: 1. Benign skin examination. a. Reassured about benign skin examination. b. Recommended continued sun avoidance precautions, particularly for head and neck. c. Discussed the vitamin D controversy d. Return to the clinic every five years for routine skin checkups given her family history and history of extensive sun exposure. 2. Tinea versicolor. a. Discussed the option of medicated shampoos to try to use for this. b. Patient would prefer not to use any chemicals on her skin. c. Recommended instead then that she use tea tree oil. Discussed the chronic nature of tinea versicolor. d. Return to clinic here in five years. COPY: Chari Hester APRN documented in this encounter Plan of Treatment Upcoming Encounters Date Type Department Care Team (Late st Contact Info) Description 04/13/2024 2:00 PM EST Office Visit Dermatology at [address] [place] [address] Wan Wellington MD [address] [facility], [place] [address] documented as of this encounter Visit Diagnoses Diagnosis Tinea versicolor Pityriasis versicolor History of basal cell carcinoma Personal history of other malignant neoplasm of skin Nevus Benign neoplasm of skin, site unspecified documented in this encounter Care Teams Drug Abuse Counselor Relationship Specialty Start Date End Date Brigitte Almanza MD [address] [place] [address] PCP - General 08/19/14 12/29/18 documented as of this encounter
--- OUTSIDE RECORDS SUMMARY | 2023-10-08 01:17 | XMS_ITS | Encounter Summary ---
Author Organization [facility] Address [facility] [place] [address] Care Team Providers Care Potato Peeling Machine Operator Name Role Phone Romeo Crowley Juana DDS Primary Care Provider [phone] Encounter Details Date Type Department Care Team (Late st Contact Info) Description 03/21/2022 Telephone Dermatology at [address] [phone] Francia Suarez LPN Social History Tobacco Use Types Packs/Day Years [...] encounter Miscellaneous Notes * Telephone Encounter - Francia Suarez LPN - 03/21/2022 11:08 AM EST 03/12/22 Shave left lateral calf Bx: SCCA No further treatment necessary. Should schedule shave biopsy to remove other similar areas on her leg. Reviewed biopsy results with patient. She agrees a f/u appointment should be scheduled for other similar areas on her leg. Appointment scheduled. Voiced understanding. documented in this encounter Plan of Treatment Upcoming Encounters Date Type Department Care Team (Late st Contact Info) Description 04/13/2024 2:00 PM EST Office Visit Dermatology at [address] [phone] Wan Wellington MD [address] [facility] [address], [place] [address] documented as of this encounter Visit Diagnoses Not on filedocumented in this encounter Care Teams Potato Peeling Machine Operator Relationship Specialty Start Date End Date Romeo Crowley, DDS [address] [place] [address] PCP - General Dental Body Corporate Manager 12/30/18 2/ 3 documented as of this encounter
--- NOTE | 2023-10-08 06:45 | DI.US_ITS ---
Exam(s) US PELVIS TRANSVAGINAL EXAM: US PELVIS TRANSVAGINAL CLINICAL HISTORY: post menopausal bleeding,well exam,n95.0,z01.419. TECHNIQUE: Transabdominal and transvaginal pelvic ultrasound was performed using standard protocol. COMPARISON: US US PELVIS TRANSVAGINAL from 09/27/2021 FINDINGS: UTERUS: Position: Anteverted. Size: 8.8 long by 4.4 AP by 4.6 transverse cm Endometrium: 0.9 cm. Normal for patient's menstrual status. Myometrium: Unremarkable. Cervix: Cervical nabothian cysts are present. OVARIES: Right: 1.7 x 1.4 x 1.7 cm Cyst or mass: No suspicious cystic or solid masses. Left: 2.2 x 1.4 x 1.8 cm Cyst or mass: No suspicious cystic or solid masses. DOPPLER: Color: Symmetric and uniform flow to both ovaries. CUL-DE-SAC: Free fluid: None. Other: None. IMPRESSION: 1. Thickened endometrial stripe at 0.9 cm. 2. Unremarkable bilateral ovaries. DATA REPOSITORY:
--- NOTE | 2023-10-08 10:00 | DI.MAMMO_ITS ---
Exam(s) MAMMO SCREENING EXAM: MAMMO SCREENING CLINICAL HISTORY: screening TECHNIQUE: Bilateral full field digital CC and MLO mammographic images were obtained with 3D tomosyn thesis and utilizing computer aided detection (CAD). COMPARISON: Available for comparison. FINDINGS: Masses/Architectural Distortion: None seen. Microcalcifications: No suspicious pleomorphic-type are seen. Skin Thickening/Nipple Retraction: None. IMPRESSION: 1. No significant interval change with no specific features of malignancy noted. 2. Unless there is more urgent need, screening mammography is recommended, as per [employer] guidelines. BI-RADS Category 1 - Negative Breast Density - Category B - Scattered areas of fibroglandular density Breast density category C or D implies that the patient has dense breast tissue. Dense breast tissue is very common and is not abnormal but dense breast tissue can make it harder to find cancer on a ma mmogram. Also, dense breast tissue may increase their breast cancer risk. This information about the result of the mammogram report was provided to the patient to raise their awareness. Use this report when you speak with the patient about their risks for breast cancer, which includes their family hist ory. At that time, you may recommend for more screening tests (Ultrasound or MRI) as they might be us eful based on their risk. A negative radiographic report should not delay biopsy if a dominant or clinically suspicious mass is present. Up to ten percent of cancers are not identified on mammography. A negative report may reinforce clinical impression. Adenosis and dense breasts may obscure an underlying neoplasm. False positive reports average 6 to 10%. Patient will receive a letter notifying them of these results.
== END 2023-10-08 01:35 ==
PROVIDERS: PCP Nurse Practitioner Family; Visit Provider Obstetrics & Gynecology
DX: Z12.31 Encounter for screening mammogram for malignant neoplasm of breast (principal); N95.0 Postmenopausal bleeding; Z01.419 Encounter for gynecological examination (general) (routine) without abnormal findings
CPT/HCPCS: 77063; 77067; 76830; 76856

== ENCOUNTER 2023-11-03 14:55 | Outpatient (REF) | payer BC, SELFPAY ==
--- NOTE | 2023-11-03 14:40 | ENDOMET_PTH ---
PATIENT: Whitney Fam LOC: [facility] U#:[id number] AGE/SX: 63/F ROOM: RE11/03/[address]: Juliette Cates DO : 1960 BED: DIS: 11/03/2023 SPEC #: [id number] RECD: 11/03/23 18:23 STATUS: SOUMeaghan REQ #: [id number] SETH: 11/03/23 14:[address]: Juliette Cates DEPT: Surgical Specimen RECD BY: Xiomara Rees ENTERED: 11/03/23 18:24 SP TYPE: Endomet OTHR DR: Bernice Cheung Tissues: 1 - ENDOMETRIUM BX/LUCIANO Procedures: GROSS AND MICRO LEVEL 4 Comments: [id number]
== END 2023-11-03 14:56 | disposition home or self-care (01) ==
LOC: LBN 14:55
PROVIDERS: PCP Nurse Practitioner Family; Visit Provider Obstetrics & Gynecology
DX: N95.0 Postmenopausal bleeding (principal)
CPT/HCPCS: 88305

== ENCOUNTER 2023-11-06 10:05 | Outpatient (CLI) | payer BC, SELFPAY ==
[2023-11-06 09:36] LABS: HCT 40.3 % (36.0-46.0); HGB 13.1 g/dL (11.2-15.7); MCH 31.2 pg (27.0-33.0); MCHC 32.5 % (32.0-36.0); MCV 96 fL (80-95); MPV 9.7 fL (8.0-11.0); Platelet Count 220 10^3/uL (130-400); RDW 12.7 % (11.7-14.6); RDW-SD 45.1 fL; WBC 3.17 10^3/uL (4.4-10.8)
[2023-11-06 10:24] LABS: ALT 24 U/L (14-59); AST 14 U/L (15-37); Albumin 3.6 g/dL (3.4-5.0); Alkaline Phosphatase 64 U/L (46-116); Anion Gap 6.7 mmol/L (3-11); BUN 14 mg/dL (7-18); CO2 28.3 mmol/L (21.0-32.0); CREATININE 0.9 mg/dL (0.55-1.02); Calcium 8.4 mg/dL (8.5-10.1); Chloride 105 mmol/L (98-107); Estimated GFR 72.28 (mL/min/1.73m2); Glucose 95 mg/dL (74-106); Potassium 4.2 mmol/L (3.5-5.1); Sodium 140 mmol/L (136-145); Total Protein 6.5 g/dL (6.4-8.2)
[2023-11-08 16:01] LABS: Anaplasma phagocytophilum Negative (Negative); B. miyamotoi PCR Negative (Negative); Babesia divergens/MO-1 Negative (Negative); Babesia duncani Negative (Negative); Babesia microti Negative (Negative); Ehrlichia chaffeensis Negative (Negative); Ehrlichia ewingii/canis Negative (Negative); Ehrlichia muris eauclairensis Negative (Negative)
== END 2023-11-06 10:06 | disposition home or self-care (01) ==
LOC: LBO 10:05
PROVIDERS: PCP Nurse Practitioner Family; Visit Provider Nurse Practitioner Family
DX: Z00.00 Encounter for general adult medical examination without abnormal findings (principal); R53.83 Other fatigue
CPT/HCPCS: 36415; 80053; 85027; 87798; 86618

== ENCOUNTER 2023-11-13 21:30 | Outpatient (REF) | payer BC, SELFPAY ==
[2023-11-13 22:11] LABS: Abs Immature Grans 0.01 10^3/uL (0.0-0.06); Absolute Basophil Count 0.03 10^3/uL (0.0-0.2); Absolute Eosinophil Count 0.02 10^3/uL (0.0-0.7); Absolute Lymphocyte Count 1.57 10^3/uL (1.2-3.4); Absolute Monocyte Count 0.39 10^3/uL (0.1-0.8); Basophils % 0.7 %; Eosinophils % 0.5 %; HCT 42.3 % (36.0-46.0); Immature Grans % 0.2 %; Lymphocytes % 36.3 %; MCH 31.3 pg (27.0-33.0); MCHC 33.1 % (32.0-36.0); MCV 95 fL (80-95); MPV 10.5 fL (8.0-11.0); Neutrophils % 53.3 %; Platelet Count 249 10^3/uL (130-400); RBC 4.47 10^6/uL (3.93-5.22); RDW 11.9 % (11.7-14.6); RDW-SD 42.5 fL; WBC 4.32 10^3/uL (4.4-10.8)
[2023-11-17 10:22] LABS: Lyme Ab w Rflx to Lyme Confirm Negative (Negative)
[2023-11-17 11:47] LABS: IgA 112 mg/dL (85-499); Interpretation (See Note); Tissue Transglutaminase IgA <4.0 CU (<20.0)
== END 2023-11-13 21:31 | disposition home or self-care (01) ==
LOC: NCHCN 21:30
PROVIDERS: PCP Nurse Practitioner Family; Visit Provider Nurse Practitioner Family
DX: M25.561 Pain in right knee (principal); D72.819 Decreased white blood cell count, unspecified; R19.7 Diarrhea, unspecified
CPT/HCPCS: 82784; 83516; 85025; 86618

== ENCOUNTER 2023-12-12 00:28 | Outpatient (CLI) | payer BC, MEDICAID, SELFPAY ==
--- NOTE | 2023-12-12 08:47 | DI.RAD_ITS ---
Exam(s) XR KNEE LT 3V AP,LAT,JAGJIT EXAM: XR KNEE LT 3V AP,LAT,JAGJIT CLINICAL HISTORY: SUNSHINE KNEE PAIN, M25.562, LT KNEE PAIN. TECHNIQUE: 2D digital imaging was performed of the left knee. Three images were obtained. AP, late ral and PA tunnel views were obtained. COMPARISON: No exams were available for comparison FINDINGS: BONES: No acute fracture is present. No bony destructive lesion is seen. JOINTS: The knee is normally aligned. Small joint effusion. No loose body. SOFT TISSUE: Normal. IMPRESSION: Small joint effusion. DATA REPOSITORY: RADIATION DOSE DELIVERED:
--- NOTE | 2023-12-12 08:47 | DI.RAD_ITS ---
Exam(s) XR KNEE RT 3V AP,LAT,JAGJIT EXAM: XR KNEE RT 3V AP,LAT,JAGJIT CLINICAL HISTORY: PAIN SUNSHINE KNEES, M25.561, RT KNEE PAIN. TECHNIQUE: 2D digital imaging was performed of the right knee. Three views obtained. AP, lateral an d PA tunnel views were obtained. COMPARISON: No priors for comparison. FINDINGS: BONES: No acute fracture is present. No bony destructive lesion is seen. JOINTS: The knee is normally aligned. No joint effusion is seen. SOFT TISSUE: Normal. IMPRESSION: Unremarkable radiographs of the right knee. DATA REPOSITORY: RADIATION DOSE DELIVERED:
== END 2023-12-12 00:48 ==
LOC: DI 00:28
PROVIDERS: PCP Nurse Practitioner Family; Visit Provider Nurse Practitioner Family
DX: M25.561 Pain in right knee (principal); M25.562 Pain in left knee
CPT/HCPCS: 73562

== ENCOUNTER 2023-12-26 02:30 | Outpatient (CLI) | payer BC, MEDICAID, SELFPAY ==
--- OUTSIDE RECORDS SUMMARY | 2023-12-26 02:32 | XMS_ITS | Data Portability ---
Author Organization [facility], [facility] Address Narinder [place] [address] Assessment Encounter Date Assessment Date Assessment LastModified by Organization Details LastModified Time 11/13/2023 11/13/2023 The total time devoted to today's encounter, including both the bmql-yv-cknp time with the patient and/or family/caregi kevin and svv-nvzf-ll-f fawn time I personally spent is 60 minutes. [email or web address] Not available 11/13/2023 14:14:01 Plan of Treatment Reminders Order Date Submit Date Provider Last Modified By Organization Details Last Modified Time Details Appointments Annual Wellness Exam 40 2024 07:30A Dianne CHEUNG, Not available Not available Not available Lab celiac disease comprehen sive panel, serum 2023 024 [facility] ([facility]), [address] [place] [address] [place], [address], 11/18/2023 10:53:09 CBC w/ diff 2023 024 [facility] ([facility]), [address] [place] [address] [place], [address], 11/18/2023 10:52:48 lyme disease igg+igm, serum, reflex western blot 2023 024 [facility] (Registration ), [address] [place] [address] [place], [address], 11/18/2023 10:52:58 Referral gastroent erologist referral 2023 024 [facility], [address], [place], [address], 12/12/2023 11:30:50 Procedures None recorded. Surgeries None recorded. Imaging None recorded. Medication Orders clonazepa m 0.5 mg tablet 2023 024 [facility], [address], [place], [address], 11/13/2023 14:13:49 Patient TargetsNo targets recorded. Patient InstructionsNo instructions recorded. 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 Referral for Diarrhea Referring Physician: Reed Cheung, Family Medicine, Encounter Date: 11/13/2023 Results Created Date Observation Date Name Description Value Unit Range Abnormal Flag Note LastModifiedBy Organization Detail LastModifiedTime 11/06/1911/06/2023 COMPL ETE BLOOD COUNT NO DIFF WBC 3.17 10_3/ uL 4.4-10 .8 low Not Available [address] [facility] [place], [address] 11/06/2023 09:53:25 11/06/19 24 11/06/2023 COMPL ETE BLOOD COUNT NO DIFF RBC 4.20 10_6/ uL 3.93-5 .22 normal Not Available [address] [place], [address] 11/06/2023 09:53:25 11/06/1911/06/2023 COMPL ETE BLOOD COUNT NO DIFF HGB 13.1 g/dL 11.2-1 5.7 normal Not Available [address] [place], [address] 11/06/2023 09:53:25 11/06/1911/06/2023 COMPL ETE BLOOD COUNT NO DIFF HCT 40.3 % 36.0-4 6.0 normal Not Available [address] [place], [address] 11/06/2023 09:53:25 11/06/19 24 11/06/2023 COMPL ETE BLOOD COUNT NO DIFF MCV 96 fL 80-95 high Not Available Morena rouse [address] [place], [address] 11/06/2023 09:53:25 11/06/19 24 11/06/2023 COMPL ETE BLOOD COUNT NO DIFF MCH 31.2 pg 27.0-3 3.0 normal Not Available [address] [place], [address] 11/06/2023 09:53:25 11/06/19 24 11/06/2023 COMPL ETE BLOOD COUNT NO DIFF MCHC 32.5 % 32.0-3 6.0 normal Not Available [address] [place], [address] 11/06/2023 09:53:25 11/06/1911/06/2023 COMPL ETE BLOOD COUNT NO DIFF RDW 12.7 % 11.7-1 4.6 normal Not Available [address] [place], [address] 11/06/2023 09:53:25 11/06/19 24 11/06/2023 COMPL ETE BLOOD COUNT NO DIFF platelet count 220 10_3/ uL 130-40 0 normal Not Available [address] [place], [address] 11/06/2023 09:53:25 11/06/19 24 11/06/2023 COMPL ETE BLOOD COUNT NO DIFF MPV 9.7 fL 8.0-11 .0 normal Not Available [address] [place], [address] 11/06/2023 09:53:25 11/06/19 24 11/06/2023 COMPR EHENS CHARMAINE METAB OLIC PANEL calcium 8.4 mg/dL 8.5-10 .1 low Not Available [address] [place], [address] 11/06/2023 10:27:34 11/06/19 24 11/06/2023 COMPR EHENS CHARMAINE METAB OLIC PANEL glucose 95 mg/dL 74-106 normal Not Available Morena rouse [address] [place], [address] 11/06/2023 10:27:34 11/06/19 24 11/06/2023 COMPR EHENS CHARMAINE METAB OLIC PANEL BUN 14 mg/dL 7-18 normal Not Available Morena rouse [address] [place], [address] 11/06/2023 10:27:34 11/06/19 24 11/06/2023 COMPR EHENS CHARMAINE METAB OLIC PANEL creatinine 0.9 mg/dL 0.55-1 .02 normal Not Available [address] [place], [address] 11/06/2023 10:27:34 11/06/19 24 11/06/2023 COMPR EHENS CHARMAINE METAB OLIC PANEL estimated GFR 72.28 mL/min /1.73m 2 The eGFR is calcu lated from a serum creat inine using the CKD-E PI 2020 equat ion. Other varia bles requi red for the equat ion are gende r and age; this equat ion does not inclu de a race coeff icien t. This equat ion has simil ar overa ll perfo rmanc e to previ ous equat ions excep t value s may diffe r, in parti cular , in patie nts with highe r value s of eGFR and young er-ag ed adult s. Not Available [address] [place], [address] 11/06/2023 10:27:34 11/06/19 24 11/06/2023 COMPR EHENS CHARMAINE METAB OLIC PANEL total protein 6.5 g/dL 6.4-8. 2 normal Not Available [address] [place], [address] 11/06/2023 10:27:34 11/06/19 24 11/06/2023 COMPR EHENS CHARMAINE METAB OLIC PANEL albumin 3.6 g/dL 3.4-5. 0 normal Not Available [address] [place], [address] 11/06/2023 10:27:34 11/06/19 24 11/06/2023 COMPR EHENS CHARMAINE METAB OLIC PANEL bilirubin, total 0.70 mg/dL 0.2-1. 0 normal Not Available [address] [place], [address] 11/06/2023 10:27:34 11/06/19 24 11/06/2023 COMPR EHENS CHARMAINE METAB OLIC PANEL alk phos 64 U/L 46-116 normal Not Available [address] [place], [address] 11/06/2023 10:27:34 11/06/19 24 11/06/2023 COMPR EHENS CHARMAINE METAB OLIC PANEL sodium 140 mmol/ L 136-14 5 normal Not Available [address] [place], [address] 11/06/2023 10:27:34 11/06/19 24 11/06/2023 COMPR EHENS CHARMAINE METAB OLIC PANEL potassium 4.2 mmol/ L 3.5-5. 1 normal Not Available [address] [place], [address] 11/06/2023 10:27:34 11/06/19 24 11/06/2023 COMPR EHENS CHARMAINE METAB OLIC PANEL chloride 105 mmol/ L 98-107 normal Not Available [address] [place], [address] 11/06/2023 10:27:34 11/06/19 24 11/06/2023 COMPR EHENS CHARMAINE METAB OLIC PANEL CO2 28.3 mmol/ L 21.0-3 2.0 normal Not Available [address] [place], [address] 11/06/2023 10:27:34 11/06/19 24 11/06/2023 COMPR EHENS CHARMAINE METAB OLIC PANEL anion gap 6.7 mmol/ L 3-11 normal Not Available [address] [place], [address] 11/06/2023 10:27:34 11/06/19 24 11/06/2023 COMPR EHENS CHARMAINE METAB OLIC PANEL AST 14 U/L 15-37 low Not Available [address] [place], [address] 11/06/2023 10:27:34 11/06/19 24 11/06/2023 COMPR EHENS CHARMAINE METAB OLIC PANEL ALT 24 U/L 14-59 normal Not Available Morena rouse [address], [address] 11/06/2023 10:27:34 11/06/19 24 11/08/2023 TICK- BORNE DNA PANEL , PCR, B anaplasma phagocytophi lum Negati ve negati ve Not Available [address] [place], [address] 11/10/2023 09:01:26 11/06/19 24 11/08/2023 TICK- BORNE DNA PANEL , PCR, B ehrlichia chaffeensis Negati ve negati ve Not Available [address] [place], [address] 11/10/2023 09:01:26 11/06/19 24 11/08/2023 TICK- BORNE DNA PANEL , PCR, B ehrlichia ewingii/cani s Negati ve negati ve Not Available [address] [place], [address] 11/10/2023 09:01:26 11/06/19 24 11/08/2023 TICK- BORNE DNA PANEL , PCR, B ehrlichia muris eauclairensi s Negati ve negati ve ----- ----- ----- ----A DDITI ONAL INFOR MATIO N---- ----- ----- ----- This test was devel oped and its perfo rmanc e sho cteri stics deter mined by [facility] in a tammi r consi stent with ELIAZAR yates ts. This test has not been clear ed or appro eladio by the U.S. Food and Drug Admin istra tion. Not Available [address] [place], [address] 11/10/2023 09:01:26 11/06/19 24 11/08/2023 TICK- BORNE DNA PANEL , PCR, B babesia microti Negati ve negati ve Not Available [address] [place], [address] 11/10/2023 09:01:26 11/06/1911/08/2023 TICK- BORNE DNA PANEL , PCR, B babesia duncani Negati ve negati ve Not Available [address] [place], [address] 11/10/2023 09:01:26 11/06/1911/08/2023 TICK- BORNE DNA PANEL , PCR, B babesia divergens/MO -1 Negati ve negati ve ----- ----- ----- ----A DDITI ONAL INFOR MATIO N---- ----- ----- ----- This test was devel oped and its perfo rmanc e sho cteri stics deter mined by [facility] elizabeth in a tammi r consi stent with CLIA requi remen ts. This test has not been clear ed or appro eladio by the U.S. Food and Drug Admin istra tion. Not Available [address] [place], [address] 11/10/2023 09:01:26 11/06/1911/08/2023 TICK- BORNE DNA PANEL , PCR, B B. miyamotoi PCR Negati ve negati ve ----- ----- ----- ----A DDITI ONAL INFOR MATIO N---- ----- ----- ----- This test was devel oped and its perfo rmanc e sho cteri stics deter mined by [facility] in a tammi r consi stent with CLIA requi remen ts. This test has not been clear ed or appro eladio by the U.S. Food and Drug Admin istra tion. Test Perfo rmed by: [facility] el[facility] - [facility] [address] [address], [place] [address] Lab Direc tor: Trav Gamino nn Ph.D. ; CLIA# [id number] Not Available [address] [place], [address] 11/10/2023 09:01:26 11/13/1911/13/2023 COMPL ETE BLOOD COUNT W/DIF F WBC 4.32 10_3/ uL 4.4-10 .8 low Not Available [facility] ([facility]) [address] [place] [address] [place], [address], 11/13/2023 22:18:34 11/13/19 24 11/13/2023 COMPL ETE BLOOD COUNT W/DIF F RBC 4.47 10_6/ uL 3.93-5 .22 normal Not Available [facility] ([facility]) [address] [place] [address] [place], [address], 11/13/2023 22:18:34 11/13/19 24 11/13/2023 COMPL ETE BLOOD COUNT W/DIF F HGB 14.0 g/dL 11.2-1 5.7 normal Not Available [facility] ([facility]) [address] [place] [address] [place], [address], 11/13/2023 22:18:34 11/13/19 24 11/13/2023 COMPL ETE BLOOD COUNT W/DIF F HCT 42.3 % 36.0-4 6.0 normal Not Available [facility] ([facility]) [address] [place] [address] [place], [address], 11/13/2023 22:18:34 11/13/19 24 11/13/2023 COMPL ETE BLOOD COUNT W/DIF F MCV 95 fL 80-95 normal Not Available [facility] ([facility]) [address] [place] [address] [place], [address], 11/13/2023 22:18:34 11/13/19 24 11/13/2023 COMPL ETE BLOOD COUNT W/DIF F MCH 31.3 pg 27.0-3 3.0 normal Not Available [facility] ([facility]) [address] [place] [address] [place], [address], 11/13/2023 22:18:34 11/13/19 24 11/13/2023 COMPL ETE BLOOD COUNT W/DIF F MCHC 33.1 % 32.0-3 6.0 normal Not Available [facility] ([facility]) [address] [place] [address] [place], [address], 11/13/2023 22:18:34 11/13/19 24 11/13/2023 COMPL ETE BLOOD COUNT W/DIF F RDW 11.9 % 11.7-1 4.6 normal Not Available [facility] ([facility]) [address] [place] [address] [place], [address], 11/13/2023 22:18:34 11/13/19 24 11/13/2023 COMPL ETE BLOOD COUNT W/DIF F platelet count 249 10_3/ uL 130-40 0 normal Not Available [facility] ([facility]) [address] [place] [address] [place], [address], 11/13/2023 22:18:34 11/13/19 24 11/13/2023 COMPL ETE BLOOD COUNT W/DIF F MPV 10.5 fL 8.0-11 .0 normal Not Available [facility] ([facility]) [address] [place] [address] [place], [address], 11/13/2023 22:18:34 11/13/19 24 11/13/2023 COMPL ETE BLOOD COUNT W/DIF F neutrophils % 53.3 % Not Available [facility] ([facility]) [address] [place] [address] [place], [address], 11/13/2023 22:18:34 11/13/19 24 11/13/2023 COMPL ETE BLOOD COUNT W/DIF F lymphocytes % 36.3 % Not Available [facility] ([facility]) [address] [place] [address] [place], [address], 11/13/2023 22:18:34 11/13/19 24 11/13/2023 COMPL ETE BLOOD COUNT W/DIF F monocytes % 9.0 % Not Available [facility] ([facility]) [address] [place] [address] [place], [address], 11/13/2023 22:18:34 11/13/19 24 11/13/2023 COMPL ETE BLOOD COUNT W/DIF F eosinophils % 0.5 % Not Available [facility] ([facility]) [address] [place] [address] [place], [address], 11/13/2023 22:18:34 11/13/19 24 11/13/2023 COMPL ETE BLOOD COUNT W/DIF F basophils % 0.7 % Not Available [facility] ([facility]) [address] [place] [address] [place], [address], 11/13/2023 22:18:34 11/13/19 24 11/13/2023 COMPL ETE BLOOD COUNT W/DIF F immature grans % 0.2 % Not Available [facility] ([facility]) [address] [place] [address] [place], [address], 11/13/2023 22:18:34 11/13/19 24 11/13/2023 COMPL ETE BLOOD COUNT W/DIF F nucleated RBC 0.0 % 0.0-0. 3 normal Not Available [facility] ([facility]) [address] [place] [address] [place], [address], 11/13/2023 22:18:34 11/13/19 24 11/13/2023 COMPL ETE BLOOD COUNT W/DIF F absolute neutrophil count 2.30 10_3/ uL 1.2-6. 7 normal Not Available [facility] ([facility]) [address] [place] [address] [place], [address], 11/13/2023 22:18:34 11/13/19 24 11/13/2023 COMPL ETE BLOOD COUNT W/DIF F absolute lymphocyte count 1.57 10_3/ uL 1.2-3. 4 normal Not Available [facility] ([facility]) [address] [place] [address] [place], [address], 11/13/2023 22:18:34 11/13/19 24 11/13/2023 COMPL ETE BLOOD COUNT W/DIF F absolute monocyte count 0.39 10_3/ uL 0.1-0. 8 normal Not Available [facility] ([facility]) [address] [place] [address] [place], [address], 11/13/2023 22:18:34 11/13/19 24 11/13/2023 COMPL ETE BLOOD COUNT W/DIF F absolute eosinophil count 0.02 10_3/ uL 0.0-0. 7 normal Not Available [facility] ([facility]) [address] [place] [address] [place], [address], 11/13/2023 22:18:34 11/13/19 24 11/13/2023 COMPL ETE BLOOD COUNT W/DIF F absolute basophil count 0.03 10_3/ uL 0.0-0. 2 normal Not Available [facility] ([facility]) [address] [place] [address] [place], [address], 11/13/2023 22:18:34 11/13/19 24 11/17/2023 LYME AB W RFLX TO LYME CONFI RM lyme Ab W rflx to lyme confirm Negati ve negati ve Test perfo rmed or refer red by [facility] [address] [facility] [place] [address] Not Available [facility] (Registration ) [address] [place] [address] [place], [address], 11/17/2023 11:11:05 11/13/19 24 11/17/2023 SALOME C DISEA SE PANEL IgA 112 mg/dL 85-499 Not Available [facility] ([facility]) [address] [place] [address] [place], [address], 11/17/2023 11:55:00 11/13/19 24 11/17/2023 SALOME C DISEA SE PANEL tissue transglutami nase IgA <4.0 cu <20.0 A negat charmaine resul t may be due to IgA defic iency and does not rule out salome c disea se. E X09 E E X09 E Negat charmaine: <20.0 CU E X09 E E X09 E Weak Posit charmaine: 20.0- 30.0 CU E X09 E E X09 E Posit charmaine: >30.0 CU Resul ts were obtai akin with the Werfe n QUANT A Flash h-tTG IgA chemi lumin escen t immun oassa y. Value s obtai akin with diffe rent manuf actur ers' assay metho ds may not be used inter johnson eably . Not Available [facility] ([facility]) [address] [place] [address] [place], [address], 11/17/2023 11:55:00 11/13/19 24 11/17/2023 SALOME C DISEA SE PANEL interpretati on (See Note) Resul t: Negat charmaine Serol ogy. Salome c disea se unlik delmi. Appro ximat delmi 10% of patie nts with salome c disea se are seron egati ve. Patie nts who are alrea dy adher ing to a glute n-renetta e diet may also be seron egati ve. If salome c disea se is highl y clini magdalena suspe cted, refer ral to gastr oente rolog y for addit ional evalu ation is recom eliana zimmerman. Test perfo rmed or refer red by [facility] [address], [place] [address] Not Available [facility] ([facility]) [address] [place] [address] [place], [address], 11/17/2023 11:55:00 11/13/19 24 11/17/2023 LYME AB W RFLX TO LYME CONFI RM lyme Ab W rflx to lyme confirm Negati ve negati ve Test perfo rmed or refer red by [facility] [address] [place] [address] Not Available [address] [place], [address] 11/17/2023 11:55:00 11/10/19 24 12/28/2018 MAMMO [email or web address] No observ ation record ed. [email or web address] Not Available 11/09 04:25:03 11/10/19 24 03/06/2021 zahraa POWERS No observ ation record ed. [email or web address] Not Available 11/09 04:25:04 11/10/19 24 09/27/2021 imagi ng/di calderon tic resul t No observ ation record ed. [email or web address] Not Available 11/09 04:25:05 12/12/19 24 12/12/2023 x-ray imagi ng repor t Patien t Name: Bowen Burns Unit #: [id number] Loc: DI Orderi ng Provid er: Reed Cheung Accoun t #: [id number] Status : REG CLI Primar y Care Provid er: Reed Cheung Date of Exam: Sex: F Admiss ion Date: : 1960 Age: 63 Exam(s ) XR KNEE LT 3V AP,LAT ,JAGJIT EXAM: XR KNEE LT 3V AP,LAT ,JAGJIT CLINIC AL HISTOR Y: SUNSHINE KNEE PAIN, M25.56 2, LT KNEE PAIN. TECHNI QUE: 2D digita l imagin g was perfor med of the left knee. Three images were obtain ed. AP, latera l and PA tunnel views were obtain ed. COMPAR WINDY: No exams were availa ble for compar windy FINDIN GS: BONES: No acute fractu re is presen t. No bony destru ctive lesion is seen. JOINTS : The knee is normal ly aligne d. Small joint effusi on. No loose body. SOFT TISSUE : Normal . IMPRES HOWIE: Small joint effusi on. DATA REPOSI TORY: RADIAT ION DOSE DELIVE RED: Ordere d By: Reed Cheung CC: ------ ------ ------ ------ ------ ------ ------ ------ ------ ------ ------ ------ - Dictat ed By: Harpreet Cardenas M.D. 1613 Transc ribed By: Harpreet Cardenas 1613 This is privil eged, confid ential inform ation intend ed only for the provid er named. Any use or distri bution by any person other than this provid er is strict ly prohib ited. If you receiv e this report in error, please notify us immedi ately at [phone] and return the origin al report to us at the addres s above. Thank- you. [facility] [address], [place], [address] 12/17/2023 07:18:32 12/12/19 24 12/12/2023 x-ray imagi ng repor t Patien t Name: Bowen Burns Unit #: [id number] Loc: DI Orderi ng Provid er: Reed Cheung Accoun t #: [id number] Status : REG CLI Primar y Care Provid er: Reed Cheung Date of Exam: Sex: F Admiss ion Date: : 1960 Age: 63 Exam(s ) XR KNEE RT 3V AP,LAT ,JAGJIT EXAM: XR KNEE RT 3V AP,LAT ,JAGJIT CLINIC AL HISTOR Y: PAIN SUNSHINE KNEES, M25.56 1, RT KNEE PAIN. TECHNI QUE: 2D digita l imagin g was perfor med of the right knee. Three views obtain ed. AP, latera l and PA tunnel views were obtain ed. COMPAR WINDY: No priors for compar windy. FINDIN GS: BONES: No acute fractu re is presen t. No bony destru ctive lesion is seen. JOINTS : The knee is normal ly aligne d. No joint effusi on is seen. SOFT TISSUE : Normal . IMPRES HOWIE: Unrema rkable radiog raphs of the right knee. DATA REPOSI TORY: RADIAT ION DOSE DELIVE RED: Ordere d By: Reed Cheung CC: ------ ------ ------ ------ ------ ------ ------ ------ ------ ------ ------ ------ - Dictat ed By: Harpreet Cardenas M.D. 1615 Transc ribed By: Harpreet Cardenas 1615 This is privil eged, confid ential inform ation intend ed only for the provid er named. Any use or distri bution by any person other than this provid er is strict ly prohib ited. If you receiv e this report in error, please notify us immedi martina at and return the origin al report to us at the addres s above. Thank- you. [email or web address] [place] [id number] [place], [address] 12/17/2023 07:18:33 Result Notes None recorded. Problems Name Problem SNOMED Code Status Onset Date Resolution Date Notes Provider Name and Address Organization Details Recorded Time Polyp of colon 77998455 Active 2004 Problem Code: K63.5; Problem Code Type: ICD-10; Not Available [facility] 05:[facility]:00 Anxiety 59143956 Active 201101/04/20 20 - Comments only - Reed GOODMANP - Would like to restart wellbutr in (restart ed at 150 mg twice daily, patient tolerate d this dosing better than 300 mg dosing. She requests refill on benzodia zepine. We discusse d the risk of benzodia zepine therapy and she agrees to try buspiron e for episodes of increase d anxiety. Will start at 10 mg twice daily, she can increase up to 20 mg twice daily. She was encourag ed to titrate up slowly. Problem Code: F41.8; Problem Code Type: ICD-10; Not Available [facility] 3 05:32:01 Current drinker 261374 Completed 201010/26/2010 Not Available [facility] 3 05:32:01 Pitbetty is versicol or 58777009 Active 201410/30/19 19 - Comments only - Reed PEREZ - Occasion kasia gets tinea versicol or on her back, if not treated she states that it spreads. Question whether she has tinea versicol or appearin g on the upper back and central lower back at this time. Fluconaz ole refilled at 150 mg, take 2 tabs once weekly for 2 weeks. 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 Health Care [facility] TETANUS: 2012 CERVICAL CANCER SCREENIN G: normal pap in 2018, negative hpv. due 2023. MAMMOGRA M: cat 1 mammo in 2019- due 2020 COLONOSC OPY: normal colo in 2011- however has first degree relative family history, due 2016- ORDERED AT TODAY'S VISIT Problem Code: Z00.00; Problem Code Type: ICD-10; Not Available [facility] 3 05:32:01 Superfic ial pain on intercou rse 572976279 Active 201601/04/20 20 - Comments only - Reed PEREZ - Has tried topical estrogen in the past and stopped due to cost. She agrees to a gynecolo gy referral at today's visit. She would like to try oral estrogen , I am not willing due to age Problem Code: N94.11; Problem Code Type: ICD-10; Not Available [facility] 3 05:32:01 History of malignan t neoplasm of skin 910698661 Active 2022 Problem Code: Z85.828; Problem Code Type: ICD-10; Not Available [facility] 3 05:32:01 Anxiety disorder 104639553 Completed 201111/20/2022 12/30/19 19 - Comments only - Reed PEREZ - I think that clonazep am is certainl y appropri ate at this time. Will prescrib e 0.25 mg twice daily as needed for anxiety. Problem Code: F41.9; Problem Code Type: ICD-10; Not Available [facility] 3 05:32:01 Screenin g mammogra phy Completed 201608/20/2021 Problem Code: Z12.31; Problem Code Type: ICD-10; Not Available [facility] 3 05:32:02 Polyp of large intestin e 789700672 Completed 200411/20/2022 Not Available [facility] 3 05:32:02 Abnormal weight gain 888999939 Completed 201601/04/2020 Problem Code: R63.5; Problem Code Type: ICD-10; Not Available [facility] 3 05:32:02 Family history of genetic disorder carrier [id number] Completed 201808/20/2021 Problem Code: Z84.81; Problem Code Type: ICD-10; Not Available [facility] 3 05:32:02 Skin sensatio n disturba nce 99627842 Completed 201401/04/2020 Problem Code: R20.9; Problem Code Type: ICD-10; Not Available [facility] 3 05:32:02 Carpal tunnel syndrome of right wrist 50093543966 9108 Completed 201401/04/2020 Problem Code: G56.01; Problem Code Type: ICD-10; Not Available [facility] 3 05:32:02 Urinary tract infectio us disease 65851979 Completed 201901/04/2020 Problem Code: N39.0; Problem Code Type: ICD-10; Not Available [facility] 3 05:32:02 Hyperlip idemia screenin g Completed 201810/29/2018 Problem Code: Z13.220; Problem Code Type: ICD-10; Not Available [facility] 3 05:32:02 Disorder of skin and/or subcutan eous tissue 37033959 Completed 201411/20/2022 Problem Code: L98.9; Problem Code Type: ICD-10; Not Available [facility] 3 05:32:03 Screenin g for malignan t neoplasm of colon Completed 201908/20/2021 Problem Code: Z12.11; Problem Code Type: ICD-10; Not Available [facility] 3 05:32:03 Endometr ium thickene d 580628559 Active [address], [facility] [address] , [facility] 4 09:33:27 Postmeno pausal bleeding 23947790 Active 2023 Farzaneh Pollard [facility], [facility] 4 09:22:39 Pain of bilatera l knee joints 15390621464 4104 Active [address], [facility] [address] , [facility] 4 11:59:46 Leukopen ia 89484984 Active [address], [place] [address] , [facility] 4 12:04:15 Diarrhea 28420790 Active [address], [facility] [address] , [facility] 4 12:18:17 Atrophic vaginiti s 60498836 Active 2023 ANTONIO BRASWELL CMA null, [facility] 4 13:35:08 Problem Notes None recorded. Procedures Surgical History None recorded. Imaging Results Imaging Date Name Status LastModified by Organiz ation Details LastModified Time 12/28/2018 MAMMO, screening completed Information not available 11/10/2023 04:25:03 03/06/2021 MAMMO, screening completed Information not available 11/10/2023 04:25:04 09/27/2021 imaging/diagno stic result completed Information not available 11/10/2023 04:25:05 12/12/2023 x-ray imaging report completed [email or web address] [address] [place], [address] 12/17/2023 07:18:32 12/12/2023 x-ray imaging report completed [email or web address] [address] [place], [address] 12/17/2023 07:18:33 Procedure Notes None recorded. Medical Equipment None Reported. Allergies No known drug allergies Medications Name Sig Start Date Stop Date Status Note LastModified by Organization Details LastModified Time cyclobenzap rine 10 mg tablet Take 1 tablet by mouth every night as needed 10/21 completed Not Available Not Available Not Available trazodone 50 mg tablet 0.5-1 Tab at bedtime 01/17 completed Not Available Not Available Not Available Lidocaine Viscous 2 % mucosal solution apply every 3 hours 08/17 completed Not Available Not Available Not Available fluconazole 150 mg tablet TAKE 1 TABLET BY MOUTH NOW. REPEAT AGAIN IN 7 DAYS active Not Available Not Available No t Available Keflex 500 mg capsule Take 1 tab by mouth three times daily 10/12 completed Not Available Not Available Not Available fluconazole 200 mg tablet Take 1 tablet at a time as needed for rash exacerbat ions 12/29 completed Not Available Not Available Not Available clonazepam 0.5 mg tablet TAKE ONE-HALF TABLET BY MOUTH ONCE DAILY NEEDED active Not Available Not Available No t Available clonazepam 1 mg tablet 1 tab 1 07/23 completed Not Available Not Available Not Available lorazepam 0.5 mg tablet take one tab the evening prior to your surgeryl 11/12 completed Not Available Not Available Not Available estradiol 1 mg tablet TAKE 1 TABLET BY MOUTH DAILY 11/25 completed Not Available Not Available Not Available buspirone 10 mg tablet Take 1/2 tab by twice daily as needed 05/16 completed Not Available Not Available Not Available Effexor 37.5 mg tablet 1 TAB BID 03/27 completed Not Available Not Available Not Available estradiol 0.5 mg tablet Take 1 tablet every day by oral route. 2023 active Not Available Not Available Not Avai lable Retin-A 0.025 % topical gel APPLY QHS 12/05 completed Not Available Not Available Not Available progesteron e micronized 100 mg capsule TAKE 1 CAPSULE BY MOUTH DAILY active Not Available Not Available No t Available amoxicillin 875 mg-potassiu m clavulanate 125 mg tablet Take 1 tablet by mouth twice a day 10/31 completed Not Available Not Available Not Available Bactrim DS 800 mg-160 mg tablet Take 1 tablet by mouth every 12 hours 10/17 completed Not Available Not Available Not Available Vitamin-C 500 mg tablet 1 TAB BID 12/05 completed Not Available Not Available Not Available clonazepam 0.25 mg disintegrat ing tablet Take 1 tablet as needed for anxiety, up to twice daily. 01/03 completed Not Available Not Available Not Available Wellbutrin XL 150 mg 24 hr tablet, extended release Take 1 tablet by mouth daily for 2 weeks, then 1 tab by mouth every other day for 2 weeks then stop. 08/20 completed Not Available Not Available Not Available Wellbutrin XL 300 mg 24 hr tablet, extended release tAKE 1 TABLET DAILY 05/16 completed Not Available Not Available Not Available Campral 333 mg tablet,jesse yed release 1TAB tid 12/05 completed Not Available Not Available Not Available vit B complex with B12 and C qd 07/23 completed Not Available Not Available Not Available Fish Oil qd 07/23 completed Not Available Not Available Not Available Vitamin D qd 12/05 completed Not Available Not Available Not Available Vagifem 10 mcg vaginal tablet Insert 1 tab into vagina daily x 2 wks, then decrease to two times per wk therelance dipika 10/07 completed Not Available Not Available Not Available Vicodin 5 mg-300 mg tablet 1 TAB every six hours 08/17 completed Not Available Not Available Not Available selenium sulfide 2.5 % lotion active Not Available Not Available Not Available Vitals Date Recorded Body height Body mass index (BMI) Provider Name and Address Organization Details Last Updated DateTime 11/13/2023 170.81 cm 22.4 kg/m2 ANA GEORGE [address], [place], [address] 11/13/2023 12:01:22 Date Recorded Body weight Body temperature Oxygen saturation Oxygen saturation in Arterial blood by Pulse oximetry Heart rate Systolic blood pressure Diastolic blood pressure Provider Name and Address Organization Details Last Updated DateTime 4 18428.3 g 97.5 [degF] 99 % 99 % 75 /min 146 mm[Hg] 86 mm[Hg] ANTONIO BRASWELL CMA [facility] 11:47:38 Social History Question Answer Notes LastModified by Organizat ion Details LastModified Time Tobacco Smoking Status Former Smoker ANTONIO BRASWELL CMA [facility] 11/13/2023 11:48:10 When Did You Quit Smoking? 16+yearssinc elastcigaret te Information not available 11/13/2023 What Was The Date Of Your Most Recent Tobacco Screening? 11/13/2023 Information not available 11/13/2023 Do You Or Have You Ever Used Any Other Forms Of Tobacco Or Nicotine? No Information not available 11/13/2023 Sex: Female Functional Status None recorded. Mental Status None recorded. Family History Relationship Description Onset Age of this Age Resolved Age Notes LastModified by Organization Details LastModified Time Sister Family history of malignant neoplasm of skin [email or web address] Not available 2022 03:53:27 Notes:*Problem: MAYA BURNS CA:[id number] Mother passed from alzhemiers. Father alive 60's basel cell ca Colon cancer- mother in 50's Uterine cancer- maternal aunt,GM and cousinDementia- mother alcohol use-parents2 children Medical History No medical history recorded. Gynecological HistoryNo gynecological history recorded. Obstetrics History GPAL:G 0 P 0 0 0 0 Immunizations Vaccine Type Date Status Provider Name and Address Organization Details Recorded Time Tdap 08/20/2021 completed Not Available [facility] 06:06:28 Tdap 12/06/2011 completed Not Available [facility] 06:06:28 zoster recombinant 08/20/2021 completed Not Available [facility] 01/03/2023 06:06:28 COVID-19, mRNA, LNP-S, PF, 100 mcg/0.5mL dose or 50 mcg/0.25mL dose 08/20/2021 completed Not Available [facility] 01/04/20 06:06:28 SARS-COV-2 (COVID-19) vaccine, UNSPECIFIED 04/03/2020 completed Not Available [facility] 01/03/2023 06:06:28 SARS-COV-2 (COVID-19) vaccine, UNSPECIFIED 05/01/2020 completed Not Available [facility] 01/03/2023 06:06:28 Past Encounters Encounter ID Performer Location Encounter Start Date Encounter Closed Date Diagnosis/Indication Diagnosis SNOMED-CT Code Diagnosis ICD10 Code [id number] ANA GEORGE [address] [address] 11/13/2023 11:36:17 11/13/2023 13:00:57 Pain of bilateral knee joints 3896915551 80484 M25.561 Leukopenia 53105456 D72. 819 Diarrhea 56541723 R19.7 Anxiety 65758304 F41.9 Adult heal th examination 491157046 Z00.00 Health Concerns Section Related Observation LastModified by Organization Detai ls LastModified Time None Recorded Concern Status LastModified by Organization Details LastModified Time None Recorded Advance Directives Directive None Recorded Payers Encounter Date Sequence Insurance Name Policy Number Policy Miller Covered Member ID Miller Member ID Guarantor Name 11/13/2023 1 [place] [employer] [place] Whitney Burns [id number] Whitney Burns Notes Date Note Type Note Provider Name and Address Organization Details Recorded Time 11/13/2023 text/html HPI Notes: Fe caballero is here today for annual exam and to review necessary preventative care. The patient is a 63 year-old individual presenting with knee pain and diarrhea as the primary concerns. The knee pain has been ongoing for three weeks, exacerbated by motions like squatting or excessive use. She notes that when first noticing the discomfort her knees were very swollen. The patient reports chronic diarrhea for three and a half years, with episodes lasting up to four months. The diarrhea is sometimes uncontrollable, causing incontinence. The patient has adjusted their diet to manage symptoms, avoiding certain foods like sugar, eggs, citrus, and melon. Alcohol consumption, particularly beer and wine, exacerbates the diarrhea. She normally has 4-5 bowel movements daily, when her symptoms are severe she has bowel movements every 1/2-1 hour. The patient has a family history of colon cancer, GERD, and diverticulitis. She admits to worry about using alcohol to manage stress, although reports no more than 2 drinks a night, and does not drink nightly. She historically used 8 clonazepam over the course of 8 months, and is interested in a refill. She admits to a significant amount of stress, her sister is dying. REED CHEUNG, ANA [address], [place], [address], [facility]. 11/13/2023 14:15:18 OBGyn Episode No OBEpisode recorded.
--- OUTSIDE RECORDS SUMMARY | 2023-12-26 02:33 | XMS_ITS | Clinical Summary ---
Author Organization [facility] Address [address] [place] [address] Care Team Providers Care Chemical Production Technician Name Role Phone Bernice Cheung ANA Primary Care Provider [phone] Encounters Date Type Department Care Team Description 11/14/2023 Lab Requisition [facility] Pathology & Laboratory [address] [address] Outr Resulting Lab, Provider 11/04/2023 Lab Requisition [facility] Pathology & Laboratory [address] [address] Juliette Cates Encounter for other general examination from Last 3 Months Social History Tobacco Use Types Packs/Day Years [...] - 1-dose 60+ series) 2021 COVID-19 Vaccine ( season) 2023 Procedures Procedure Name Priority Date/Time Associated Diagnosis Comments HOLD SST Today 11/13/2023 13:32 EDT LYME AB Today 11/13/2023 13:32 EDT CELIAC DISEASE PANEL Today 11/13/2023 13:32 EDT SURGICAL PATHOLOGY Today 11/03/2023 14 :40 EDT Encounter for other general examination from Last 3 Months Results * CELIAC DISEASE PANEL (11/13/2023 13:32 EDT) Tissue Transglutaminase Antibody, IgA <4.0 <20.0 CU 11/17/2023 11:43 EDT [facility] Comment: A negative result may be due to IgA deficiency and does not rule out celiac disease. Negative: <20.0 CU Weak Positive: 20.0-30.0 CU Positive: >30.0 CU Results were obtained with the [employer] Flash h-tTG IgA chemiluminescent immunoassay. Values obtained with different manufacturers' assay methods may not be used interchangeably. IgA 112 85 - 499 mg/dL 11/17/2023 11:43 EDT [facility] Celiac Disease Interpretation Negative Serology. Celiac disease unlikely. Approximately 10% of patients with celiac disease are seronegative. Patients who are already adhering to a gluten-free diet may also be seronegative. If celiac disease is highly clinically suspected, referral to gastroenterology for additional evaluation is recommended. 11/17/2023 11:43 EDT [facility] Blood VENOUS BLOOD / Unknown 11/13/2023 13:32 EDT 11/14/2023 16:57 EDT Provider Outr Resulting Lab IMMUNOLOGY A ND SEROLOGY ORDERABLES Performing Organization Address City/[facility]/ZIP Co de Phone Number [facility] [address] [place] [address] * HOLD SST (11/13/2023 13:32 EDT) Hold Hold 11/14/2023 18:01 EDT [facility] Blood VENOUS BLOOD / Unknown 11/13/2023 13:32 EDT 11/14/2023 16:57 EDT Provider Outr Resulting Lab LAB INFO SER VICE AND SUPPORT & PHONE RESULT Performing Organization Address [facility]/ZIP Co de Phone Number [facility] [address] [place] [address] * LYME AB (11/13/2023 13:32 EDT) Lyme Ab Negative Negative 11/17/2023 10:18 EDT [facility] Blood VENOUS BLOOD / Unknown 11/13/2023 13:32 EDT 11/14/2023 16:57 EDT Provider Outr Resulting Lab IMMUNOLOGY A ND SEROLOGY ORDERABLES [facility] [address] [place], [place] [id number] * SURGICAL PATHOLOGY (11/03/2023 14:40 EDT) Note to Patient The following pathology results have been interpreted by your pathologist and may be available to you before your health provider has had the opportunity to review them. Please allow time for your provider to receive these results and explore management options, if applicable. 11/06/2023 9:17 [facility] Final Diagnosis A. ENDOMETRIUM, BIOPSY: - Inactive endometrium with tubal metaplasia. 11/06/2023 9:17 [facility] Attestation There was significant resident/fellow involvement in the diagnostic evaluation of this case. By the signature below, the attending physician certifies that they have personally conducted a gross and/or microscopic examination of the described specimens and rendered or confirmed the above diagnosis. 11/06/2023 9:17 [facility] at 0917 Clinical History Thickened endometrium 11/06/2023 9:17 [facility] Gross Description A. Received in formalin labelled with proper patient identification (initials B, R) and endometrium is an aggregate of briceño-brown soft tissue fragments with a small amount of admixed blood clot and mucus (0.8 x 0.4 x 0.2 cm). Entirely submitted in A1. LAVON BANG(ASCP) 11/04/2023 9:19 11/06/2023 9:17 [facility] Resident/Elier w: Nguyễn Dodson DO 11/06/2023 9:17 [facility] Performing Lab [facility] 11/06/2023 9:17 EDT [facility] Scanned Images 11/06/2023 9:17 EDT [facility] Tissue ENDOMETRIAL STRUCTURE / Unknown 11/03/2023 14:40 EDT 11/04/2023 7:59 EDT Juliette Cates PATHOLOGY ORDERABLES [facility] [address] [place] [address] from Last 3 Months Care Teams Chemical Production Technician Relationship Specialty Start Date End Date Bernice Cheung FNP [address] [place] [id number] PCP - General 10/25/21
--- OUTSIDE RECORDS SUMMARY | 2023-12-26 02:33 | XMS_ITS | Encounter Summary ---
Author Organization [facility] Address [address] [place] [address] Care Team Providers Care Varnish Melter Helper Name Role Phone Bernice Cheung ANA Primary Care Provider [phone] Encounter Details Date Type Department Care Team (Late st Contact Info) Description 11/04/[address] [facility] Pathology & Laboratory Medicine - [address] [address] Juliette Cates [address] [place] [address] [place] [address] Encounter for other general examination [...] Date/Time Associated Diagnosis Comments SURGICAL PATHOLOGY Today 11/03/2023 14 :40 EDT Encounter for other general examination documented in this encounter Results * SURGICAL PATHOLOGY (11/03/2023 14:40 EDT) Note to Patient The following pathology results have been interpreted by your pathologist and may be available to you before your health provider has had the opportunity to review them. Please allow time for your provider to receive these results and explore management options, if applicable. 11/06/2023 9:17 EDT [facility] Final Diagnosis A. ENDOMETRIUM, BIOPSY: - Inactive endometrium with tubal metaplasia. 11/06/2023 9:17 EDT [facility] Attestation There was significant resident/fellow involvement in the diagnostic evaluation of this case. By the signature below, the attending physician certifies that they have personally conducted a gross and/or microscopic examination of the described specimens and rendered or confirmed the above diagnosis. 11/06/2023 9:17 [facility] at 0917 Clinical History Thickened endometrium 11/06/2023 9:17 [facility] Gross Description A. Received in formalin labelled with proper patient identification (initials B, R) and endometrium is an aggregate of briceño-brown soft tissue fragments with a small amount of admixed blood clot and mucus (0.8 x 0.4 x 0.2 cm). Entirely submitted in A1. LAVON BANG(ASCP) 11/04/2023 9:19 11/06/2023 9:17 [facility] Resident/Elier w: Nguyễn Dodson DO 11/06/2023 9:17 [facility] Performing Lab [facility] 11/06/2023 9:17 [facility] Scanned Images 11/06/2023 9:17 [facility] Tissue ENDOMETRIAL STRUCTURE / Unknown 11/03/2023 14:40 EDT 11/04/2023 7:59 EDT Juliette Cates PATHOLOGY ORDERABLES [facility] [address] [place] [address] documented in this encounter Visit Diagnoses Diagnosis Encounter for other general examination documented in this encounter Care Teams Varnish Melter Helper Relationship Specialty Start Date End Date Bernice Cheung FNP [address] [facility] [address] [place] [phone] PCP - General 10/25/21 documented as of this encounter
--- OUTSIDE RECORDS SUMMARY | 2023-12-26 02:33 | XMS_ITS | Continuity of Care Document ---
Author Organization [facility] Address [address] [place] [address] Assessment Encounter Date Assessment Date Assessment LastModified by Organization Details LastModified Time 11/13/2023 11/13/2023 The total time devoted to today's encounter, including both the pqlt-dc-aybr time with the patient and/or family/caregi kevin and evf-zpac-hg-f fawn time I personally spent is 60 minutes. [email or web address] Not available 11/13/2023 14:14:01 Plan of Treatment Reminders Order Date Submit Date Provider Last Modified By Organization Details Last Modified Time Details Appointments Annual Wellness Exam 40 2024 07:30A M REED CHEUNG, Not available Not available Not available Lab celiac disease comprehen sive panel, serum 2023 024 [facility] ([facility]), [address] [place] [address] [place], [address], 11/18/2023 10:53:09 CBC w/ diff 2023 024 [facility] ([facility]), [address] [place] [address] [place], [address], 11/18/2023 10:52:48 lyme disease igg+igm, serum, reflex western blot 2023 024 [facility] (Registration ), [address] [place] [address] [place], [address], 11/18/2023 10:52:58 Referral gastroent erologist referral 2023 024 [facility], [address], [place], [address], 12/12/2023 11:30:50 Procedures None recorded. Surgeries None recorded. Imaging None recorded. Medication Orders clonazepa m 0.5 mg tablet 2023 024 [facility], [address] [facility], [place], [address], 11/13/2023 14:13:49 Patient TargetsNo targets recorded. Patient InstructionsNo instructions recorded. Reason for Referral Case Management Director Referral for Diarrhea Referring Physician: Reed Cheung, Family Medicine, Encounter Date: 11/13/2023 Results Created Date Observation Date Name Description Value Unit Range Abnormal Flag Note LastModifiedBy Organization Detail LastModifiedTime 11/10/1912/28/2018 MAMMO , scree julia No observ ation record ed. [email or web address] Not Available 11/09 04:25:03 11/10/19 24 03/06/2021 MAMMO , scree julia No observ ation record ed. [email or web address] Not Available 11/09 04:25:04 11/10/19 24 09/27/2021 imagi ng/michelle mancera tic resul t No observ ation record ed. [email or web address] Not Available 11/09 04:25:05 12/12/19 24 12/12/2023 x-ray imagi ng repor t Patidamaris t Name: Maya Fmaclara Emmanuel Unit #: [id number] Loc: DI Orderi ng Provid er: JonatanGelyy Accoun t #: [id number] Status : REG CLI Primar y [...] error, please notify us immedi ately at and return the origin al report to us at the addres s above. Thank- you. [facility] [address], [place], [address] 12/17/2023 07:18:32 12/12/1912/12/2023 x-ray imagi ng repor t Patien t Name: Bowen Fam Lien Unit #: [id number] Loc: DI Orderi ng Provid er: Reed Cheung Accoun t #: [id number] Status : REG CLI Primar y [...] - Dictat ed By: Harpreet Cardenas M.D. [id number] Transc ribed By: Harpreet Cardenas 1615 This is privil eged, confid ential inform ation intend ed only for the provid er named. Any use or distri bution by any person other than this provid er is strict ly prohib ited. If you receiv e this report in error, please notify us immedi ately at and return the origin al report to us at the addres s above. Thank- you. [email or web address] [facility] [address], [place], [address] 12/17/2023 07:18:33 Result Notes None recorded. Problems Name Problem SNOMED Code Status Onset Date Resolution Date Notes Provider Name and Address Organization Details Recorded Time Polyp of colon 21810331 Active 2004 Problem Code: K63.5; Problem Code Type: ICD-10; Not Available [facility] 3 05:32:00 Anxiety 55512230 Active 201101/04/20 20 - Comments only - Reed Young ANA - Would like to restart wellbutr in [...] F41.8; Problem Code Type: ICD-10; Not Available [facility] 3 05:32:01 Current drinker 265754 Completed 201010/26/2010 Not Available [facility] 3 05:32:01 Pityrias is versicol or 03491476 Active 201410/30/19 19 - Comments only - Reed Cheung ANA - Occasion ally gets tinea versicol or on her back, if not treated she states that it spreads. Question whether she has tinea versicol or appearin g on the upper back and central lower back at this time. Fluconaz ole refilled at 150 mg, take 2 tabs once weekly for 2 weeks. 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 [facility] 2011 CERVICAL CANCER SCREENIN G: normal pap in 2018, negative hpv. due 2023. 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 She agrees to a gynecolo gy referral at today's visit. She would like to try oral estrogen , I am not willing due to age Problem Code: N94.11; Problem Code Type: ICD-10; Not Available [facility] 3 05:32:01 History of malignan t neoplasm of skin 042165053 Active 2022 Problem Code: Z85.828; Problem Code Type: ICD-10; Not Available [facility] 3 05:32:01 Anxiety disorder 799312601 Completed 201111/20/2022 12/30/19 19 - Comments only - Reed Cheung ANA - I think that clonazep am is certainl y appropri ate at this time. Will prescrib e 0.25 mg twice daily as needed for anxiety. Problem Code: F41.9; Problem Code Type: ICD-10; Not Available [facility] 3 05:32:01 Screenin g mammogra phy Completed 201608/20/2021 Problem Code: Z12.31; Problem Code Type: ICD-10; Not Available [facility] 3 05:32:02 Polyp of large intestin e 938320261 Completed 200411/20/2022 Not Available [facility] 3 05:32:02 Abnormal weight gain 608801556 Completed 201601/04/2020 Problem Code: R63.5; Problem Code Type: ICD-10; Not Available [facility] 3 05:32:02 Family history of genetic disorder carrier 823138382 Completed 201808/20/2021 Problem Code: Z84.81; Problem Code Type: ICD-10; Not Available [facility] 3 05:32:02 Skin sensatio n disturba nce 19362710 Completed 201401/04/2020 Problem Code: R20.9; Problem Code Type: ICD-10; Not Available [facility] 3 05:32:02 Carpal tunnel syndrome of right wrist 68453558027 9108 Completed 201401/04/2020 Problem Code: G56.01; Problem Code Type: ICD-10; Not Available [facility] 3 05:32:02 Urinary tract infectio us disease 05084044 Completed 201901/04/2020 Problem Code: N39.0; Problem Code Type: ICD-10; Not Available [facility] 3 05:32:02 Hyperlip idemia screenin g Completed 201810/29/2018 Problem Code: Z13.220; Problem Code Type: ICD-10; Not Available [facility] 3 05:32:02 Disorder of skin and/or subcutan eous tissue 88409641 Completed 201411/20/2022 Problem Code: L98.9; Problem Code Type: ICD-10; Not Available [facility] 3 05:32:03 Screenin g for malignan t neoplasm of colon Completed 201908/20/2021 Problem Code: Z12.11; Problem Code Type: ICD-10; Not Available [facility] 3 05:32:03 Endometr ium thickene d 703373253 Active [address], [place], [address] , [facility] 4 09:33:27 Postmeno pausal bleeding 36435843 [facility] 4 09:22:39 Pain of bilatera l knee joints 06060603128 4104 Active [address], [place], [address] , [facility] 4 11:59:46 Leukopen ia 06631451 Active [address], [place], [address] , [facility] 4 12:04:15 Diarrhea 38169731 Active [address], [facility] [address] , [facility] 4 12:18:17 Atrophic vaginiti s 14062624 Active 2023 ANTONIO BRASWELL CMA null, [facility] 4 13:35:08 Problem Notes None recorded. Medical Equipment None Reported. [...] tablet TAKE 1 TABLET BY MOUTH DAILY 10/02 /2024 completed Not Available Not Available Not Available [...] lable Retin-A 0.025 % topical gel APPLY [facility] 12/05 completed Not Available Not Available Not [...] then decrease to two times per wk primo dipika 10/07 completed Not Available Not Available [...] 22.4 kg/m2 ANA GEORGE [address], [place], [address] 11/13/2023 12:01:22 Date Recorded Body weight Body temperature Oxygen saturation Oxygen saturation in Arterial blood by Pulse oximetry Heart rate Systolic blood pressure Diastolic blood pressure Provider Name and Address Organization Details Last Updated DateTime 4 91328.3 g 97.5 [degF] 99 % 99 % 75 /min 146 mm[Hg] 86 mm[Hg] ANTONIO BRASWELL CMA [facility] 4 11:47:38 Social History Question Answer Notes LastModified by Organizat ion Details LastModified Time Tobacco Smoking Status Former Smoker ANTONIO BRASWELL CMA null, [facility] 11/13/2023 11:48:10 When Did You Quit Smoking? [...] [email or web address] Not available 2022 03:53:27 Notes:*Problem: MAYA FAM CA:[id number] Mother passed from Phagenesis. Father alive 60's basel cell ca Colon cancer- mother in 50's Uterine cancer- maternal aunt,GM and cousinDementia- mother alcohol use-parents2 children Medical History No medical history recorded. Gynecological HistoryNo gynecological history recorded. Obstetrics History GPAL:G 0 P 0 0 0 0 Immunizations Vaccine Type Date Status Provider Name and Address Organization Details Recorded Time Tdap 08/20/2021 completed Not Available [facility] 06:06:28 Tdap 12/06/2011 completed Not Available [facility] 06:06:28 zoster recombinant 08/20/2021 completed Not Available [facility] 01/03/2023 06:06:28 COVID-19, mRNA, LNP-S, PF, 100 mcg/0.5mL dose or 50 mcg/0.25mL dose 08/20/2021 completed Not Available [facility] 01/04/20 06:06:28 SARS-COV-2 (COVID-19) vaccine, UNSPECIFIED 04/03/2020 completed Not Available [facility] 01/03/2023 06:06:28 SARS-COV-2 (COVID-19) vaccine, UNSPECIFIED 05/01/2020 completed Not Available [facility] 01/03/2023 06:06:28 Past Encounters Encounter ID Performer Location Encounter Start Date Encounter Closed Date Diagnosis/Indication Diagnosis SNOMED-CT Code Diagnosis ICD10 Code [id number] ANA GEORGE [address] [address] 11/13/2023 11:36:17 11/13/2023 13:00:57 Pain of bilateral knee joints 1766361421 95096 M25.561 Leukopenia 93271924 D72. 819 Diarrhea 05333155 R19.7 Anxiety 31688828 F41.9 Adult [facility] th examination 334734830 Z00.00 Health Concerns Section Related Observation LastModified by Organization Detai ls LastModified Time None Recorded Concern Status LastModified by Organization Details LastModified Time None Recorded Payers Encounter Date Sequence Insurance Name Policy Number Policy Miller Covered Member ID Miller Member ID Guarantor Name 11/13/2023 1 [place] [facility] Whitney Fam [id number] Whitney Fam Notes Date Note Type Note Provider Name [...] amount of stress, her sister is dying. ANA EGORGE [address], [place], [address], [facility]. 11/13/2023 14:15:18 OBGyn Episode No OBEpisode recorded.
--- OUTSIDE RECORDS SUMMARY | 2023-12-26 02:33 | XMS_ITS | Encounter Summary ---
Author Organization [facility] [place] [address] Care Team Providers Care Screen Maker Name Role Phone Jonatan Bernice RICK Primary Care Provider [phone] Reason for Visit * Reason Comments Annual Exam Encounter Details Date Type Department Care Team (Late st Contact Info) Description 04/01/2023 3:45 PM EST Office Visit Dermatology at [address] [phone] Wan Wellington MD [address] [facility], [place] [address] History of basal cell carcinoma; History of [...] 2:00 PM EST Office Visit Dermatology at [place] [address] [place] [address] Wan Wellington MD [address] [facility], [place] [address] documented as of this encounter Visit Diagnoses Diagnosis History of basal cell carcinoma Personal history of other malignant neoplasm of skin History of SCC (squamous cell carcinoma) of skin Personal history of other malignant neoplasm of skin documented in this encounter Care Teams Screen Maker Relationship Specialty Start Date End Date Bernice Cheung APRN [address] [place] [address] PCP - General Family Medicine 04/01/22 documented as of this encounter
--- OUTSIDE RECORDS SUMMARY | 2023-12-26 02:33 | XMS_ITS | Encounter Summary ---
Author Organization [facility] Address [address] [place] [address] Care Team Providers Care Malt Roaster Name Role Phone Unavailable Primary Care Provider Unavailabl e Encounter Details Date Type Department Care Team (Late st Contact Info) Description 08/09/2013 Results Only [facility] Laboratory Services - [facility] [address] [place] [phone] Yessi Valles, SHARLENE Social History Tobacco Use [...] ? RAY FAM ? Accession #: ? [id number] ? : ? 1960 (Age: 53) ??F [...] types 16,18,31,33,35, 39,45,51,52,56,58, 59,66, and 68 by blasting worker mediated amplification. Comments Document reviewed and electronically signed by: ? System Interface ? Report date: 08/17/2013 By the signature above, the attending physician certifies that he/she has personally conducted a gross and/or microscopic examination of the described specimens and rendered or confirmed the above diagnosis. End of Report [facility] 08/09/2013 08/10/2013 Yessi Valles NP PATHOLOGY ORDERABLES [facility] [address] [place] [address] documented in this encounter Visit Diagnoses Not on filedocumented in this encounter
--- OUTSIDE RECORDS SUMMARY | 2023-12-26 02:33 | XMS_ITS | Encounter Summary ---
Author Organization [facility] Address [address] [place] [address] Care Team Providers Care Boiler Technician Name Role Phone Unavailable Primary Care Provider Unavailabl e Encounter Details Date Type Department Care Team (Late st Contact Info) Description 12/06/2011 Results Only [facility] Laboratory Services - [facility] ([facility] [address] [place] [address] [phone] Brigitte Almanza MD Social History Tobacco Use Types Packs/Day Years [...] ? RAY FAM ? Accession #: ? [id number] ? : ? 1960 (Age: 51) ??F [...] types 16,18,31,33,35, 39,45,51,52,56,58, 59,66, and 68 by limerock tower loader mediated amplification. Comments Document reviewed and electronically signed by: ? System Interface ? Report date: 12/18/2011 By the signature above, the attending physician certifies that he/she has personally conducted a gross and/or microscopic examination of the described specimens and rendered or confirmed the above diagnosis. End of Report [facility] 12/06/2011 12/10/2011 Brigitte Almanza MD PATHOLOGY ORDERABLES [facility] [address] [place] [address] documented in this encounter Visit Diagnoses Not on filedocumented in this encounter
--- OUTSIDE RECORDS SUMMARY | 2023-12-26 02:33 | XMS_ITS | Encounter Summary ---
Author Organization [facility] Address [address] [place] [address] Care Team Providers Care Recooperer Name Role Phone Bernice Cheung ANA Primary Care Provider [phone] Encounter Details Date Type Department Care Team (Late st Contact Info) Description 10/26/2021 Lab Requisition [facility] Pathology & Laboratory Medicine - [address] [address] Juliette Cates [address] [place] [address] [place] [address] Encounter for other general examination [...] management options, if applicable. 11/06/2021 19:22 EDT [facility] Final Diagnosis A. ENDOMETRIUM, BIOPSY: - Superficial strips of inactive endometrium with tubal metaplasia. - Scant fragments of benign endocervical tissue. 11/06/2021 19:22 EDT [facility] Attestation There was significant resident/fellow involvement in the diagnostic evaluation of this case. By the signature below, the attending physician certifies that they have personally conducted a gross and/or microscopic examination of the described specimens and rendered or confirmed the above diagnosis. 11/06/2021 19:22 EDT [facility] at [address] Clinical History Postmenopausal bleeding 11/06/2021 19:22 EDT [facility] Gross Description A. Received in formalin labelled with proper patient identification (initials B, R) and endometrial Bx is an aggregate of translucent mucus (1.3 x 0.9 x 0.1 cm). Entirely submitted in A1. RAY HARRISON 10/26/2021 10:50 11/06/2021 19:22 EDT [facility] Resident/Elier w: Nguyễn Borjas MD 11/06/2021 19:22 EDT [facility] Performing Lab [facility] 11/06/2021 19:22 EDT [facility] Scanned Images 11/06/2021 19:22 T [facility] Tissue ENTIRE ENDOMETRIUM / Unknown 10/25/2021 16:00 EDT 10/26/2021 9:26 EDT Juliette Cates PATHOLOGY ORDERABLES [facility] [address] [place] [address] documented in this encounter Visit Diagnoses Diagnosis Encounter for other general examination documented in this encounter Care Teams Recooperer Relationship Specialty Start Date End Date Bernice Cheung FNP [address] [facility] [address] [place] [phone] PCP - General 10/25/21 documented as of this encounter
--- OUTSIDE RECORDS SUMMARY | 2023-12-26 02:33 | XMS_ITS | Encounter Summary ---
Author Organization [facility] Address [address] [place] [address] Care Team Providers Care Beer Coil Cleaner Name Role Phone Bernice Cheung ANA Primary Care Provider [phone] Encounter Details Date Type Department Care Team (Late st Contact Info) Description 02/07/2020 Lab Requisition [facility] Pathology & Laboratory Medicine - [address] [id number] Outr Resulting Lab, Provider Social History Tobacco [...] Outr Resulting Lab MICROBIOLOGY - GENERAL ORDERABLES [facility] [address] [place] [address] * COVID-19 TESTING (02/07/2020 9:21 EST) COVID-19 rt-PCR Result Negative Negative 02/08/2020 20:55 EST [facility] Comment: This test has not [...] history, and epidemiological information. Performed on the Snapvine Fusion instrument Performing Lab [place] [facility] 02/08/2020 20:55 EST [facility] Swab 02/07/2020 9:21 EST 02/07/2020 15:37 EST Provider Outr Resulting Lab MICROBIOLOGY - GENERAL ORDERABLES [facility] [address] [place] [address] documented in this encounter Visit Diagnoses Not on filedocumented in this encounter Care Teams Beer Coil Cleaner Relationship Specialty Start Date End Date Bernice Cheung FNP [address] [place] [address] [address] [place] [address] PCP - General 10/25/21 documented as of this encounter
--- OUTSIDE RECORDS SUMMARY | 2023-12-26 02:33 | XMS_ITS | Encounter Summary ---
Author Organization [facility] [place] [address] Care Team Providers Care Seafood Specialist Name Role Phone Bernice Cheung APRN Primary Care Provider [phone] Encounter Details Date Type Department Care Team (Latest Contact Info) Description 04/01/2023 10:14 PM EST - 04/01/2023 11:59 PM EST Hospital [place] [phone] Discharge Disposition: Home Social History Tobacco Use [...] PM EST Office Visit Dermatology at [address] [phone] Wan Wellington MD [address] [place] [address] documented as of this encounter Procedures Procedure Name Priority Date/Time Associated Diagnosis Comments SURGICAL PATHOLOGY REPORT Routine 04/01/2023 4:10 PM EST documented in this encounter Results * (ABNORMAL) Surgical Pathology Report (04/01/2023 4:10 PM EST) Final Diagnosis [id number] ? Location: [facility] The signing pathologist has [...] Verified: ??04/08/2023 12:22 ??Dermatopatholo gist Performed at: ??-[facility] Dept. of Pathology, [place] [address] Intake Rn: Nacho Tamayo MD, AP, ??CLIA Certificate: [id number] DISCUSSION THIS RESULT REQUIRES PHYSICIAN/A.P.P. FOLLOW UP [...] labeled A1. ??pps(A) 04/08/2023 12:22 PM EST [facility] SPECIMEN FROM SKIN / Unknown 04/01/2023 4:10 PM EST 04/01/2023 4:10 PM EST Wan Wellington MD PATHOLOGY/CYTOLOGY O SIMBA Performing Organization Address City/State/[facility] Co de Phone Number [facility] [place] [phone] [facility] [place] [address] documented in this encounter Visit Diagnoses Not on filedocumented in this encounter Care Teams Seafood Specialist Relationship Specialty Start Date End Date Bernice Cheung APRN [address] [place] [address] PCP - General Family Medicine 04/01/22 documented as of this encounter
--- OUTSIDE RECORDS SUMMARY | 2023-12-26 02:33 | XMS_ITS | Encounter Summary ---
Author Organization [facility] Address [address] [place] [address] Care Team Providers Care Generator Switchboard Operator Name Role Phone Unavailable Primary Care Provider Unavailabl e Encounter Details Date Type Department Care Team (Late st Contact Info) Description 04/26/2005 Results Only [facility] Family Medicine - [address] [address] Brigitte Almanza MD Social History Tobacco Use [...] reading/interpreti ng unformatted reports. Name: ? RAY FMA ? Accession #: ? [id number] : ? 1960 (Age: 44) ??F ?Collect Date: ? 04/26/2005 Location: ? [facility] ? Receive Date: ? 04/30/2005 Provider: ?BRIGITTE ALMANZA MD Copy to: ? Specimen/Source: ?ThinPrep Pap Test, Endocervix, processed on Simplify ThinPrep Imaging System, with manual evaluation Last [...] 04/26/2005 04/30/2005 Brigitte Almanza MD PATHOLOGY ORDERABLES [facility] [address] [place] [address] documented in this encounter Visit Diagnoses Not on filedocumented in this encounter
--- OUTSIDE RECORDS SUMMARY | 2023-12-26 02:33 | XMS_ITS | Encounter Summary ---
Author Organization [facility] Address [address] [place] [address] Care Team Providers Care Travel Nurse Name Role Phone Bernice Cheung ANA Primary Care Provider [phone] Encounter Details Date Type Department Care Team (Late st Contact Info) Description 08/21/2021 Lab Requisition [facility] Pathology & Laboratory Medicine - [address] [address] Juliette Cates [address] [place] [address] [place] [address] Encounter for other general examination [...] types, PCR Negative Negative 08/25/2021 7:55 EDT [facility] Comment:No E6 or E7 mRNA is detected from HPV types 16,18,31,33,35,39,45,51,52,56,58,59,66, and 68 by public service director mediated amplification. Papanicolaou smear specimen (specimen) CERVIX UTERI STRUCTURE / Unknown 08/20/2021 10:20 EDT 08/23/2021 11:00 EDT Juliette Cates MICROBIOLOGY - GENER AL ORDERABLES [facility] [address] [place] [address] * PAP TEST (08/20/2021 10:20 EDT) Specimens A. Cervix and/or Endocervix , ThinPrep Imaging System with Manual Evaluation 08/25/2021 7:55 EDT [facility] Specimen Adequacy Satisfactory for Evaluation - transformation zone component present 08/25/2021 7:55 EDT [facility] General Categorization Negative for intraepithelial lesion or malignancy 08/25/2021 7:55 EDT [facility] Attestation . 08/25/2021 7:55 T [facility] at 0755 Clinical History See below 08/26/19 7:55 T [facility] HPV The result for the Human Papillomavirus (HPV) Detection-High Risk Types is Negative. No E6 or E7 mRNA is detected from HPV types 16,18,31,33,35,39 ,45,51,52,56,58,5 9,66, and 68 by public service director mediated amplification.Amanda ting was performed on specimen [id number] and was resulted on 08/25/2021 0753 EDT by SHO, LAB INSTRUMENT RESULTS IN 08/25/2021 7:55 EDT [facility] Performing Lab [facility] 08/25/2021 7:55 EDT [facility] Scanned Images 08/25/2021 7:55 EDT [facility] Papanicolaou smear specimen (specimen) CERVIX UTERI STRUCTURE / Unknown 08/20/2021 10:20 EDT 08/21/2021 15:49 EDT Juliette Cates PATHOLOGY ORDERABLES [facility] [address] [place] [address] documented in this encounter Visit Diagnoses Diagnosis Encounter for other general examination documented in this encounter Care Teams Travel Nurse Relationship Specialty Start Date End Date Bernice Cheung FNP [address] [facility] [address] [place] [phone] PCP - General 10/25/21 documented as of this encounter
--- OUTSIDE RECORDS SUMMARY | 2023-12-26 02:33 | XMS_ITS | Encounter Summary ---
Author Organization [facility] Address [address] [place] [address] Care Team Providers Care Environmental Technology Professor Name Role Phone Unavailable Primary Care Provider Unavailabl e Encounter Details Date Type Department Care Team (Late st Contact Info) Description 01/09/2004 Results Only [facility] conversion [address] [place] [address] Amrik Trivedi MD [address] [place] [id number] Social History Tobacco Use Types Packs/Day Years [...] ? FAM RAY ? Accession #: ? [id number] ? : ? 1960 (Age: 43) ??F [...] MD PATHOLOGY ORDERABLE S SHARRON MURPHY [address] [place] [address] documented in this encounter Visit Diagnoses Not on filedocumented in this encounter
--- OUTSIDE RECORDS SUMMARY | 2023-12-26 02:33 | XMS_ITS | Encounter Summary ---
Author Organization [facility] [place] [address] Care Team Providers Care Manufacturing Process Technician Name Role Phone Bernice Cheung APRN Primary Care Provider [phone] Encounter Details Date Type Department Care Team (Late st Contact Info) Description 04/01/2023 Refill Dermatology at [address] [phone] Alla Guillen RN Social History Tobacco Use [...] 2:00 PM EST Office Visit Dermatology at [address] [phone] Wan Wellington MD [address] [place] [address], [place] [address] documented as of this encounter Visit Diagnoses Not on filedocumented in this encounter Care Teams Manufacturing Process Technician Relationship Specialty Start Date End Date Bernice Cheung APRN [address] [place] [address] PCP - General Family Medicine 04/01/22 documented as of this encounter
--- OUTSIDE RECORDS SUMMARY | 2023-12-26 02:33 | XMS_ITS | Clinical Summary ---
Author Organization [facility] Address [facility] [place] [address] Care Team Providers Care Demand Manager Name Role Phone Bernice Cheung APRN Primary Care Provider [phone] Allergies No known active allergies Medications Medication [...] Trivalent w/Preservative 03/03/2012 Meningococcal Conjugate 03/03/2012 Tdap (Adacel, Boostrix) 12/06/2011 Yellow Fever Vaccine 03/03/2012 Family History [...] 2:00 PM EST Office Visit Dermatology at [place] [address] [place] [phone] Wan Wellington MD [address], [place] [address] Health Maintenance Due Date Last Done Comments CT Colonography 1960 Colonoscopy 1960 Colorectal Cancer Screening 1960 FIT DNA 1960 FIT 1960 Sigmoidoscopy (10 year) with FIT yearly 1960 Sigmoidoscopy 1960 HIV screen 07/15/1979 Hepatitis C Screening 07/15/1979 HPV test 07/15/1991 PAP Smear 07/15/1991 Breast Cancer Share Decision Needed 2001 Breast Cancer screening 2001 Zoster vaccine (1 of 2) 07/15/2011 Advance Directive 2016 Tetanus/Diphtheria/Pertussis Vaccines (2 - Td or Tdap) 12/05/2021 12/06/2011 Covid-19 Vaccine (1 - season) 2023 Influenza (Flu) vaccine (1 o f 1 - Influenza standard series) 10/26/2023 03/03/2012 Advance Directives * Full Code (Latest Code Status on File) Date Activated Date Inactivated Comments 03/03/2015 2:50 PM 03/03/2015 6:33 PM Question Answer Comments Does patient have capacity to make decision: Yes * Full Code Date Activated Date Inactivated Comments 02/07/2015 1:31 PM 02/07/2015 6:50 PM Question Answer Comments Does patient have capacity to make decision: Yes Care Teams Demand Manager Relationship Specialty Start Date End Date Bernice Cheung APRN [address] [place] [address] PCP - General Family Medicine 04/01/22
--- OUTSIDE RECORDS SUMMARY | 2023-12-26 02:33 | XMS_ITS | Encounter Summary ---
Author Organization [facility] Address [address] [place] [address] Care Team Providers Care Respiratory Services Manager Name Role Phone Bernice Cheung ANA Primary Care Provider [phone] Encounter Details Date Type Department Care Team (Late st Contact Info) Description 02/29/2020 Lab Requisition [facility] Pathology & Laboratory Medicine - [address] [address] Outr Resulting Lab, Provider Social History Tobacco [...] Priority Date/Time Associated Diagnosis Comments ZZCOVID-19 TEST [facility] PCR Today 02/29/2020 8:45 EST COVID-19 TESTING Routine 02/29/2020 8:45 EST documented in this encounter Results * COVID-19 TEST [facility] PCR (02/29/2020 8:45 EST) Swab ENTIRE NASOPHARYNX / Unknown 02/29/2020 8:45 EST 02/29/2020 15:54 EST Provider Outr Resulting Lab MICROBIOLOGY - GENERAL ORDERABLES [facility] [address] [place] [address] * COVID-19 TESTING (02/29/2020 8:45 EST) COVID-19 rt-PCR Result Negative Negative 03/01/2020 19:22 EST [facility] Comment: Negative results do not preclude 2019-nCoV infection and should not be used as the sole basis for treatment or other patient management decisions. Negative results must be combined with clinical observations, patient history, and epidemiological information. This test was developed and its performance characteristics determined by [facility]. It has not been cleared [...] testing. This test is based on the [facility] COVID-19 Emergency Use Authorization (EUA) assay, with minor modification as defined by the FDA Performed on the evolso 7 Flex. Performing Lab [facility] 03/01/2020 19:22 EST [facility] Swab 02/29/2020 8:45 EST 02/29/2020 15:54 EST Provider Outr Resulting Lab MICROBIOLOGY - GENERAL ORDERABLES [facility] [address] [place] [address] documented in this encounter Visit Diagnoses Not on filedocumented in this encounter Care Teams Respiratory Services Manager Relationship Specialty Start Date End Date Bernice Cheung FNP [address] [place] [address] [address] [place] [phone] PCP - General 10/25/21 documented as of this encounter
--- OUTSIDE RECORDS SUMMARY | 2023-12-26 02:33 | XMS_ITS | Encounter Summary ---
Author Organization [facility] Address [facility] [place] [address] Care Team Providers Care Utility Tractor Operator Name Role Phone Bernice Cheung RICK Primary Care Provider [phone] Encounter Details Date Type Department Care Team (Late st Contact Info) Description 04/09/2022 Telephone Dermatology at [address] [phone] Alla Guillen RN Social History [...] 2:00 PM EST Office Visit Dermatology at [address] [phone] Wan Wellington MD [address] [place] [address] RD, [place] [address] documented as of this encounter Visit Diagnoses Not on filedocumented in this encounter Care Teams Utility Tractor Operator Relationship Specialty Start Date End Date Bernice Cheung APRN [address] [place] [address] PCP - General Family Medicine 04/01/22 documented as of this encounter
--- OUTSIDE RECORDS SUMMARY | 2023-12-26 02:33 | XMS_ITS | Encounter Summary ---
Author Organization [facility] Address [facility] [address] Care Team Providers Care Petrology Teacher Name Role Phone Jonatan Bernice RICK Primary Care Provider [phone] Encounter Details Date Type Department Care Team (Late Contact Info) Description 04/08/2023 Telephone Dermatology at [address] [address] Alla Guillen RN Social History [...] 2:00 PM EST Office Visit Dermatology at [place] [address] [place] [address] Wan Wellington MD [address], [place] [address] documented as of this encounter Visit Diagnoses Not on filedocumented in this encounter Care Teams Petrology Teacher Relationship Specialty Start Date End Date Bernice Cheung APRN [address] [place] [address] PCP - General Family Medicine 04/01/22 documented as of this encounter
--- OUTSIDE RECORDS SUMMARY | 2023-12-26 02:33 | XMS_ITS | Encounter Summary ---
Author Organization [facility] Address [address] [place] [address] Care Team Providers Care Mold Yarn Supervisor Name Role Phone Unavailable Primary Care Provider Unavailabl e Encounter Details Date Type Department Care Team (Late st Contact Info) Description 01/11/2009 Orders Only [facility] Medicine [address] [address] Brigitte Almanza MD Social History Tobacco Use [...] ? KATY, RAY ? Accession #: ? [id number] ? : ? 1960 (Age: 48) ??F [...] 01/11/2009 01/12/2009 Brigitte Almanza MD PATHOLOGY ORDERABLES Performing Organization Address City/State/[facility] Co de Phone Number SHARRON MURPHY [address] [place] [address] documented in this encounter Visit Diagnoses Not on filedocumented in this encounter
--- OUTSIDE RECORDS SUMMARY | 2023-12-26 02:33 | XMS_ITS | Encounter Summary ---
Author Organization [facility] Address [address] [place] [address] Care Team Providers Care Road Traffic Controller Name Role Phone Unavailable Primary Care Provider Unavailabl e Encounter Details Date Type Department Care Team (Late st Contact Info) Description 10/29/2018 Results Only [facility] [phone] Reed Cheung FNP [address] [facility] [address] [place] [address] Social History Tobacco Use Types [...] ? RAY FAM ? Accession #: ? [id number] ? : ? 1960 (Age: 58) ??F ?Collect Date: ? 10/29/2018 ? Location: ? [facility] ? Receive Date: ? 11/02/2018 ? Provider: REED CHEUNG CRM ADMINISTRATOR Copy to: ? Final Report SPECIMEN ADEQUACY [...] types 16,18,31,33,35, 39,45,51,52,56,58, 59,66, and 68 by websphere process server developer mediated amplification. Comments Document reviewed and electronically signed by: ? System Interface ? Report date: 11/06/2018 By the signature above, the attending physician certifies that he/she has personally conducted a gross and/or microscopic examination of the described specimens and rendered or confirmed the above diagnosis. End of Report [facility] 10/29/2018 11/02/2018 Reed Cheung CRM ADMINISTRATOR PATHOLOGY ORDERABLES [facility] [address] [place] [address] documented in this encounter Visit Diagnoses Not on filedocumented in this encounter
--- OUTSIDE RECORDS SUMMARY | 2023-12-26 02:33 | XMS_ITS ---
Author Organization Unknown Address [address] [place] [phone] Phone Care Team Providers Care Rn Provider Relations Name Role Phone MARGOT CUEVAS Registered Nurse Unavailable SERA Portillo Attending Unavailable UNLISTED PROVIDER - REQUESTED Xhandoff Un available Social History Type Status Start Date End Date Code Code Syst em Smoking History Unknown if ever smoked [address] Sex Female Vital Signs Vital Sign Value Unit [place] Value [place] Unit Date/Time Recent/Initial? Code Code System Body Mass Index 19.20 kg/m2 10/14/2021 17:59 Initial 15475 -5 [facility] Systolic Blood Pressure 137 mm[Hg] 10/14/2021 17:59 Initial 8480- 6 LOINC Diastolic Blood Pressure 96 mm[Hg] 10/14/2021 17:59 Initial 8462- 4 LOINC Body Surface Area 1.69 m2 10/14/2021 17:59 Initial 3140- 1 LOINC Height 175.260 0 cm 69.00 in 10/14/2021 17:59 Initial 8302- 2 LOINC O2 Saturation 98 % 2021 17:59 Initial 43212 -5 INC Pulse 78.0 /min 10/14/2021 17:59 Initial 8867- 4 LOINC Respiration 16 /min 10/15/19 17:59 Initial 9279- 1 LOINC Temperature 36.6 Adelina 97.9 F 10/15/19 17:59 Initial 8310- 5 LOINC Weight 58.97 kg 130.00 lbs 10/14/2021 17:59 Initial 66517 -7 [facility] Medications Medication Start Date End Date Route Frequency Dose Code Code System Medication Instructions Home Meds Ibuprofen 200MG Oral Tablet 10/14/2021 Unknown ORAL EVERY 6 HOURS 3 TABLET 986289 RxNorm TAKE 3 TABLET ORAL EVERY 6 HOURS FOR 24 HOURS THEN NEEDED FOR PAIN Erythromycin 5MG/1GM Ophthalmic Ointment 10/14/2021 Unknown RIGHT EYE FOUR TIMES A DAY 608784 RxNorm PLACE 1/4 INCH RIGHT EYE FOUR TIMES A DAY until pain free for 24 hours Ketorolac Tromethamine 0.5% Ophthalmic Solution 10/14/2021 Unknown OPHTHALMIC NEEDED FOUR TIMES A DAY [address] 1 DROP OPHTHALMIC NEEDED FOUR [...] Code Code System LEFT CORNEAL ABRASION active 93558422 [id number] SNOMED-CT Allergies and Adverse Reactions Allergy Substance Reaction Severity Start Date Concern Status Co de Code System No Known Drug Allergies Active 528115283 SNOMED-CT Plan of Treatment OUTPATIENT PLAN: Discharge [...] them, Please Call Dr. Christopher cheung at [facility] and let them know [facility] wanted you to be seen by an human performance technologist or money room supervisor within 1 to 2 days and you were unable to get into see your own doctor. Dr. Christopher Cheung [facility] [phone] Other Instructions: Cool compresses for comfort. May patch eye also as discussed. Encounters Encounter Diagnosis Start Date Code Code Sys tem Injury of conjunctiva and co rneal abrasion without foreign body, left eye, initial encounter 10/14/2021 SNOMED-CT Personal Care Team Section Performer Name Performer Role Active Date Inactive Da te
--- OUTSIDE RECORDS SUMMARY | 2023-12-26 02:33 | XMS_ITS | Referral Summary ---
Author Organization [facility] Address [address] [place] [address] Care Team Providers Care University Professor Name Role Phone Bernice Cheung ANA Primary Care Provider [phone] Encounters Date Type Department Care Team Description 11/14/2023 Lab Requisition [facility] Pathology & Laboratory [address] [address] Outr Resulting Lab, Provider 11/04/2023 Lab Requisition [facility] Pathology & Laboratory [address] [address] Juliette Cates Encounter for other general examination from Last 3 Months Social History Tobacco Use Types Packs/Day Years Used Date Smoking Tobacco: Never Assessed Sex and Gender Information Value Date Recorded Sex Assigned at Not on file Gender Identity Not on file Sexual Orientation Not on file Plan of Treatment Not on file Procedures Procedure Name Priority Date/Time Associated Diagnosis Comments HOLD SST Today 11/13/2023 13:32 EDT LYME AB Today 11/13/2023 13:32 EDT CELIAC DISEASE PANEL Today 11/13/2023 13:32 EDT SURGICAL PATHOLOGY Today 11/03/2023 14 :40 EDT Encounter for other general examination from Last 3 Months Results * CELIAC DISEASE PANEL (11/13/2023 13:32 EDT) Tissue Transglutaminase Antibody, IgA <4.0 <20.0 CU 11/17/2023 11:43 EDT [facility] Comment: A negative result may be due to IgA deficiency and does not rule out celiac disease. Negative: <20.0 CU Weak Positive: 20.0-30.0 CU Positive: >30.0 CU Results were obtained with the GoodThreads[employer] Flash h-tTG IgA chemiluminescent immunoassay. Values obtained with different manufacturers' assay methods may not be used interchangeably. IgA 112 85 - 499 mg/dL 11/17/2023 11:43 EDT [facility] Celiac Disease Interpretation Negative Serology. Celiac disease unlikely. Approximately 10% of patients with celiac disease are seronegative. Patients who are already adhering to a gluten-free diet may also be seronegative. If celiac disease is highly clinically suspected, referral to gastroenterology for additional evaluation is recommended. 11/17/2023 11:43 EDT [facility] Blood VENOUS BLOOD / Unknown 11/13/2023 13:32 EDT 11/14/2023 16:57 EDT Provider Outr Resulting Lab IMMUNOLOGY A ND SEROLOGY ORDERABLES Performing Organization Address City/[facility]/ZIP Co de Phone Number [facility] [address] [place] [address] * HOLD SST (11/13/2023 13:32 EDT) Hold Hold 11/14/2023 18:01 EDT [facility] Blood VENOUS BLOOD / Unknown 11/13/2023 13:32 EDT 11/14/2023 16:57 EDT Provider Outr Resulting Lab LAB INFO SER VICE AND SUPPORT & PHONE RESULT Performing Organization Address [facility]/ZIP Co de Phone Number [facility] [address] [place], [place] [id number] * LYME AB (11/13/2023 13:32 EDT) Lyme Ab Negative Negative 11/17/2023 10:18 EDT [facility] Blood VENOUS BLOOD / Unknown 11/13/2023 13:32 EDT 11/14/2023 16:57 EDT Provider Outr Resulting Lab IMMUNOLOGY A ND SEROLOGY ORDERABLES [facility] [address] [place] [phone] * SURGICAL PATHOLOGY (11/03/2023 14:40 EDT) Note to Patient The following pathology results have been interpreted by your pathologist and may be available to you before your health provider has had the opportunity to review them. Please allow time for your provider to receive these results and explore management options, if applicable. 11/06/2023 9:17 EDT [facility] Final Diagnosis A. ENDOMETRIUM, BIOPSY: - Inactive endometrium with tubal metaplasia. 11/06/2023 9:17 T [facility] Attestation There was significant resident/fellow involvement in the diagnostic evaluation of this case. By the signature below, the attending physician certifies that they have personally conducted a gross and/or microscopic examination of the described specimens and rendered or confirmed the above diagnosis. 11/06/2023 9:17 [facility] at 0917 Clinical History Thickened endometrium 11/06/2023 9:17 [facility] Gross Description A. Received in formalin labelled with proper patient identification (initials B, R) and endometrium is an aggregate of briceño-brown soft tissue fragments with a small amount of admixed blood clot and mucus (0.8 x 0.4 x 0.2 cm). Entirely submitted in A1. LAVON BANG(ASCP) 11/04/2023 9:19 11/06/2023 9:17 T [facility] Resident/Elier w: Nguyễn Dodson DO 11/06/2023 9:17 T [facility] Performing Lab [facility] 11/06/2023 9:17 [facility] Scanned Images 11/06/2023 9:17 [facility] Tissue ENDOMETRIAL STRUCTURE / Unknown 11/03/2023 14:40 EDT 11/04/2023 7:59 EDT Juliette Cates PATHOLOGY ORDERABLES [facility] [address] [place] [address] from Last 3 Months Care Teams University Professor Relationship Specialty Start Date End Date Bernice Cheung FNP [address] [place] [phone] PCP - General 10/25/21
--- OUTSIDE RECORDS SUMMARY | 2023-12-26 02:33 | XMS_ITS | Encounter Summary ---
Author Organization [facility] [place] [address] Care Team Providers Care Erp Consultant Name Role Phone Bernice Cheung APRN Primary Care Provider [phone] Encounter Details Date Type Department Care Team [...] 2:00 PM EST Office Visit Dermatology at [place] [address] [place] [address] Wan Wellington MD [address] [facility], [place] [address] documented as of this encounter Visit Diagnoses Not on filedocumented in this encounter Care Teams Erp Consultant Relationship Specialty Start Date End Date Bernice Cheung APRN [address] [place] [address] PCP - General Family Medicine 04/01/22 documented as of this encounter
--- OUTSIDE RECORDS SUMMARY | 2023-12-26 02:33 | XMS_ITS | Encounter Summary ---
Author Organization [facility] Address [address] [place] [address] Care Team Providers Care Marketing Proposal Specialist Name Role Phone Bernice Cheung ANA Primary Care Provider [phone] Encounter Details Date Type Department Care Team (Late st Contact Info) Description 11/14/2023 Lab Requisition [facility] Pathology & Laboratory Medicine - [address] [address] Outr Resulting Lab, Provider Social History Tobacco [...] Procedure Name Priority Date/Time Associated Diagnosis Comments CELIAC DISEASE PANEL Today 11/13/2023 13:32 EDT HOLD SST Today 11/13/2023 13:32 EDT LYME AB Today 11/13/2023 13:32 EDT documented in this encounter Results * HOLD SST (11/13/2023 13:32 EDT) Hold Hold 11/14/2023 18:01 EDT [facility] Blood VENOUS BLOOD / Unknown 11/13/2023 13:32 EDT 11/14/2023 16:57 EDT Provider Outr Resulting Lab LAB INFO SER VICE AND SUPPORT & PHONE RESULT Performing Organization Address City/State/[facility] Co de Phone Number [facility] [address] [place] [address] * LYME AB (11/13/2023 13:32 EDT) Lyme Ab Negative Negative 11/17/2023 10:18 EDT [facility] Blood VENOUS BLOOD / Unknown 11/13/2023 13:32 EDT 11/14/2023 16:57 EDT Provider Outr Resulting Lab IMMUNOLOGY A ND SEROLOGY ORDERABLES Performing Organization Address [facility] Co de Phone Number [facility] [address] [place] [address] * CELIAC DISEASE PANEL (11/13/2023 13:32 EDT) Tissue Transglutaminase Antibody, IgA <4.0 <20.0 CU 11/17/2023 11:43 EDT [facility] Comment: A negative result may be due to IgA deficiency and does not rule out celiac disease. Negative: <20.0 CU Weak Positive: 20.0-30.0 CU Positive: >30.0 CU Results were obtained with the So Protect MeA Flash h-tTG IgA chemiluminescent immunoassay. Values obtained with different manufacturers' assay methods may not be used interchangeably. IgA 112 85 - 499 mg/dL 11/17/2023 11:43 EDT [facility] Celiac Disease Interpretation Negative Serology. Celiac disease unlikely. Approximately 10% of patients with celiac disease are seronegative. Patients who are already adhering to a gluten-free diet may also be seronegative. If celiac disease is highly clinically suspected, referral to gastroenterology for additional evaluation is recommended. 11/17/2023 11:43 EDT [facility] Blood VENOUS BLOOD / Unknown 11/13/2023 13:32 EDT 11/14/2023 16:57 EDT Provider Outr Resulting Lab IMMUNOLOGY A ND SEROLOGY ORDERABLES Performing Organization Address City/[facility]/ZIP Co de Phone Number [facility] [address] [place] [address] documented in this encounter Visit Diagnoses Not on filedocumented in this encounter Care Teams Marketing Proposal Specialist Relationship Specialty Start Date End Date Bernice Cheung FNP [address] [place] [address] [address] [place] [address] PCP - General 10/25/21 documented as of this encounter
--- OUTSIDE RECORDS SUMMARY | 2023-12-26 02:33 | XMS_ITS | Encounter Summary ---
Author Organization [facility] Address [address] [place] [address] Care Team Providers Care Powerhouse Mechanic Supervisor Name Role Phone Unavailable Primary Care Provider Unavailabl e Encounter Details Date Type Department Care Team (Late st Contact Info) Description 11/08/2003 Results Only [facility] Family Medicine - [address] [address] Brigitte Almanza MD Social History Tobacco Use [...] ? RAY FAM ? Accession #: ? [id number] : ? 1960 (Age: 43) ??F ?Collect [...] Almanza MD PATHOLOGY ORDERABLES SHARRON MURPHY [address] [place] [address] documented in this encounter Visit Diagnoses Not on filedocumented in this encounter
--- OUTSIDE RECORDS SUMMARY | 2023-12-26 02:34 | XMS_ITS | Encounter Summary ---
Author Organization [facility] Address [facility] [place] [address] Care Team Providers Care Nut Chopper Name Role Phone OusmaneJaz Rand CABRERA Primary Care Provider [phone] Reason for Visit * Reason Comments Travel Consult Encounter Details Date Type Department Care Team (Late st Contact Info) Description 03/03/2012 2:30 PM EST Office Visit Infectious Disease at [facility] [place] [phone] Bethany Blanton sports physiologist foreign (Primary Dx) Discharge Disposition: Home Social [...] Details: Destination countries (list from first to last):[facility], [place], [facility], [facility] Departure date: 04/10/2012 Length of trip: 04/26/2012 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 ??? Stanton-3 Fatty Acids (FISH OIL) 500 mg Cap [...] cipro, twice daily for three days,sent to [facility] For severe or bloody diarrhea, or diarrhea accompanied by vomiting: patient advised to seek medicaltreatment. Vector-borne Disease Prevention Discussed insect bite prevention to reduce risk of malaria, dengue and other insect borne illnesses. Handout given. Malaria Risk: (x) Significant risk of malaria on this itinerary. Discussed malaria chemoprophylaxis and possible side effects. [facility] [place] Altitude: (x) This trip does not involve high altitude. . Follow-up Recommendations: A recommendation was made that the patient have a tst placed about 3 months after returning from this trip. The patient may either call the travel clinic or get this done through their primary care associate. Patient advised to call travel clinic if [...] if exposed 2. 3. 1. 2. 3. Cuban Encephalitis 1. 2. 3. 1. 2. 3. 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 documented in this encounter Plan of Treatment Upcoming Encounters Date Type Department Care Team (Late st Contact Info) Description 04/13/2024 2:00 PM EST Office Visit Dermatology at [place] [address] [place] [address] Wan Wellington MD [address], [place] [address] documented as of this encounter Visit Diagnoses Diagnosis Travel foreign- Primary Other specified conditions influencing health status documented in this encounter Care Teams Nut Chopper Relationship Specialty Start Date End Date Jaz Romeo APRN [address] [place] [address] PCP - General 01/16/10 08/18/14 documented as of this encounter
--- OUTSIDE RECORDS SUMMARY | 2023-12-26 02:34 | XMS_ITS | Encounter Summary ---
Author Organization [facility] Address [facility] [place] [address] Care Team Providers Care Vmware Administrator Name Role Phone Brigitte Almanza MD Primary Care Provider [phone] Reason for Visit * Auth/Cert - Closed Specialty Diagnoses / Procedures Referred By Contbelkys t Referred To Contact Diagnoses Right carpal tunnel syndrome Procedures ENDOSCOPY WRIST W/ RELEASE TRANSVERSE CARPAL LIGAMENT Referral ID Status Reason Start Date Expiration Date Visits Re quested Visits Authorized [id number] Closed 1 1 Encounter Details Date Type Department Care Team (Late st Contact Info) Description 02/07/2015 3:48 PM EST Anesthesia Event [place] [phone] Chandni Scott MD [facility] [place] [address] Ivonne Sanderson CRNA [facility] [place] [address] Anesthesia Record Procedure Summary Procedure Name Responsible [...] 1337; median cubital vein left (antecubital fossa); tgyi-adb-sscyue catheter system; 20 gauge, 1 in length; [...] Scott MD - 02/07/2015 4:52 PM EST [facility] Department of Anesthesiology Post-procedure Note Patient: Whitney Fam Procedure Summary Date Anesthesia Start Anesthesia Stop Room / Location 02/07/15 1548 1618 [facility] OR [address] [place] [address] [facility] Procedure Diagnosis Surgeon Responsible Provider ENDOSCOPY WRIST W/ RELEASE TRANSVERSE CARPAL LIGAMENT (Right Wrist) Bilateral carpal tunnel syndrome Dominic Perry MD Seiffert, Ellen A, MD (Right carpal tunnel syndrome) Last (1hr) Vitals: BP 129/67 mmHg (02/07/15 1617) Temp 36.4 ??C (97.5 ??F) (02/07/151616) Pulse 76 (02/07/151616) Resp 20 (02/07/151616) SpO2 97 % (02/07/151616) Patient Location: PACU/[facility] Level of Consciousness: Awake and Alert [...] 1 MAC, with a(n) intravenous induction Ms. Fma is a 54 year old female with [...] risks discussed with patient. Plan discussed with VIRTUAL ASSISTANT FOR ADVERTISERS. PAT Staff Note documented in this encounter Plan of Treatment Upcoming Encounters Date Type Department Care Team (Late st Contact Info) Description 04/13/2024 2:00 PM EST Office Visit Dermatology at [place] [address] [place] [address] Wan Wellington MD [address], [place] [address] documented as of this encounter Visit Diagnoses [...] r documented in this encounter Care Teams Vmware Administrator Relationship Specialty Start Date End Date Brigitte Almanza MD [address] [place] [address] PCP - General 08/19/14 12/29/18 documented as of this encounter
--- OUTSIDE RECORDS SUMMARY | 2023-12-26 02:34 | XMS_ITS | Encounter Summary ---
Author Organization [facility] Address [facility] [place] [address] Care Team Providers Care Product Inspection Coordinator Name Role Phone Brigitte Almanza MD Primary Care Provider [phone] Reason for Visit * Reason Comments Follow Up Surgery L CTR DOS 03/03/15 Encounter Details Date Type Department Care Team (Late st Contact Info) Description 03/16/2015 1:30 PM EST Office [place] [address] Francine Campoverde PA [address] [place] [address] [place] [address] Bilateral carpal tunnel syndrome Social History Tobacco [...] was able to manage her pain with iqlv-zra-fsyatnp nonsteroidals and Tylenol. Examination of her left [...] 2:00 PM EST Office Visit Dermatology at [place] [address] [place] [address] Wan Wellington MD [address] [facility], [place] [address] documented as of this encounter Visit Diagnoses Diagnosis Bilateral carpal tunnel syndrome Carpal tunnel syndrome documented in this encounter Care Teams Product Inspection Coordinator Relationship Specialty Start Date End Date Brigitte Almanza MD [address] [place] [address] PCP - General 08/19/14 12/29/18 documented as of this encounter
--- OUTSIDE RECORDS SUMMARY | 2023-12-26 02:34 | XMS_ITS | Encounter Summary ---
Author Organization [place] [address] Care Team Providers Care Electronics Inspector Name Role Phone Brigitte Almanza MD Primary Care Provider [phone] Reason for Visit * Auth/Cert Specialty Diagnoses / Procedures Referred By Wan sloan Referred To Contact Diagnoses Left carpal tunnel syndrome Procedures PRO WRIST ARTHROSCOP, RELEASE XVERS LIG ENDOSCOPY WRIST W/ RELEASE TRANSVERSE CARPAL LIGAMENT Referral ID Status Reason Start Date Expiration Date Visits Re quested Visits Authorized [id number] 1 1 Encounter Details Date Type Department Care Team (Latest Contact Info) Description 03/03/2015 2:22 PM EST - 03/03/2015 4:15 PM EST Hospital Encounter Outpatient [place] [phone] Kingsley Perry MD [facility] [place] [address] Discharge Disposition: Home Social History Tobacco Use [...] closest emergency room or call the hospital transfer and pumphouse operator chief at [phone] and ask for physician civil engineering professional covering for your physician. Questions or problems after 5pm or on a weekend: Call the [facility] transfer and pumphouse operator chief at and ask for the physician civil engineering professional covering for your doctor. * Patient Instructions* [...] on them. You can also take an vumy-ddt-qnnuarj stool softener, colace or senna, to facilitate [...] unsteady on your feet. Call your doctor (#[phone]) if: 1. You have a fever > 101.5 or experience chills ??? Increased discharge from the incision ??? Any redness or swelling around the incision ??? Increased pain or change in the pain that is not controlled by your pain meds WHERE TO CALL WITH QUESTIONS [facility] Ask for the resident civil engineering professional for your provider Outpatient Surgery Center (7:00am [...] Operative Note Patient Name: Whitney Fam : [id number] MR#: [id number] Case Date: 03/03/2015 Surgeon: Surgeon(s) and Role: [...] Perry MD - 03/03/2015 2:51 PM EST [facility] Operative Note Patient Name: Whitney Fam : [id number] MR#: [id number] Case Date: 03/03/2015 Surgeon: Surgeon(s) and Role: [...] A preoperative time-out was performed as per [facility] protocol. 7 mL of 1% lidocaine with [...] 2:00 PM EST Office Visit Dermatology at [place] [address] [place] [address] Wan Wellington MD [address] [facility], [place] [address] (work) documented as of this encounter Procedures [...] Comment: mixed with lidocaine 1% with epi [id number]) documented in this encounter Care Teams Electronics Inspector Relationship Specialty Start Date End Date Brigitte Almanza MD [address] [place] [address] PCP - General 08/19/14 12/29/18 documented as of this encounter
--- OUTSIDE RECORDS SUMMARY | 2023-12-26 02:34 | XMS_ITS | Encounter Summary ---
Author Organization [facility] Address [facility] [place] [address] Care Team Providers Care Human Resources Technician Name Role Phone Jonatan Bernice CABRERA Primary Care Provider [phone] Encounter Details Date Type Department Care Team (Late st Contact Info) Description 05/17/2008 Orders Only Dermatology at [address] [phone] Wan Wellington MD [address] [place] [address], [facility] [place] [address] Social History Tobacco Use Types Packs/Day Years [...] 2:00 PM EST Office Visit Dermatology at [address] [address] Wan Wellington MD [address] [facility], [facility] [place] [address] documented as of this encounter Procedures Procedure Name Priority Date/Time Associated Diagnosis Comments SURGICAL PATHOLOGY REPORT Routine 05/17/2008 6:32 PM EDT documented in this encounter Results * Surgical Pathology Report (05/17/2008 6:32 PM EDT) Surgical Pathology Report [id number] ? Location: [facility] The signing pathologist has (i) examined the relevant preparation(s) for the specimen(s) and (ii) rendered or confirmed the diagnosis(es). . ?Pathology Surgical Pathology Final Report Clinical Information Specimen Submitted: A - (R) lower eyelid/lateral, Shave (1): Clinical History: Pearly papule x 2 years TX'ed with shave C&D Clinical Diagnosis: BCCA Report to: Wan Wellington MD, III [facility] Dermatology [place], [place] [address] Gross Description Labeled/Fixativ e: ? Labeled with [...] in rendering the final pathologic diagnosis. [facility] 05/17/2008 6:32 PM EDT Wan Wellington MD PATHOLOGY/CYTOLOGY O RDERABLES [facility] documented in this encounter Visit Diagnoses Not on filedocumented in this encounter Care Teams Human Resources Technician Relationship Specialty Start Date End Date Bernice Cheung APRN [address] [place] [address] PCP - General Family Medicine 04/01/22 documented as of this encounter
--- OUTSIDE RECORDS SUMMARY | 2023-12-26 02:34 | XMS_ITS | Encounter Summary ---
Author Organization [facility] Address [facility] [place] [address] Care Team Providers Care Mechanical Project Manager Name Role Phone Jonatan Bernice CABRERA Primary Care Provider [phone] Reason for Visit * Reason Comments Follow-up Encounter Details Date Type Department Care Team (Late st Contact Info) Description 04/01/2022 2:30 PM EST Office Visit Dermatology at [address] [phone] Wan Wellington MD [address] [facility], [place] [address] History of basal cell carcinoma; History of [...] 2:00 PM EST Office Visit Dermatology at [place] [address] [place] [address] Wan Wellington MD [address], [place] [address] documented as of this encounter Visit Diagnoses Diagnosis History of basal cell carcinoma Personal history of other malignant neoplasm of skin History of SCC (squamous cell carcinoma) of skin Personal history of other malignant neoplasm of skin documented in this encounter Care Teams Mechanical Project Manager Relationship Specialty Start Date End Date Bernice Cheung APRN [address] [place] [address] PCP - General Family Medicine 04/01/22 documented as of this encounter
--- OUTSIDE RECORDS SUMMARY | 2023-12-26 02:34 | XMS_ITS | Encounter Summary ---
Author Organization [facility] Address [facility] [place] [address] Care Team Providers Care Roustabout Crew Leader Name Role Phone Brigitte Almanza MD Primary Care Provider [phone] Encounter Details Date Type Department Care Team (Late Contact Info) Description 03/04/2015 Telephone [place] [address] Cb Iqbal MD [facility] DR [place] [address] Social History Tobacco Use Types Packs/Day Years [...] 2:00 PM EST Office Visit Dermatology at [place] [address] [place] [address] Wan Wellington MD [address], [place] [address] documented as of this encounter Visit Diagnoses Not on filedocumented in this encounter Care Teams Roustabout Crew Leader Relationship Specialty Start Date End Date Brigitte Almanza MD [address] [place] [address] PCP - General 08/19/14 12/29/18 documented as of this encounter
--- OUTSIDE RECORDS SUMMARY | 2023-12-26 02:34 | XMS_ITS | Encounter Summary ---
Author Organization [facility] [place] [address] Care Team Providers Care Manpower Development Advisor Name Role Phone Brigitte Almanza MD Primary Care Provider [phone] Reason for Visit * Auth/Cert Specialty Diagnoses / Procedures Referred By Wan t Referred To Contact Diagnoses Left carpal tunnel syndrome Procedures PRO WRIST ARTHROSCOP, RELEASE XVERS LIG ENDOSCOPY WRIST W/ RELEASE TRANSVERSE CARPAL LIGAMENT Referral ID Status Reason Start Date Expiration Date Visits Re quested Visits Authorized [id number] 1 1 Encounter Details Date Type Department Care Team (Late st Contact Info) Description 03/03/2015 3:05 PM EST Anesthesia Event [place] [address] Neyda Stringer MD [facility] [place] [address] Alin Soto MD [facility] [place] [address] Anesthesia Record Procedure Summary Procedure Name Responsible [...] 1446; metacarpal vein right (top of hand); gpsd-thn-unbmst catheter system; 22 gauge, 1 in length; [...] Stringer MD - 03/03/2015 3:37 PM EST [facility] Department of Anesthesiology Post-procedure Note Patient: Whitney Fam Procedure Summary Date Anesthesia Start Anesthesia Stop Room / Location 03/03/15 1505 1533 [facility] OR [address] [place] [address] OSC Procedure Diagnosis Surgeon Responsible Provider ENDOSCOPY [...] LIGAMENT performed by Dominic Perry MD at [facility] History Substance Use Topics ??? Smoking [...] risks discussed with patient. Plan discussed with CONTROL CLERK HEAD. PAT Staff Note documented in this encounter Plan of Treatment Upcoming Encounters Date Type Department Care Team (Late st Contact Info) Description 04/13/2024 2:00 PM EST Office Visit Dermatology at [place] [address] [facility] [place] [address] Wan Wellington MD [address] [facility], [place] [address] documented as of this encounter Visit Diagnoses [...] mL/hr documented in this encounter Care Teams Manpower Development Advisor Relationship Specialty Start Date End Date Brigitte Almanza MD [address] [place] [address] PCP - General 08/19/14 12/29/18 documented as of this encounter
--- OUTSIDE RECORDS SUMMARY | 2023-12-26 02:34 | XMS_ITS | Encounter Summary ---
Author Organization [facility] Address [facility] [place] [address] Care Team Providers Care Tower Cleaner Name Role Phone Brigitte Almanza MD Primary Care Provider [phone] Reason for Visit * Auth/Cert - Closed Specialty Diagnoses / Procedures Referred By Wan sloan Referred To Contact Diagnoses Right carpal tunnel syndrome Procedures ENDOSCOPY WRIST W/ RELEASE TRANSVERSE CARPAL LIGAMENT Referral ID Status Reason Start Date Expiration Date Visits Re quested Visits Authorized [id number] Closed 1 1 Encounter Details Date Type Department Care Team (Latest Contact Info) Description 02/07/2015 12:56 PM EST - 02/07/2015 4:49 PM EST Hospital Encounter Outpatient [place] [phone] Kignsley Perry MD [facility] [address] Discharge Disposition: Home Social History Tobacco Use [...] 5pm or on a weekend: Call the [facility] lap cutter truer operator and ask for the physician physical education teacher covering for your doctor. * Patient [...] on them. You can also take an wtfz-oaz-rjyqazu stool softener, colace or senna, to facilitate [...] incision or dressings wet. Call your doctor (#[phone]) if: ?? You have a fever > 101.5 or experience chills Increased discharge from the incision Any redness or swelling around the incision Increased pain or change in the pain that is not controlled by your pain medications WHERE TO CALL WITH QUESTIONS [facility] Ask for the resident physical education teacher for your provider Outpatient Surgery Center [...] Perry MD - 02/07/2015 3:09 PM EST [facility] Operative Note Patient Name: Whitney Fam : [id number] MR#: [id number] Case Date: 02/07/2015 Surgeon: Surgeon(s) and Role: [...] A preoperative time-out was performed as per [facility] protocol. 6mL of 1% lidocaine with epinephrine [...] Operative Note Patient Name: Whitney Fam : [id number] MR#: [id number] Case Date: 02/07/2015 Surgeon: Surgeon(s) and Role: [...] 2:00 PM EST Office Visit Dermatology at [place] [address] [facility] [place] [address] Wan Wellington MD [address], [place] [address] documented as of this encounter Procedures Procedure [...] CRNA) documented in this encounter Care Teams Tower Cleaner Relationship Specialty Start Date End Date Brigitte Almanza MD [address] [place] [address] PCP - General 08/19/14 12/29/18 documented as of this encounter
--- OUTSIDE RECORDS SUMMARY | 2023-12-26 02:34 | XMS_ITS | Encounter Summary ---
Author Organization [facility] [place] [address] Care Team Providers Care Manager Lean Name Role Phone Brigitte Almanza MD Primary Care Provider [phone] Reason for Visit * Auth/Cert Specialty Diagnoses / Procedures Referred By Wan sloan Referred To Contact Diagnoses Left carpal tunnel syndrome Procedures PRO WRIST ARTHROSCOP, RELEASE XVERS LIG ENDOSCOPY WRIST W/ RELEASE TRANSVERSE CARPAL LIGAMENT Referral ID Status Reason Start Date Expiration Date Visits Re quested Visits Authorized [id number] 1 1 Encounter Details Date Type Department Care Team (Late st Contact Info) Description 03/03/2015 3:25 PM EST - 03/03/2015 3:55 PM EST Surgery Outpatient [place] [address] Kingsley Perry MD [facility] [address] OR[place]OPA[place] [address] ENDOSCOPY WRIST W/ RELEASE TRANSVERSE CARPAL LIGAMENT [...] closest emergency room or call the hospital dinkey operator slate at [phone] and ask for physician contract technical writer covering for your physician. Questions or problems after 5pm or on a weekend: Call the [facility] dinkey operator slate at and ask for the physician contract technical writer covering for your doctor. * Patient Instructions* [...] on them. You can also take an uqip-tpw-siuxckf stool softener, colace or senna, to facilitate [...] unsteady on your feet. Call your doctor (#[phone]) if: 1. You have a fever > 101.5 or experience chills ??? Increased discharge from the incision ??? Any redness or swelling around the incision ??? Increased pain or change in the pain that is not controlled by your pain meds WHERE TO CALL WITH QUESTIONS [facility] Ask for the resident contract technical writer for your provider Outpatient Surgery Center (7:00am [...] Operative Note Patient Name: Whitney Fam : [id number] MR#: [id number] Case Date: 03/03/2015 Surgeon: Surgeon(s) and Role: [...] Perry MD - 03/03/2015 2:51 PM EST [facility] Operative Note Patient Name: Whitney Fam : [id number] MR#: [id number] Case Date: 03/03/2015 Surgeon: Surgeon(s) and Role: [...] A preoperative time-out was performed as per [facility] protocol. 7 mL of 1% lidocaine with [...] 2:00 PM EST Office Visit Dermatology at [place] [address] [facility] [place] [address] Wan Wellington MD 580 [facility], [place] [address] documented as of this encounter Procedures Procedure [...] 1452, Until Fri03/03/15 at 1452, CHE FRIEND: chase override gabapentin (NEURONTIN) capsule 300 mg 300 [...] Comment: mixed with lidocaine 1% with epi 1:139234) documented in this encounter Care Teams Manager Lean Relationship Specialty Start Date End Date Brigitte Almanza MD [address] [place] [address] PCP - General 08/19/14 12/29/18 documented as of this encounter
--- OUTSIDE RECORDS SUMMARY | 2023-12-26 02:34 | XMS_ITS | Encounter Summary ---
Author Organization [facility] Address [facility] [place] [address] Care Team Providers Care Fuel Verification Technician Name Role Phone Brigitte Almanza MD Primary Care Provider [phone] Reason for Visit * Reason Comments Skin Check Encounter Details Date Type Department Care Team (Late st Contact Info) Description 12/20/2014 10:15 AM EDT Office Visit Dermatology at [address] [address] Wan Wellington MD 580 [facility], [place] [address] Tinea versicolor; History of basal cell carcinoma; [...] Starr LPN - 12/20/2014 10:33 AM EDT [facility] Actinic Keratosis: After Your Visit Your Care [...] more? Visit our health information library at [email or web address] You can also view health information on [employer], your personal patient account. Log in or sign up today. Enter L364 in the search box to learn more about Actinic Keratosis: After Your Visit. ?? [id number] itzbig. Care instructions adapted under license by [facility]. This care instruction is for use with your licensed healthcare professional. If you have questions about a medical condition or this instruction, always ask your healthcare professional. [employer] disclaims any warranty or liability for your use of this information. Content Version: 10.4.033356; Current as of: September 23, 2013 documented [...] 2:00 PM EST Office Visit Dermatology at [address] [place] [address] Wan Wellington MD 580 [facility], [place] [address] documented as of this encounter Visit Diagnoses Diagnosis Tinea versicolor Pityriasis versicolor History of basal cell carcinoma Personal history of other malignant neoplasm of skin Nevus Benign neoplasm of skin, site unspecified documented in this encounter Care Teams Fuel Verification Technician Relationship Specialty Start Date End Date Brigitte Almanza MD [address] [place] [address] PCP - General 08/19/14 12/29/18 documented as of this encounter
--- OUTSIDE RECORDS SUMMARY | 2023-12-26 02:34 | XMS_ITS | Encounter Summary ---
Author Organization [facility] Address [facility] [place] [address] Care Team Providers Care Steam Pressure Chamber Operator Name Role Phone Brigitte Almanza MD Primary Care Provider [phone] Reason for Visit * Reason Comments Right Wrist Pain Encounter Details Date Type Department Care Team (Late st Contact Info) Description 01/11/2015 1:50 PM EST Office [place] [address] Dominic Perry MD [facility] [place] [address] Bilateral carpal tunnel syndrome Social History Tobacco [...] I also expressed my concern about potential infrastructure solutions architect weakness postop, which may affect her ability [...] no relief of neurogenic symptoms, pillar pain, infrastructure solutions architect weakness, and recurrence of carpal tunnel syndrome. She wishes to proceed with her right hand followed by her left hand perhaps in February. We will schedule this to be done as per her request. documented in this encounter Plan of Treatment Upcoming Encounters Date Type Department Care Team (Late st Contact Info) Description 04/13/2024 2:00 PM EST Office Visit Dermatology at [place] [address] [facility] [place] [address] Wan Wellington MD [address] [facility] [address], [place] [address] documented as of this encounter Visit Diagnoses Diagnosis Bilateral carpal tunnel syndrome Carpal tunnel syndrome documented in this encounter Care Teams Steam Pressure Chamber Operator Relationship Specialty Start Date End Date Brigitte Almanza MD [address] [place] [address] PCP - General 08/19/14 12/29/18 documented as of this encounter
--- OUTSIDE RECORDS SUMMARY | 2023-12-26 02:34 | XMS_ITS | Encounter Summary ---
Author Organization Count Includes [facility] [address] Care Team Providers Care Vp Strategy Name Role Phone Brigitte Almanza MD Primary Care Provider [phone] Reason for Referral * Surgical (Routine) - Closed Specialty Diagnoses / Procedures Referred By Contbelkys t Referred To Contact Orthopaedics Diagnoses Bilateral carpal tunnel syndrome Procedures ARTHROSCOPY WRIST W/ RELEASE TRANSVERSE CARPAL LIGAMENT Whitney Casey PA [facility] [place] [address] [address] Referral ID Status Reason Start Date Expiration Date V isits Requested Visits Authorized [id number] Closed Specialty Service Requested 12/13/2014 12/13/2015 1 1 * Surgical (Routine) - Closed Specialty Diagnoses / Procedures Referred By Contac t Referred To Contact Orthopaedics Diagnoses Bilateral carpal tunnel syndrome Procedures ARTHROSCOPY WRIST W/ RELEASE TRANSVERSE CARPAL LIGAMENT Whitney Casey PA [facility] [place] [address] [facility] [address] Referral ID Status Reason Start Date Expiration Date V isits Requested Visits Authorized [id number] Closed Specialty Service Requested 12/13/2014 12/13/2015 1 1 Reason for Visit * Reason Comments Bilateral Wrist Pain Encounter Details Date Type Department Care Team (Late st Contact Info) Description 12/13/2014 1:00 PM EDT Office Visit Orthopaedics at [facility] [place] [address] Whitney Casey PA [facility] [place] [address] Bilateral carpal tunnel syndrome Social History Tobacco [...] NAME: Whitney Fam AGE: 54 y.o. MR#: [id number] DATE OF VISIT: 12/13/2014 DATE OF INJURY/ONSET: Chronic STAFF: Dr. Perry CHIEF COMPLAINT: R>L hand numbness HISTORY OF PRESENT ILLNESS: Ms. Fam is a right hand dominant 54 y.o. female who comes into clinictoday for evaluation of the bilateral hands. She was referred to [facility] Ortho by Brigitte Almanza. She states her [...] the left carpal tunnel. Positive Phalen's and Pastora's compression bilaterally. Negative Spurling's, although this did cause some neck pain. She had no reproducible ulnar nerve symptoms. Neurovascular: At baseline she reports diminished sensation into the right median nerve distribution. Sensation into the ulnar and radial nerve distributions remains intact bilaterally. Hands are well perfused. RADIOLOGICAL STUDIES: No x-rays were obtained. She had nerve conduction studies at [facility] and showed a right median motor nerve [...] concerns. The above documentation was completed using Jason[employer] voice recognition software. documented in this encounter Plan of Treatment Upcoming Encounters Date Type Department Care Team (Late st Contact Info) Description 04/13/2024 2:00 PM EST Office Visit Dermatology at [place] 580 [facility] [place] [address] Wan Wellington MD [address] [facility] [address], [place] [address] documented as of this encounter Procedures Procedure [...] syndrome documented in this encounter Care Teams Vp Strategy Relationship Specialty Start Date End Date Brigitte Almanza MD [address] [place] [address] PCP - General 08/19/14 12/29/18 documented as of this encounter
--- OUTSIDE RECORDS SUMMARY | 2023-12-26 02:34 | XMS_ITS | Encounter Summary ---
Author Organization [facility] Address [facility] [place] [address] Care Team Providers Care Supervisor Wash House Name Role Phone Brigitte Almanza MD Primary Care Provider [phone] Encounter Details Date Type Department Care Team (Late Contact Info) Description 10/19/2014 - 10/19/2014 11:59 PM EDT Hospital Encounter Radiology Library at [facility] [place] [address] Ananda Living[place] MD [facility] [place] [address] Pain Social History Tobacco Use Types Packs/Day [...] Take 400 Units by mouth daily. 12/13/2014 Bellamy-3 Fatty Acids (FISH OIL) 500 mg Cap [...] 2:00 PM EST Office Visit Dermatology at [address] [place] [address] Wan [place] MD [address] [facility] [address], [place] [address] documented as of this encounter Procedures Procedure Name Priority Date/Time Associated Diagnosis Comments FILM LIBRARY STORAGE ONLY DX SPINE Routine 10/19/2014 12:00 AM EDT Pain documented in this encounter Results * Film Library- Storage only DX Spine (10/19/2014 12:00 AM EDT) Narrative [facility] - 12/02/2014 10:58 AM EDT See PACS for result report. Ananda Livingston MD IMG FILM LIBRARY ORD ERABLES [place], [place] documented in this encounter Visit Diagnoses Diagnosis Pain Generalized pain documented in this encounter Care Teams Supervisor Wash House Relationship Specialty Start Date End Date Brigitte Almanza MD [address] [place] [address] PCP - General 08/19/14 12/29/18 documented as of this encounter
--- OUTSIDE RECORDS SUMMARY | 2023-12-26 02:34 | XMS_ITS | Encounter Summary ---
Author Organization [facility] [place] [address] Care Team Providers Care First Beater Name Role Phone Brigitte Almanza MD Primary Care Provider [phone] Reason for Referral * Physical Therapy (Routine) - Closed Specialty Diagnoses / Procedures Referred By Contac t Referred To Contact Physical Therapy Diagnoses Chronic low back pain Delfino Guerrero MD [facility] [place] [address] [facility] [place] [address] Referral ID Status Reason Start Date Expiration Date V isits Requested Visits Authorized [id number] Closed Evaluate and Treat 01/17/2015 01/17/2016 6 6 Reason for Visit * Reason Comments Neck Pain numbness to arms Low Back Pain With Radicular Pain hips a nd butt Encounter Details Date Type Department Care Team (Late st Contact Info) Description 01/17/2015 8:40 AM EST Office [place] [address] Delfino Guerrero MD [facility] [place] [address] Chronic low back pain; Chronic neck pain [...] has waxing and waning weakness in her cable former. Her lower back pain is a matter [...] 2:00 PM EST Office Visit Dermatology at [place] [address] [facility] [place] [address] Wan Wellington MD [address] [facility] [address], [place] [address] Scheduled Referrals Name Type Priority Associated Diagnoses Orde r Schedule Referral to Physical Therapy Outpatient Referral Routine Chronic low back pain Ordered: 01/17/2015 documented as of this encounter Visit Diagnoses Diagnosis Chronic low back pain Lumbago Chronic neck pain Cervicalgia documented in this encounter Care Teams First Beater Relationship Specialty Start Date End Date Brigitte Almanza MD [address] [place] [address] PCP - General 08/19/14 12/29/18 documented as of this encounter
--- OUTSIDE RECORDS SUMMARY | 2023-12-26 02:34 | XMS_ITS | Encounter Summary ---
Author Organization [facility] [place] [address] Care Team Providers Care Fish Housekeeper Name Role Phone Romeo Crowley DDS Primary Care Provider [phone] Encounter Details Date Type Department Care Team [...] 2:00 PM EST Office Visit Dermatology at [address] [place] [address] Wan Wellington MD 580 [facility], [place] [address] documented as of this encounter Visit Diagnoses Not on filedocumented in this encounter Care Teams Fish Housekeeper Relationship Specialty Start Date End Date Romeo Crowley DDS [address] [place] [address] PCP - General Dental Tacker Elastic Band 12/30/18 2/ 3 documented as of this encounter
--- OUTSIDE RECORDS SUMMARY | 2023-12-26 02:34 | XMS_ITS | Encounter Summary ---
Author Organization [facility] [place] [address] Care Team Providers Care Aircraft Cylinder Mechanic Name Role Phone KeoRomeo DDS Primary Care Provider [phone] Reason for Visit * Reason Comments Skin Check Encounter Details Date Type Department Care Team (Late st Contact Info) Description 03/12/2022 4:15 PM EST Office Visit Dermatology at [address] [address] Wan Wellington MD 580 [facility], [place] [address] History of basal cell carcinoma Social History [...] 2 days ago from a trip to [facility]. She has benign examination of the face [...] 2:00 PM EST Office Visit Dermatology at [place] 580 [place] [address] Wan Wellington MD 580 [facility], [place] [address] documented as of this encounter Visit Diagnoses Diagnosis History of basal cell carcinoma Personal history of other malignant neoplasm of skin documented in this encounter Care Teams Aircraft Cylinder Mechanic Relationship Specialty Start Date End Date Romeo Crowley DDS [address] [place] [address] PCP - General Dental Underwriting Sales Representative 12/30/18 3 documented as of this encounter
--- OUTSIDE RECORDS SUMMARY | 2023-12-26 02:34 | XMS_ITS | Encounter Summary ---
Author Organization [facility] Address [facility] [place] [address] Care Team Providers Care Thermodynamics Teacher Name Role Phone KeoRomeo DDS Primary Care Provider [phone] Encounter Details Date Type Department Care Team (Late st Contact Info) Description 01/04/2019 Telephone Medical Genetics at [address] [place] [address] [address] Chery Cedeno [facility] [address] [place] [address] Social History Tobacco Use Types Packs/Day Years [...] at age 59 and was seen at [facility]. 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 Her mother wasalso affected, but did not have genetic testing. Her sister lives in [place]. Her sister has not had genetic testing [...] 2:00 PM EST Office Visit Dermatology at [place] [address] [facility] [place] [address] Wan Wellington MD 580 [facility], [place] [address] documented as of this encounter Visit Diagnoses Not on filedocumented in this encounter Care Teams Thermodynamics Teacher Relationship Specialty Start Date End Date Romeo Crowley, JULIS [address] [place] [address] PCP - General Dental Solar Development Engineer 12/30/18 3 documented as of this encounter
--- OUTSIDE RECORDS SUMMARY | 2023-12-26 02:34 | XMS_ITS | Encounter Summary ---
Author Organization [facility] Address [facility] [place] [address] Care Team Providers Care Mushroom Cultivator Name Role Phone Romeo Crowley Juana DDS Primary Care Provider [phone] Encounter Details Date Type Department Care Team (Late st Contact Info) Description 03/21/2022 Telephone Dermatology at [address] [address] Francia Suarez LPN Social History [...] 2:00 PM EST Office Visit Dermatology at [address] [address] Wan Wellington MD [address] [facility] [address], [place] [address] documented as of this encounter Visit Diagnoses Not on filedocumented in this encounter Care Teams Mushroom Cultivator Relationship Specialty Start Date End Date Romeo Crowley, DDS [address] [place] [address] PCP - General Dental Test Worker 12/30/18 2/ 3 documented as of this encounter
--- OUTSIDE RECORDS SUMMARY | 2023-12-26 02:34 | XMS_ITS | Encounter Summary ---
Author Organization Count Includes [facility] Address [facility] [place] [address] Care Team Providers Care Awning Hanger Helper Name Role Phone Brigitte Almanza MD Primary Care Provider [phone] Reason for Visit * Auth/Cert - Closed Specialty Diagnoses / Procedures Referred By Wan sloan Referred To Contact Diagnoses Right carpal tunnel syndrome Procedures ENDOSCOPY WRIST W/ RELEASE TRANSVERSE CARPAL LIGAMENT Referral ID Status Reason Start Date Expiration Date Visits Re quested Visits Authorized [id number] Closed 1 1 Encounter Details Date Type Department Care Team (Late st Contact Info) Description 02/07/2015 2:45 PM EST - 02/07/2015 3:15 PM EST Surgery Out[place] [address] Kingsley Perry MD [facility] [place] [address] ENDOSCOPY WRIST W/ RELEASE TRANSVERSE CARPAL LIGAMENT [...] on a weekend: Call the [facility] fork operator and ask for the physician events solutions consultant covering for your doctor. * Patient Instructions* [...] on them. You can also take an tdlb-nku-zqenxwg stool softener, colace or senna, to facilitate [...] incision or dressings wet. Call your doctor (#[phone]) if: ?? You have a fever > 101.5 or experience chills Increased discharge from the incision Any redness or swelling around the incision Increased pain or change in the pain that is not controlled by your pain medications WHERE TO CALL WITH QUESTIONS [facility] Ask for the resident events solutions consultant for your provider Outpatient Surgery Center (7:00am [...] Perry MD - 02/07/2015 3:09 PM EST [facility] Operative Note Patient Name: Whitney Fam : [id number] MR#: [id number] Case Date: 02/07/2015 Surgeon: Surgeon(s) and Role: [...] A preoperative time-out was performed as per [facility] protocol. 6mL of 1% lidocaine with epinephrine [...] Operative Note Patient Name: Whitney Fam : [id number] MR#: [id number] Case Date: 02/07/2015 Surgeon: Surgeon(s) and Role: [...] 2:00 PM EST Office Visit Dermatology at [place] 580 [facility] [place] [address] aWn Wellington MD [address] [facility], [place] [address] documented as of this encounter Procedures Procedure [...] CRNA) documented in this encounter Care Teams Awning Hanger Helper Relationship Specialty Start Date End Date Brigitte Almanza MD [address] [place] [address] PCP - General 08/19/14 12/29/18 documented as of this encounter
--- OUTSIDE RECORDS SUMMARY | 2023-12-26 02:34 | XMS_ITS | Encounter Summary ---
Author Organization [facility] [place] [address] Care Team Providers Care Educational Advisor Name Role Phone Bernice Cheung APRN Primary Care Provider [phone] Encounter Details Date Type Department Care Team [...] 2:00 PM EST Office Visit Dermatology at [place] [address] [facility] [place] [address] Wan Wellington MD 580 [facility], [place] [address] documented as of this encounter Visit Diagnoses Not on filedocumented in this encounter Care Teams Educational Advisor Relationship Specialty Start Date End Date Bernice Cheung APRN [address] [place] [address] PCP - General Family Medicine 04/01/22 documented as of this encounter
--- OUTSIDE RECORDS SUMMARY | 2023-12-26 02:34 | XMS_ITS | Encounter Summary ---
Author Organization [facility] Address [facility] [place] [address] Care Team Providers Care Pharmacy Services Director Name Role Phone Brigitte Almanza MD Primary Care Provider [phone] Reason for Visit * Reason Onset Date Comments Bumped Appointment 11/10/2014 Encounter Details Date Type Department Care Team (Late st Contact Info) Description 11/10/2014 [place] [address] Dominic Perry MD [facility] DR ORTHOPA[place] [address] Bumped Appointment Social History Tobacco Use Types [...] 2:00 PM EST Office Visit Dermatology at [place] [address] [facility] [place] [address] Wan Wellington MD [address] [facility] [address], [place] [address] documented as of this encounter Visit Diagnoses Not on filedocumented in this encounter Care Teams Pharmacy Services Director Relationship Specialty Start Date End Date Brigitte Almanza MD [address] [place] [address] PCP - General 08/19/14 12/29/18 documented as of this encounter
[2023-12-26 11:41] LABS: Abs Immature Grans 0.01 10^3/uL (0.0-0.06); Absolute Basophil Count 0.04 10^3/uL (0.0-0.2); Absolute Eosinophil Count 0.04 10^3/uL (0.0-0.7); Absolute Lymphocyte Count 1.21 10^3/uL (1.2-3.4); Absolute Monocyte Count 0.29 10^3/uL (0.1-0.8); Absolute Neutrophil Count 1.89 10^3/uL (1.2-6.7); Basophils % 1.1 %; Eosinophils % 1.1 %; HCT 40.8 % (36.0-46.0); HGB 13.8 g/dL (11.2-15.7); Immature Grans % 0.3 %; Lymphocytes % 34.8 %; MCH 31.4 pg (27.0-33.0); MCHC 33.8 % (32.0-36.0); MCV 93 fL (80-95); MPV 9.5 fL (8.0-11.0); Monocytes % 8.3 %; Neutrophils % 54.4 %; Platelet Count 267 10^3/uL (130-400); RBC 4.39 10^6/uL (3.93-5.22); RDW 12.2 % (11.7-14.6); RDW-SD 42.2 fL; WBC 3.48 10^3/uL (4.4-10.8)
[2023-12-26 11:59] LABS: ALT 23 U/L (14-59); AST 17 U/L (15-37); Albumin 3.8 g/dL (3.4-5.0); Alkaline Phosphatase 75 U/L (46-116); Anion Gap 10.3 mmol/L (3-11); BUN 16 mg/dL (7-18); CO2 27.7 mmol/L (21.0-32.0); CREATININE 0.9 mg/dL (0.55-1.02); Calcium 9.3 mg/dL (8.5-10.1); Chloride 105 mmol/L (98-107); Estimated GFR 72.28 (mL/min/1.73m2); Glucose 98 mg/dL (74-106); Potassium 4.1 mmol/L (3.5-5.1); Sodium 143 mmol/L (136-145)
[2023-12-26 12:02] LABS: ESR < 1 mm/hr (0-30)
[2023-12-26 13:24] LABS: C-Reactive Protein < 0.50 mg/dL (<or=0.5)
[2023-12-26 18:12] LABS: Rheumatoid Factor 8.9 IU/mL (<12.0)
[2023-12-29 13:21] LABS: ANA Interpretation Negative (Negative)
== END 2023-12-26 02:31 | disposition home or self-care (01) ==
PROVIDERS: PCP Nurse Practitioner Family; Visit Provider Nurse Practitioner Family
DX: D72.819 Decreased white blood cell count, unspecified (principal); M25.561 Pain in right knee; Z00.00 Encounter for general adult medical examination without abnormal findings
CPT/HCPCS: 36415; 80053; 85652; 85025; 86038; 86140; 86431

== ENCOUNTER 2024-03-10 14:41 | Outpatient (REF) | payer BC, MEDICAID, SELFPAY ==
[2024-03-10 14:36] LABS: Absolute Basophil Count 0.05 10^3/uL (0.0-0.2); Absolute Eosinophil Count 0.03 10^3/uL (0.0-0.7); Absolute Lymphocyte Count 1.19 10^3/uL (1.2-3.4); Absolute Monocyte Count 0.36 10^3/uL (0.1-0.8); Absolute Neutrophil Count 1.53 10^3/uL (1.2-6.7); Basophils % 1.6 %; ESR 1 mm/hr (0-30); Eosinophils % 0.9 %; HCT 42.4 % (36.0-46.0); HGB 13.9 g/dL (11.2-15.7); Lymphocytes % 37.7 %; MCH 31.2 pg (27.0-33.0); MCHC 32.8 % (32.0-36.0); MCV 95 fL (80-95); MPV 10.7 fL (8.0-11.0); Monocytes % 11.4 %; Neutrophils % 48.4 %; Platelet Count 232 10^3/uL (130-400); RBC 4.46 10^6/uL (3.93-5.22); RDW 12.1 % (11.7-14.6); RDW-SD 42.4 fL; WBC 3.16 10^3/uL (4.4-10.8)
[2024-03-10 14:43] LABS: C-Reactive Protein < 0.50 mg/dL (<or=0.5)
[2024-03-12 15:46] LABS: HLA-B27 Result Negative
== END 2024-03-10 14:42 | disposition home or self-care (01) ==
LOC: NCHCN 14:41
PROVIDERS: PCP Nurse Practitioner Family; Visit Provider Nurse Practitioner Family
DX: H34.8322 Tributary (branch) retinal vein occlusion, left eye, stable (principal)
CPT/HCPCS: 85652; 86812; 85025; 86140

== ENCOUNTER 2024-03-11 14:01 | Outpatient (CLI) | payer BC, MEDICAID, SELFPAY ==
--- NOTE | 2024-03-11 | DI.RAD_ITS ---
Exam(s) XR CERVICAL SPINE COMP 4-5V EXAM: XR CERVICAL SPINE COMP 4-5V CLINICAL HISTORY: M54.2 Cervicalgia. TECHNIQUE: 2D digital imaging was performed. Five views were performed. COMPARISON: CR CERV SP.WITH OBL OR FLEX/EXT from 10/19/2014 FINDINGS: BONES: No fracture or destructive lesion. Vertebral bodies are unremarkable. Facet degenerative pan nges. DISKS: Mild narrowing of the C3-4 disc space. Moderate narrowing of the C4-5 through C6-7 disc space s. Small uncovertebral of osteo osteophytes at C4-5 and C5-6 cause mild bilateral neural foraminal n arrowing. ALIGNMENT: Straightening of the normal cervical lordosis secondary to degenerative changes. SOFT TISSUE: Normal. The lung apices are clear. IMPRESSION: Degenerative disc changes greatest at C4-5 and C5-6 with cause mild bilateral neural foraminal narrow ing. DATA REPOSITORY: RADIATION DOSE DELIVERED:
--- NOTE | 2024-03-11 | DI.RAD_ITS ---
Exam(s) XR THORACIC SPINE COMPLETE EXAM: XR THORACIC SPINE COMPLETE CLINICAL HISTORY: M54.50 Low back pain. TECHNIQUE: 2D digital imaging was performed. Three views. COMPARISON: CR THORACIC SPINE from 10/19/2014 FINDINGS: BONES: There is no fracture or destructive lesion. The vertebral bodies and posterior elements are un remarkable. ALIGNMENT: Mild lower thoracic levoscoliosis. DISKS: Narrowing of the anterior disc spaces and small endplate osteophytes seen in the mid thoracic region. SOFT TISSUE: Visualized lungs are clear. IMPRESSION: Mild degenerative changes and scoliosis. DATA REPOSITORY: RADIATION DOSE DELIVERED:
--- NOTE | 2024-03-11 | DI.RAD_ITS ---
Exam(s) XR LUMBAR SPINE COMPLETE XR SACROILIAC JOINTS EXAM: XR LUMBAR SPINE COMPLETE CLINICAL HISTORY: M54.50 Low back pain. TECHNIQUE: 2D digital imaging was performed. Eight views. COMPARISON: CR LUMBAR SPINE COMPLETE from 10/19/2014 CR XR SACROILIAC JOINTS from 03/11/2024 FINDINGS: BONES: No fracture or destructive lesion. Vertebral body heights are maintained. facet hypertroph y at L3-4 through L5-S1. Of the SI joints and pubic symphysis are unremarkable. Minimal degenerativ e changes of the hips. DISKS: Mild narrowing of the L5-S1 disc space. The remaining intervertebral disc spaces are mainta ined. ALIGNMENT: Dextroscoliosis at the thoracolumbar junction. Mild retrolisthesis at L4-5 secondary to p rominent facet degenerative changes. SOFT TISSUE: Phleboliths in low pelvis. IMPRESSION: Degenerative changes of the lower lumbar spine. Mild thoracolumbar scoliosis. Unremarkable sacroili ac joints. DATA REPOSITORY: RADIATION DOSE DELIVERED:
== END 2024-03-11 14:21 ==
PROVIDERS: PCP Nurse Practitioner Family; Visit Provider Nurse Practitioner Family
DX: M51.24 Other intervertebral disc displacement, thoracic region (principal); M51.360 Other intervertebral disc degeneration, lumbar region with discogenic back pain only
CPT/HCPCS: 72050; 72072; 72110; 72202

== ENCOUNTER 2024-03-19 12:31 | Outpatient (CLI) | payer BC, MEDICAID, SELFPAY ==
[2024-03-19 13:03] LABS: HCT 39.2 % (36.0-46.0); HGB 12.9 g/dL (11.2-15.7); MCH 30.8 pg (27.0-33.0); MCHC 32.9 % (32.0-36.0); MCV 94 fL (80-95); MPV 10.1 fL (8.0-11.0); Platelet Count 211 10^3/uL (130-400); RBC 4.19 10^6/uL (3.93-5.22); RDW 11.8 % (11.7-14.6); RDW-SD 40.3 fL; WBC 3.72 10^3/uL (4.4-10.8)
[2024-03-19 13:24] LABS: Prothrombin Time 10.3 sec (9.1-11.1)
[2024-03-22 11:47] LABS: Antithrombin Activity, Plasma 96 % (80 - 130)
[2024-03-24 11:51] LABS: Protein C, Functional >150 % (71-199); Protein S, Functional 84 % (64-147)
[2024-03-24 17:12] LABS: Phospholipid Ab, IgG <9.4 GPL; Phospholipid Ab, IgM <9.4 MPL
[2024-03-25 09:17] LABS: Factor V Leiden(R506Q) Mut Negative (Negative)
[2024-03-25 09:23] LABS: Prothrombin G20210A Mutation Negative (Negative)
== END 2024-03-19 12:32 | disposition home or self-care (01) ==
LOC: LBO 12:36
PROVIDERS: PCP Nurse Practitioner Family; Visit Provider Nurse Practitioner Family
DX: Z00.00 Encounter for general adult medical examination without abnormal findings (principal); H34.8322 Tributary (branch) retinal vein occlusion, left eye, stable
CPT/HCPCS: 36415; 81240; 81241; 85027; 85300; 85306; 86147; 85303; 85610; 85730

== ENCOUNTER 2024-08-06 13:17 | Outpatient (CLI) | payer MEDICAID, SELFPAY ==
[2024-08-06 13:41] LABS: Abs Immature Grans 0.01 10^3/uL (0.0-0.06); Absolute Basophil Count 0.05 10^3/uL (0.0-0.2); Absolute Eosinophil Count 0.04 10^3/uL (0.0-0.7); Absolute Lymphocyte Count 1.62 10^3/uL (1.2-3.4); Absolute Monocyte Count 0.35 10^3/uL (0.1-0.8); Basophils % 1.1 %; Eosinophils % 0.9 %; HGB 12.8 g/dL (11.2-15.7); Immature Grans % 0.2 %; Lymphocytes % 37.1 %; MCH 30.8 pg (27.0-33.0); MCHC 32.8 % (32.0-36.0); MCV 94 fL (80-95); MPV 9.8 fL (8.0-11.0); Neutrophils % 52.7 %; Platelet Count 223 10^3/uL (130-400); RBC 4.15 10^6/uL (3.93-5.22); RDW 12.6 % (11.7-14.6); RDW-SD 43.8 fL; WBC 4.37 10^3/uL (4.4-10.8)
== END 2024-08-06 13:18 | disposition home or self-care (01) ==
LOC: LBO 13:18
PROVIDERS: PCP Nurse Practitioner Family; Visit Provider Nurse Practitioner Family
DX: D72.819 Decreased white blood cell count, unspecified (principal)
CPT/HCPCS: 36415; 85025

== ENCOUNTER 2024-11-10 02:05 | Outpatient (CLI) | payer MEDICAID, SELFPAY ==
--- NOTE | 2024-11-10 08:00 | DI.MAMMO_ITS ---
Exam(s) MAMMO SCREENING EXAM: MAMMO SCREENING CLINICAL HISTORY: screening. TECHNIQUE: Bilateral full field digital CC and MLO mammographic images were obtained with 3D tomosynthesis and utilizing computer aided detection (CAD). COMPARISON: Prior mammograms were reviewed. FINDINGS: There has been no significant change in the appearance and distribution of the fibroglandular tissue. There are no new spiculated masses nor malignant appearing microcalcification groups. There is no significant architectural distortion nor skin thickening-retraction. IMPRESSION: No radiographic evidence of malignancy. BI-RADS Category 1 - Negative Breast Density - Category B - There are scattered areas of fibroglandular density. Breast density Category C or D implies that the patient has dense breast tissue. Dense breast tissue can make it harder to find cancer on a mammogram. Dense breast tissue is also associated with an increased risk of breast cancer. This information about the result of the mammogram report was provided to the patient to raise their awareness. Use this report when you speak with the patient about their risks for breast cancer, which includes their family history. At that time, you may recommend additional screening tests (Ultrasound or MRI) as these tests may add significant information. A negative radiographic report should not delay biopsy if a dominant or clinically suspicious mass is present. Up to ten percent of cancers are not identified on mammography. A negative report may reinforce clinical impression. Adenosis and dense breasts may obscure an underlying neoplasm. False positive reports average 6 to 10%. Patient will receive a letter notifying them of these results.
== END 2024-11-10 02:25 ==
LOC: DI 02:06
PROVIDERS: PCP Nurse Practitioner Family; Visit Provider Obstetrics & Gynecology
DX: Z12.31 Encounter for screening mammogram for malignant neoplasm of breast (principal); R92.323 Mammographic fibroglandular density, bilateral breasts
CPT/HCPCS: 77063; 77067

== ENCOUNTER 2024-11-19 14:12 | Outpatient (REF) | payer MEDICAID, SELFPAY ==
[2024-11-19 15:07] LABS: Abs Immature Grans 0.01 10^3/uL (0.0-0.06); HCT 42.4 % (36.0-46.0); HGB 14.4 g/dL (11.2-15.7); Immature Grans % 0.3 %; MCH 31.5 pg (27.0-33.0); MCHC 34.0 % (32.0-36.0); MCV 93 fL (80-95); MPV 10.5 fL (8.0-11.0); Platelet Count 262 10^3/uL (130-400); RBC 4.57 10^6/uL (3.93-5.22); RDW 12.3 % (11.7-14.6); RDW-SD 42.1 fL; WBC 3.95 10^3/uL (4.4-10.8)
[2024-11-19 15:37] LABS: ALT 51 U/L (14-59); AST 27 U/L (15-37); Albumin 3.9 g/dL (3.4-5.0); Alkaline Phosphatase 89 U/L (46-116); Anion Gap 8.2 mmol/L (3-11); BUN 14 mg/dL (7-18); Bilirubin, Total 0.7 mg/dL (0.2-1.0); CO2 27.8 mmol/L (21.0-32.0); Calcium 8.9 mg/dL (8.5-10.1); Calculated LDL 179 mg/dL (<100); Chloride 104 mmol/L (98-107); Cholesterol 281 mg/dL (<200); Estimated GFR 71.83 (mL/min/1.73m2); Glucose 88 mg/dL (74-106); HDL Cholesterol 76 mg/dL (>or=50); Potassium 4.4 mmol/L (3.5-5.1); Sodium 140 mmol/L (136-145); Total Protein 6.7 g/dL (6.4-8.2); Triglyceride 131 mg/dL (<150)
== END 2024-11-19 14:13 | disposition home or self-care (01) ==
LOC: NCHCN 14:12
PROVIDERS: PCP Nurse Practitioner Family; Visit Provider Nurse Practitioner Family
DX: Z00.00 Encounter for general adult medical examination without abnormal findings (principal)
CPT/HCPCS: 80053; 80061; 85025